=== PATIENT | female | born 1990 | race Two or more races ===

== ENCOUNTER 2020-01-06 17:00 | Emergency (ER) | payer OTHER, SELFPAY ==
--- NOTE | 2020-01-06 18:13 | ED_ITS ---
HPI - URI/Sore Throat General Chief Complaint: Upper Respiratory Symptoms Stated Complaint: asthma Time Seen by Provider: 01/06/20 17:55 Source: patient Mode of arrival: ambulatory Limitations: no limitations History of Present Illness HPI Narrative: 29 y/o female presenting with flu like symptoms since yesterday. Had COVID in July and this feels similar. Using PRN albuterol with improvement in dry, cough. MD elicited complaint: fever and cough Pertinent past history: asthma Onset (ago): day(s) (1) Consistency: intermittent Severity: moderate Able to tolerate fluids by mouth: Yes Exacerbating factors: exertion Relieving factors: other (albuterol inhaler ) Associated symptoms: headache, rhinorrhea and nasal congestion Treatments prior to arrival: none Related Data Previous Rx's Medication Instructions Recorded albuterol sulfate [Ventolin HFA] 2 puff INHALATION Q4-6H PRN #8 g NS 01/06/20 Allergies Allergy/AdvReac Type Severity Reaction Status Date / Time oxycodone [OXYCODONE] Allergy Unknown ITCHING, Unverified 12/23/19 16:28 NAUSEA, HOT Review of Systems Constitutional: Constitutional: Reports body ache(s), Reports chills, Reports fatigue, Reports fever(s) and Reports headache(s) Eyes: Eyes: Reports no additional eye complaints ENT: Reports headache(s) and Reports nasal congestion Cardiovascular: Cardiovascular: Denies chest pain, Denies pedal edema, Denies lightheadedness and Reports dyspnea on exertion Respiratory: Respiratory: Denies chest congestion, Reports cough, Denies hemoptysis and Reports dyspnea on exertion Gastrointestinal: Gastrointestinal: Denies abdominal pain, Denies diarrhea, Denies nausea and Denies vomiting Genitourinary: Genitourinary: Denies dysuria Musculoskeletal: Musculoskeletal: Reports myalgias Neurologic: Reports headache(s) Endocrine: Endocrine: Reports fatigue Hematologic/Lymphatic: Hematologic/Lymphatic: Reports no additional hematologic/lymphatic complaints Allergic/Immunologic: Allergic/Immunologic: Reports no additional allergic/immunologic complaints [facility] Past Medical History Medical History (Updated 01/06/20 @ 19:11 by Sindy Mcknight) Asthma Social History Social History Advance Directives: No Advance Directives Information Provided: No Physical Exam Vital Signs and I&O and Narrative: Vital Signs and I&O: Vital Signs Temp 98.5 F 01/06/20 19:07 Pulse 87 01/06/20 19:07 Resp 20 01/06/20 19:07 BP 126/78 01/06/20 19:07 Pulse Ox 96 01/06/20 19:07 Intake & Output 01/06/20 01/06/20 01/07/20 06:59 18:59 06:59 Weight 81.647 kg Body Mass Index 35.2 Const: General: cooperative, healthy appearing, comfortable, no acute distress and well developed Nutritional Appearance: overweight Orientation/consciousness: patient oriented x3 Limitations: no limitations HENMT: Head: Yes normal to inspection Ears: hearing grossly normal bilaterally Face and sinus: Yes normal facial exam Mouth: Normal oral and palatal mucosa present Teeth and gingiva: dentition normal Throat: Yes posterior oropharynx normal Eyes: General: appearance normal, both eyes and all related structures Neck: Neck: Yes normal visual inspection Chest: Chest palpation & inspection: normal inspection of the chest Resp: Effort & Inspection: normal respiratory effort and able to speak in complete sentences Auscultation: clear to auscultation bilaterally Cardio: Rate: regular rate Rhythm: regular rhythm Heart sounds: S1 normal heart sound present and S2 normal heart sound present Neuro: General: patient oriented x3 Psych: Appearance: grossly normal Course Course Hospital Course: 29 y/o female presengint with flu-like symptoms since yesterday. Dry cough most bothersome. Nervous she has COVID again. VSS and lungs are clear. COVID swab sent and patient counseled. Stable for d/c. MDM - URI/Sore Throat Differential Diagnosis Differential diagnosis: Likely upper respiratory infection, sinusitis, viral infection, bronchitis and influenza Medical Records Attestation: I reviewed the patient's medical records. Critical Care Time Critical Care Time Critical Care Time: No Discharge Plan Discharge Clinical Impression: Acute viral syndrome Asthma Qualifiers: Asthma severity: mild Asthma persistence: intermittent Asthma complication type: uncomplicated Qualified Code(s): J45.20 - Mild intermittent asthma, uncomplicated Patient Disposition: Home, Self-Care Instructions: Viral Syndrome (ED), COVID-19 (Coronavirus Disease 2019) (ED) Additional Instructions: You were tested for COVID-19 today. We will call you with the results in 2-4 days. Take over the counter Cold/Flu medications for symptomatic relief. Stay hydrated. Take tylenol and/or motrin for fevers. Prescriptions: New albuterol sulfate [Ventolin HFA] 90 mcg/actuation HFA aerosol inhaler 2 puff inhalation Q4-6H PRN (Reason: shortness of breath or wheezing) Qty: 8 RF: 0
[2020-01-06 19:07] VITALS: BP 126/78; PULSE 87; RESP 20; TEMP 36.9; O2SAT 96; BMI 35.2
== END 2020-01-06 19:30 | disposition home or self-care (01) ==
PROVIDERS: Emergency Provider Emergency Medicine
DX: B34.9 Viral infection, unspecified (principal); R05 Cough; J45.20 Mild intermittent asthma, uncomplicated; Z20.828 Contact with and (suspected) exposure to other viral communicable diseases; Z86.19 Personal history of other infectious and parasitic diseases; Z79.899 Other long term (current) drug therapy
CPT/HCPCS: 36415; 87635; 99283

== ENCOUNTER 2020-07-13 16:16 | Emergency (ER) | payer OTHER, SELFPAY ==
--- NOTE | ~2020-07-13 | XR_ITS ---
EXAMINATION: XR CHEST CLINICAL INFORMATION: Cough and wheezing COMPARISON: 08/04/2019 TECHNIQUE: Frontal view of the chest was obtained. FINDINGS: Small nodular density right midlung seen previously measuring about 9 mm appears slightly larger on the current study measuring 13 mm in size. The exam is otherwise unremarkable. XR/XR chest 1V IMPRESSION: No acute intrathoracic disease. CT scan of the chest is recommended for evaluation of possible pulmonary nodule.
--- NOTE | ~2020-07-13 | US_ITS ---
EXAMINATION: PELVIC ULTRASOUND CLINICAL INFORMATION: Pelvic pain and cramping with history of IUD COMPARISON: Prior OB ultrasounds from 2015 TECHNIQUE: Both transabdominal endovaginal scanning was performed. FINDINGS: An anteverted anteflexed uterus is present measuring 10.0 x 3.2 x 4.7 cm for a volume of 80 mL. The endometrium appears normal at 1 cm in thickness. The IUD is present in the lower uterine segment tilted slightly to the right. Close to the cervical os. A nabothian cyst is present in the cervix. Both ovaries appear normal with the right measuring 2.6 x 2.2 x 2.1 cm for a volume of 6.3 mL and the left measuring 2.7 x 2.5 x 2.5 cm for volume 8.8 mL. No free fluid is present in the cul-de-sac US/US pelvic and transvaginal IMPRESSION: The IUD is positioned low in the endometrial canal very close to the cervical os. The exam is otherwise unremarkable.
[2020-07-13 17:23] VITALS: BP 111/60; PULSE 111; RESP 16; TEMP 36.8; O2SAT 98; BMI 32.2
[2020-07-13] MEDS: predniSONE 20 MG TABLET 60 MG PO (18:23)
[2020-07-13 18:30] LABS: COVID-19 Test Negative (Negative); IDNOW Serial# 08D9AD1C
--- NOTE | 2020-07-13 18:35 | ED.URI ---
HPI - URI/Sore Throat General Chief Complaint: Upper Respiratory Symptoms Stated Complaint: Covid symptoms/Asthma Time Seen by Provider: 07/13/20 17:30 Source: patient Mode of arrival: ambulatory Limitations: no limitations History of Present Illness HPI Narrative: 30-year-old female with past medical history of asthma here with complaints of cough, wheezing, post-tussive vomiting, body aches x2 days. Using albuterol and nebulizer at home with continued symptoms. No fevers. No chest pain, shortness of breath, leg swelling or pain. Also complaining of some pelvic cramping which she has had intermittently for months with spotting. No urinary symptoms, vaginal discharge. She tells me she has an IUD in place and feels like it may have moved. She did call her OB but is unable to get an appointment for several months. MD elicited complaint: cough Related Data Previous Rx's Medication Instructions Recorded albuterol sulfate [Ventolin HFA] 2 puff INHALATION Q4-6H PRN #8 g NS 01/06/20 prednisone 40 mg PO DAILY #8 tab 07/13/20 Allergies Allergy/AdvReac Type Severity Reaction Status Date / Time oxycodone [OXYCODONE] Allergy Unknown ITCHING, Unverified 12/23/19 16:28 NAUSEA, HOT Review of Systems Review of Systems: Yes all other systems are reviewed and are negative Constitutional: Constitutional: Reports no additional constitutional complaints, Reports body ache(s), Denies chills, Denies fever(s), Denies headache(s) and Denies weakness Eyes: Eyes: Reports no additional eye complaints and Denies change in vision ENT: Reports system reviewed and no additional complaints, except as documented, Denies dizziness, Denies headache(s), Denies nasal congestion, Denies nasal discharge and Denies neck pain Cardiovascular: Cardiovascular: Reports no additional cardiovascular complaints, Denies chest pain, Denies leg edema and Denies dyspnea Respiratory: Respiratory: Reports no additional respiratory complaints, Reports cough and Denies dyspnea Comments: Wheezing Gastrointestinal: Gastrointestinal: Reports no additional gastrointestinal complaints, Denies abdominal pain, Denies diarrhea, Reports nausea and Reports vomiting Genitourinary: Genitourinary: Reports no additional female genitourinary complaints, Reports abnormal vaginal bleeding, Denies dysuria, Reports pelvic pain (Cramping), Denies flank pain, Denies urinary incontinence, Denies urinary hesitancy, Denies urinary urgency, Denies vaginal discharge, Denies vaginal odor and Denies vaginal pruritus Musculoskeletal: Musculoskeletal: Reports no additional musculoskeletal complaints, Denies back pain, Denies arthralgias, Denies joint swelling, Denies neck pain, Denies numbness and Denies tingling Integumentary/Breasts: Skin/Breast: Reports system reviewed and no additional complaints, except as docu and Denies rash Neurologic: Reports system reviewed and no additional complaints, except as documented, Denies Abnormal speech present, Denies dizziness, Denies headache(s), Denies numbness, Denies tingling and Denies weakness PMFSH Past Medical History Attestation statement: The following information was validated with the patient. Source: old records reviewed and nursing notes reviewed Medical History Asthma Social History Social History Alcohol intake: never Smoking Status: Never smoker Use of substances other than those prescribed or required for medical reasons: No Advance Directives: No Advance Directives Information Provided: Yes Physical Exam Vital Signs: Vital Signs: Last Vital Signs Temp 98.5 F 07/13/20 20:20 Pulse 103 H 07/13/20 20:36 Resp 16 07/13/20 20:20 BP 127/74 07/13/20 20:20 Pulse Ox 99 07/13/20 20:20 Body Mass Index 32.2 Const: General: cooperative, healthy appearing, comfortable and no acute distress Orientation/consciousness: patient oriented x3 Limitations: no limitations HENMT: Head: Yes normal to inspection Ears: hearing grossly normal bilaterally General nose exam: Normal external nose present Face and sinus: Yes normal facial exam Mouth: Normal oral and palatal mucosa present Throat: Yes posterior oropharynx normal Eyes: General: appearance normal, both eyes and all related structures Pupils: Equal, round and reactive pupils present Neck: Neck: Yes normal visual inspection Chest: Chest palpation & inspection: normal inspection of the chest Resp: Other: Inspiratory and expiratory wheezing. Frequent dry cough noted Effort & Inspection: normal respiratory effort Cardio: Rate: regular rate Rhythm: regular rhythm Peripheral pulses: Peripheral pulses 2+ throughout GI: Inspection: Yes normal to inspection Palpation (GI): Soft to palpation and nontender Auscultation: normal bowel sounds Back/Spine/Pelvis: Thoracic/Lumbar Spine: thoracic and lumbar spine normal to inspection Skin: General skin exam: no rashes or lesions noted Neuro: General: patient oriented x3, no focal motor deficits and normal sensation to monofilament Cranial nerves: Yes Equal, round and reactive pupils present Cognition (Neuro): normal cognition Speech: No Abnormal speech present Gait exam (Neuro): Normal gait present Motor exam (neuro): 5/5 motor strength present throughout Extrem: General: Yes normal to inspection, Yes no pedal edema and Yes no calf tenderness Course Course Course Narrative: 30-year-old female here with symptoms of cough, wheezing, posttussive vomiting, body aches times several days. Unrelieved with home med. Inspiratory and expiratory wheezing on exam. Stable saturation. Will give DuoNeb, p.o. prednisone. Check chest x-ray and COVID screen. Also complaining of pelvic cramping which has been on and off for months with some intermittent spotting. Feels like her IUD was shifted and she would like it checked. No urinary symptoms or vaginal discharge. Denies current sexual activity and is not concern for STD exposure. Will check pelvic ultrasound. 2119-chest x-ray negative with exception of a right pulmonary nodule. Patient was informed of this result. She it was discussed with her that she will need an outpatient CT scan and that she should follow-up with her primary care doctor for this. COVID screen negative. Repeat exam with improved lung sounds and oxygen saturation greater than 98%. Likely asthma exacerbation. Will treat with course of prednisone and have follow-up with pulmonology. Patient tells me that she has been suffering with her asthma for the last year after having COVID-19 and has persistent shortness of breath and wheezing on relief with home albuterol. Will see pulmonology can assist with her symptoms. Pelvic ultrasound shows IUD in place. UA negative. Urine negative. Patient requesting for removal. Will refer to aviation engineer. Reviewed worrisome signs and symptoms of when to return to the emergency department. Comfortable discharge home. MDM - URI/Sore Throat Medical Records Attestation: I reviewed the patient's medical records. Lab Data Attestation: I reviewed the patient's lab results. Labs: Lab Results 07/13/20 07/13/20 07/13/20 Range/Units 18:11 20:25 20:25 Urine Color YELLOW Urine Appearance CLEAR Urine pH 6.0 (5.0-8.0) Ur Specific [place] >= 1.030 H (1.005-1.025) Urine Protein NEG (NEG-TRACE) MG/DL Urine Glucose (UA) NEG (NEG) MG/DL Urine Ketones NEG (NEG) MG/DL Urine Blood 1+ H (NEG) Urine Nitrite NEG (NEG) Ur Leukocyte Esterase NEG (NEG) Urine RBC 1-4 (0) /HPF Urine WBC 1-4 (0-4) /HPF Ur Squamous Epith Cells 1+ /LPF Urine Bacteria TRACE /LPF Urine Test NEGATIVE (NEGATIVE) COVID-19 ([place]) Negative (Negative) COVID-19 Clin Com See Note Imaging Data Chest x-ray: Attestation: I personally reviewed and interpreted this imaging study as follows: Radiologist's impression: EXAMINATION: XR CHEST CLINICAL INFORMATION: Cough and wheezing COMPARISON: 08/04/2019 TECHNIQUE: Frontal view of the chest was obtained. FINDINGS: Small nodular density right midlung seen previously measuring about 9 mm appears slightly larger on the current study measuring 13 mm in size. The exam is otherwise unremarkable. XR/XR chest 1V IMPRESSION: No acute intrathoracic disease. CT scan of the chest is recommended for evaluation of possible pulmonary nodule. pelvic US: Attestation: I personally reviewed and interpreted this imaging study as follows: Radiologist's impression: EXAMINATION: PELVIC ULTRASOUND CLINICAL INFORMATION: Pelvic pain and cramping with history of IUD COMPARISON: Prior OB ultrasounds from 2014 TECHNIQUE: Both transabdominal endovaginal scanning was performed. FINDINGS: An anteverted anteflexed uterus is present measuring 10.0 x 3.2 x 4.7 cm for a volume of 80 mL. The endometrium appears normal at 1 cm in thickness. The IUD is present in the lower uterine segment tilted slightly to the right. Close to the cervical os. A nabothian cyst is present in the cervix. Both ovaries appear normal with the right measuring 2.6 x 2.2 x 2.1 cm for a volume of 6.3 mL and the left measuring 2.7 x 2.5 x 2.5 cm for volume 8.8 mL. No free fluid is present in the cul-de-sac US/US pelvic and transvaginal IMPRESSION: The IUD is positioned low in the endometrial canal very close to the cervical os. The exam is otherwise unremarkable. Discharge Plan Discharge Clinical Impression: Asthma, Pelvic pain Patient Disposition: Home, Self-Care Instructions: Asthma (ED), Pelvic Pain (ED) Additional Instructions: Next dose of prednisone tomorrow I have given you a referral for pulmonology and aviation engineer Your chest x-ray shows what might be a pulmonary nodule. It is recommend that you follow-up with your primary care doctor for a CT scan of the chest Prescriptions: New prednisone 20 mg tablet 40 mg PO DAILY Qty: 8 RF: 0 No Action albuterol sulfate [Ventolin HFA] 90 mcg/actuation HFA aerosol inhaler 2 puff inhalation Q4-6H PRN (Reason: shortness of breath or wheezing) Qty: 8 RF: 0 Referrals: Silas Calix MD [Physician] - 2 days Austin Harley MD [Physician] - 2 days Interventions: ED Discharge Assessment Last Done: 07/13/20 21:02 Discharge Date/Time: 07/13/20 21:19
[2020-07-13 18:37] VITALS: BP 126/59; PULSE 82; RESP 16; TEMP 36.9; O2SAT 98
[2020-07-13 20:20] VITALS: BP 127/74; PULSE 102; RESP 16; TEMP 36.9; O2SAT 99
[2020-07-13 20:33] LABS: Glucose Urine UA NEG (NEG); Leukocyte Esterase Urine NEG (NEG); Nitrite Urine NEG (NEG); Specific Gravity - Urine >= 1.030 (1.005-1.025); Urine Blood 1+ (NEG); Urine Ketones NEG (NEG); Urine Protein NEG (NEG-TRACE)
[2020-07-13 20:35] LABS: Appearance Urine CLEAR; Color Urine YELLOW; UPreg QC Valid YES; Urine Pregnancy NEGATIVE (NEGATIVE)
[2020-07-13 20:36] VITALS: PULSE 103; O2SAT 99
[2020-07-13] MEDS: Albuterol/Iprat 2.5/0.5MG 3 ML AMPUL.NEB INHALE (20:36)
[2020-07-13 20:40] LABS: Bacteria Urine TRACE /LPF; Squamous Epithelial Cell Urine 1+ /LPF
== END 2020-07-13 21:19 | disposition home or self-care (01) ==
PROVIDERS: Nurse Practitioner Family; Emergency Provider Emergency Medicine; PCP Pediatrics
DX: R05 Cough (principal); M79.10 Myalgia, unspecified site; R10.2 Pelvic and perineal pain; Z20.822 Contact with and (suspected) exposure to COVID-19; J45.909 Unspecified asthma, uncomplicated; R91.1 Solitary pulmonary nodule
CPT/HCPCS: 36415; 71045; 76830; 76856; 81001; 81025; 87635; 94640; 99284

== ENCOUNTER → 2020-07-17 15:31 | Outpatient (BNVA) | payer OTHER, SELFPAY | PROVIDERS: PCP Pediatrics; Visit Provider Internal Medicine | DX: J45.20 Mild intermittent asthma, uncomplicated (principal); R91.1 Solitary pulmonary nodule; J40 Bronchitis, not specified as acute or chronic; Z79.51 Long term (current) use of inhaled steroids | CPT/HCPCS: 99202 ==

== ENCOUNTER 2020-10-21 23:16 | Emergency (ER) | payer OTHER, SELFPAY ==
--- NOTE | ~2020-10-21 | XR_ITS ---
EXAMINATION: XR CHEST CLINICAL INFORMATION: Dyspnea. COMPARISON: Most recent chest radiograph dated 07/13/2020. TECHNIQUE: Frontal view of the chest was obtained. FINDINGS: The lungs are clear. The cardiomediastinal silhouette is normal in size. There is no pleural effusion or pneumothorax. No acute osseous abnormality. XR/XR chest 1V IMPRESSION: No acute cardiopulmonary findings. Previously seen nodular density within the right midlung is not well visualized on the current examination.
[2020-10-21 23:31] VITALS: BP 131/90; PULSE 112; RESP 28; TEMP 37.2; O2SAT 98; BMI 31.1
--- NOTE | 2020-10-21 23:35 | ED_ITS ---
HPI - Asthma General Chief Complaint: Asthma Stated Complaint: SOB/asthma Time Seen by Provider: 10/21/20 23:35 Source: patient and family (Mother) Mode of arrival: ambulatory History of Present Illness HPI Narrative: 30-year-old female with history of asthma and bronchitis presents with 1 week of worsening shortness of breath and states that her pump is no longer working and she has been using at approximately 3 to 4 times a day without improvement. She denies any associated COVID-19 exposure, travel, fevers, chills, body aches, headache, new cough or sore throat. Related Data Previous Rx's Medication Instructions Recorded albuterol sulfate [Ventolin HFA] 2 puff INHALATION Q4-6H PRN #8 g NS 01/06/20 prednisone 40 mg PO DAILY #8 tab 07/13/20 azithromycin 250 mg tablet See Rx Instructions PO .COMPLEX 5 07/17/20 Days #6 tab prednisone 40 mg PO DAILY 4 Days #8 tab 10/22/20 Allergies Allergy/AdvReac Type Severity Reaction Status Date / Time oxycodone [OXYCODONE] Allergy Unknown ITCHING, Verified 10/21/20 23:30 NAUSEA, HOT Review of Systems Review of Systems: Pertinent positives and negatives as stated HPI 10 point review of systems is otherwise negative. PMFSH Past Medical History Source: nursing notes reviewed Medical History Asthma Bronchitis Pulmonary nodule, right Social History Social History Alcohol intake: never Advance Directives: No Advance Directives Information Provided: No Physical Exam Vital Signs: Vital Signs: Last Vital Signs Temp 98.9 F 10/21/20 23:31 Pulse 131 H 10/22/20 01:23 Resp 20 10/22/20 01:23 BP 120/75 10/22/20 01:23 Pulse Ox 99 10/22/20 01:23 Body Mass Index 31.1 VITAL SIGNS: Reviewed. GENERAL: Well developed, well nourished, in no acute distress. HEAD: Normocephalic/atraumatic EYES: PERRLA, EOMI EARS: Ext canals without abnormality, TMs non-bulging and non-erythematous NOSE: Nares patent bilateral OROPHARYNX: no oral lesions noted, posterior pharynx clear NECK: Supple, no adenopathy LUNGS: Audible wheeze, decreased breath sounds, tachypnea, but able to speak in full sentences. SpO2<98> CARDIOVASCULAR: Regular rate and rhythm without noted murmurs ABDOMEN: Obese, soft, non-tender, non-distended with bowel sounds. SKIN: Inspection of the skin reveals no rashes NEUROLOGIC: Alert and oriented x 4. Course Course Course Narrative: 30-year-old female with history and clinical presentation suggestive of moderate to severe asthma exacerbation. Patient received steroids, to hour long albuterol treatments as well as Mag sulfate. On re- evaluation patient has had almost complete resolution of her symptoms, is relaxed and breathing easily with good oxygenation. Review of all investigations otherwise negative for acute findings. MDM - Asthma Lab Data Labs: Lab Results 10/21/20 Range/Units 23:57 COVID-19 ([place]) Negative (Negative) COVID-19 Clin Com See Note Discharge Plan Discharge Clinical Impression: Asthma exacerbation Patient Disposition: Home, Self-Care Instructions: Asthma (ED) Additional Instructions: Resume all home medications as prescribed. Over the next 24-48 hours you will need to consistently use your albuterol inhaler every 4-6 hours administering 2 pumps. Please follow-up with your primary care provider for re-evaluation and further outpatient management. Return to the ER for acute worsening of symptoms. Prescriptions: New prednisone 20 mg tablet 40 mg PO DAILY 4 Days Qty: 8 RF: 0 No Action prednisone 20 mg tablet 40 mg PO DAILY Qty: 8 RF: 0 albuterol sulfate [Ventolin HFA] 90 mcg/actuation HFA aerosol inhaler 2 puff inhalation Q4-6H PRN (Reason: shortness of breath or wheezing) Qty: 8 RF: 0 azithromycin 250 mg tablet See Rx Instructions PO .COMPLEX 5 Days Qty: 6 RF: 0 Referrals: Physician,Unknown [Primary Care Provider] - 2 days
--- NOTE | 2020-10-21 23:35 | PC.NURSE ---
SPO2 98% ROOM AIR, NO AUDIBLE WHEEZING UPON AUSCULTATION WITH SCOPE. SKIN WARM/PINK/DRY.
[2020-10-21] MEDS: methylPREDNISolone Sod Succ 125 MG/2 ML VIAL IVPUSH (23:42)
[2020-10-21] MEDS: Albuterol Sulfate (0.083%) 2.5 MG/3 ML VIAL.NEB 10 MG INHALE (23:51)
[2020-10-21 23:52] VITALS: PULSE 105; O2SAT 95
--- NOTE | 2020-10-21 23:52 | PC.NURSE ---
This RN to bedside approx 10 min ago, notes pt with audible wheezing, tripoding, able to speak in 4-5 word sentences. Pt lungs with diminished breath sounds throughout. Pt placed on facing baster jumpbasting, Dr Beach brought to bedside. Dr Beach ordered solumedrol and 10mg albuterol updraft. Pt medicated with solumedrol and respiratory called. Prior to respiratory's arrival to ED, this RN medicated pt with albuterol neb. Pt ST on facing baster jumpbasting. Pt to be swabbed for covid. Stretcher low locked, rails raised, call hammonds within reach.
[2020-10-21 23:54] VITALS: BP 130/70; PULSE 108; RESP 26; O2SAT 98
[2020-10-22 00:30] VITALS: PULSE 128; O2SAT 99
[2020-10-22 00:36] LABS: COVID-19 Test Negative (Negative); IDNOW Serial# 08D9AD1C
[2020-10-22] MEDS: Albuterol Sulfate (0.083%) 2.5 MG/3 ML VIAL.NEB 10 MG INHALE (00:36)
[2020-10-22] MEDS: Magnesium Sulfate/H2O 2 GM/50 ML PIGGYBACK IV (00:37)
[2020-10-22 00:38] VITALS: BP 142/50; PULSE 130; RESP 24; O2SAT 98
--- NOTE | 2020-10-22 00:40 | PC.NURSE ---
this RN confirmed 2ng 10mg albuterol tx with dr wilkins.
--- NOTE | 2020-10-22 01:22 | PC.NURSE ---
Pt completed 2nd neb tx, reports I can breathe now Pt speaking in complete clear sentences. IV mag continues to infuse.
[2020-10-22 01:23] VITALS: BP 120/75; PULSE 131; RESP 20; O2SAT 99
[2020-10-22 02:29] VITALS: BP 118/63; PULSE 126; RESP 23; O2SAT 96
== END 2020-10-22 02:37 | disposition home or self-care (01) ==
PROVIDERS: Emergency Provider Student in an Organized Health Care Education/Training Program
DX: J45.901 Unspecified asthma with (acute) exacerbation (principal); Z79.899 Other long term (current) drug therapy; Z20.822 Contact with and (suspected) exposure to COVID-19
CPT/HCPCS: 36415; 71045; 87635; 94640; 94644; 94645; 96365; 96366; 96375; 99284; J2930; J3475

== ENCOUNTER → 2020-11-16 10:50 | Outpatient (BNVA) | payer OTHER, SELFPAY | PROVIDERS: Visit Provider Advanced Practice Midwife | DX: Z30.432 Encounter for removal of intrauterine contraceptive device (principal) | CPT/HCPCS: 58301 ==

== ENCOUNTER 2021-01-09 20:42 | Emergency (ER) | payer OTHER, SELFPAY ==
--- NOTE | ~2021-01-09 | US_ITS ---
EXAMINATION: US OBSTETRICAL ULTRASOUND CLINICAL INFORMATION: 8 weeks with pain and vaginal bleeding. Rule out miscarriage. COMPARISON: None. LMP: 11/15/2020. Gestational age by maternal dates is 8 weeks 0 days. Estimated date of delivery by maternal dates is 08/22/2021. TECHNIQUE: Transabdominal and endovaginal sonographic evaluation of the pelvis. FINDINGS: There is a single intrauterine gestational sac with visible yolk sac. There is no pole seen at this time. There is a mean sac diameter measuring 0.94 cm. This yields a gestational age of 5 weeks 4 days. Trace fluid noted near the gestational sac which may represent a subchorionic hemorrhage measuring 0.4 x 0.3 x 0.3 cm.. JOSE (estimated date of delivery): 09/08/2021 +/- 4 days. MATERNAL ADNEXA: The right maternal ovary measures 2.6 x 2 x 1.9 cm. 1.5 cm corpus luteal cyst noted. The left maternal ovary measures 2.4 x 2.2 x 1.7 cm. There is no significant maternal adnexal mass. Trace pelvic free fluid. US/US OB pelvic and transvaginal IMPRESSION: 1. Single intrauterine gestational sac with ultrasound gestational age of 5 weeks 4 days +/- 4 days. No pole seen, likely associated with the early stage of . 2. Estimated date of delivery is 09/08/2021 +/- 4 days. 3. Likely tiny subchorionic hemorrhage.
[2021-01-09 21:48] VITALS: BP 134/85; PULSE 94; RESP 18; TEMP 36.8; O2SAT 100; BMI 44.9
[2021-01-09 22:45] LABS: MANUAL DIFF FLAG NO
[2021-01-09 22:46] LABS: Basophils Percent Auto 0.2 % (0-2); Eosinophils Absolute Auto 0.1 X10*3/uL (0.0-0.4); Eosinophils Percent Auto 1.4 % (0-4); Hematocrit 38.4 % (37-47); Imm Gran Abs Auto 0.03 X10*3/uL (0.00-0.03); Imm Gran Pct Auto 0.3 % (0.0-0.4); Lymphocytes Absolute Auto 2.3 X10*3/uL (1.2-4.9); Lymphocytes Percent Auto 23.6 % (20-40); Mean Corpuscular HGB Conc 33.9 g/dl (31.0-35.0); Mean Corpuscular Volume 91.4 fL (80-98); Mean Platelet Volume 10.2 fL (9.4-12.3); Monocytes Absolute Auto 0.6 X10*3/uL (0.1-1.2); Neutrophils Absolute Auto 6.6 X10*3/uL (2.0-8.3); Neutrophils Percent Auto 68.5 % (45-73); Platelet Count 226 X10*3/uL (160-400); Red Cell Distribution Width 12.1 % (11.0-16.0); White Blood Count 9.7 X10*3/uL (4.8-10.8)
[2021-01-09 22:48] LABS: Appearance Urine HAZY; Color Urine YELLOW; Glucose Urine UA NEG (NEG); Leukocyte Esterase Urine 2+ (NEG); Nitrite Urine NEG (NEG); Specific Gravity - Urine 1.025 (1.005-1.025); UACC Culture Trigger YES; Urine Blood 3+ (NEG); Urine Ketones NEG (NEG); Urine Protein NEG (NEG-TRACE)
[2021-01-09 22:49] LABS: UPreg QC Valid YES; Urine Pregnancy POSITIVE (NEGATIVE)
[2021-01-09 22:53] LABS: Mucus Urine 2+ /LPF; Squamous Epithelial Cell Urine 3+ /LPF
[2021-01-09 22:54] LABS: Bacteria Urine 2+ /LPF; Renal Epithelial Cells Urine 1+ /LPF; UACC CULT YES
[2021-01-09 23:03] LABS: Alanine Aminotransferase 36 U/L (0-31); Albumin Level 4.2 g/dL (3.5-5.0); Alkaline Phosphatase 65 U/L (39-117); Anion Gap 13 (12-20); Aspartate Amino Transferase 16 U/L (5-31); Bilirubin Total 0.3 mg/dL (0.0-1.0); Blood Urea Nitrogen 7 mg/dL (9-16); Calcium 8.8 mg/dL (8.4-10.2); Carbon Dioxide 22 mmol/L (22-29); Chloride 109 mmol/L (96-108); Creatinine Clr Calc Pharmacy 121.1; Estimated Glomerular Filt Rate > 60; Glucose Random 92 mg/dL (60-115); Potassium 4.1 mmol/L (3.3-5.1); Sodium 140 mmol/L (135-145); Total Protein 6.9 g/dL (6.5-8.0)
[2021-01-09 23:45] LABS: HCG Quantitative 4960 mIU/mL
[2021-01-10] VITALS: BP 94/53; PULSE 86; RESP 18; TEMP 36.6; O2SAT 99
--- NOTE | 2021-01-10 00:10 | ED.FEMALEGU ---
HPI - Female Genitourinary General Chief complaint: Vaginal Bleeding Stated complaint: vag bleed - 7wks preg Time Seen by Provider: 01/09/21 22:50 Source: patient Mode of arrival: ambulatory Limitations: no limitations History of Present Illness HPI Narrative: Patient 4 or 8 months complaining of pain in the left lower abdominal and suprapubic area with bright red vaginal spotting just started 2 hours prior to arrival no nausea no vomiting Related Data Home Medications Medication Instructions Recorded Confirmed levonorgestrel 20 mcg/24 hours (7 INTRAUTERINE 11/16/20 yrs) 52 mg intrauterine device (Mirena) Previous Rx's Medication Instructions Recorded Ventolin HFA 90 mcg/actuation 2 puff INHALATION Q4-6H PRN #8 g NS 01/06/20 aerosol inhaler (albuterol sulfate) prednisone 20 mg tablet 40 mg PO DAILY #8 tab 07/13/20 azithromycin 250 mg tablet See Rx Instructions PO .COMPLEX 5 07/17/20 Days #6 tab prednisone 20 mg tablet 40 mg PO DAILY 4 Days #8 tab 10/22/20 Allergies Allergy/AdvReac Type Severity Reaction Status Date / Time oxycodone [OXYCODONE] Allergy Unknown ITCHING, Verified 11/16/20 11:00 NAUSEA, HOT Review of Systems Review of Systems: Yes all other systems are reviewed and are negative PMFSH Past Medical History Medical History Asthma Bronchitis Pulmonary nodule, right Surgical History History of tonsillectomy Hx of adenoidectomy Hx of section Social History Social History Alcohol intake: never Patient Tobacco Use Status: Never used Tobacco Advance Directives: No Advance Directives Information Provided: No Patient : Yes Physical Exam Vital Signs: Vital Signs: Last Vital Signs Temp 97.9 F 01/10/21 00:00 Pulse 86 01/10/21 00:00 Resp 18 01/10/21 00:00 BP 115/70 01/10/21 00:19 Pulse Ox 99 01/10/21 00:00 Body Mass Index 44.9 Appearance: Alert. Oriented X3. No acute distress. Eyes: PERRLA, No Nystagmus ENT: Pharynx normal. Oral Mucosa moist Neck: Normal inspection. Neck supple. CVS: Normal heart rate and rhythm. Pulses normal. Respiratory: No respiratory distress. Equal air entry bilateral, no wheezing/rales/rhonchi Abdomen: Soft and nontender. Bowel sounds are present, no mass palpable, no CVA tenderness Skin: Skin warm and dry. Normal skin color. Normal skin turgor. Extremities: No lower extremity edema. No calf tenderness Neuro: Oriented X 3. 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 Result diagrams: 01/09/21 22:35 01/09/21 22:35 Labs: Lab Results 01/09/21 01/09/21 01/09/21 Range/Units 22:35 22:35 22:35 WBC 9.7 (4.8-10.8) X10*3/uL RBC 4.20 (4.20-5.50) X10*6/uL Hgb 13.0 (12.0-16.0) g/dl Hct 38.4 (37-47) % MCV 91.4 (80-98) fL MCH 31.0 (27.0-33.0) pg MCHC 33.9 (31.0-35.0) g/dl RDW 12.1 (11.0-16.0) % Plt Count 226 (160-400) X10*3/uL MPV 10.2 (9.4-12.3) fL Immature Gran % (Auto) 0.3 (0.0-0.4) % Neut % (Auto) 68.5 (45-73) % Lymph % (Auto) 23.6 (20-40) % [place] % (Auto) 6.0 (2-11) % Eos % (Auto) 1.4 (0-4) % Baso % (Auto) 0.2 (0-2) % Lymph # (Auto) 2.3 (1.2-4.9) X10*3/uL [place] # (Auto) 0.6 (0.1-1.2) X10*3/uL Eos # (Auto) 0.1 (0.0-0.4) X10*3/uL Baso # (Auto) 0.0 (0.0-0.2) X10*3/uL Abs Immat Gran (auto) 0.03 (0.00-0.03) X10*3/uL Absolute Neuts (auto) 6.6 (2.0-8.3) X10*3/uL Absolute Nucleated RBC 0.000 (0.0-0.012) X10*3/uL Nucleated RBC % (auto) 0.0 (0.0-0.2) /100WBC Sodium 140 (135-145) mmol/L Potassium 4.1 (3.3-5.1) mmol/L Chloride 109 H (96-108) mmol/L Carbon Dioxide 22 (22-29) mmol/L Anion Gap 13 (12-20) BUN 7 L (9-16) mg/dL Creatinine 0.74 (0.5-1.4) mg/dL Estim Creat Clear Calc 121.1 Estimated GFR > 60 Random Glucose 92 (60-115) mg/dL Calcium 8.8 (8.4-10.2) mg/dL Total Bilirubin 0.3 (0.0-1.0) mg/dL AST 16 (5-31) U/L ALT 36 H (0-31) U/L Alkaline Phosphatase 65 (39-117) U/L Total Protein 6.9 (6.5-8.0) g/dL Albumin 4.2 (3.5-5.0) g/dL Beta HCG, Quant 4960 mIU/mL Urine Color YELLOW Urine Appearance HAZY Urine pH 6.0 (5.0-8.0) Ur Specific [place] 1.025 (1.005-1.025) Urine Protein NEG (NEG-TRACE) MG/DL Urine Glucose (UA) NEG (NEG) MG/DL Urine Ketones NEG (NEG) MG/DL Urine Blood 3+ H (NEG) Urine Nitrite NEG (NEG) Ur Leukocyte Esterase 2+ H (NEG) Urine RBC 5-9 H (0) /HPF Urine WBC 10-14 H (0-4) /HPF Ur Squamous Epith Cells 3+ /LPF Ur Renal Epithelial Cell 1+ /LPF Urine Bacteria 2+ /LPF Urine Mucus 2+ /LPF Urine Test (NEGATIVE) 01/09/21 Range/Units 22:35 WBC (4.8-10.8) X10*3/uL RBC (4.20-5.50) X10*6/uL Hgb (12.0-16.0) g/dl Hct (37-47) % MCV (80-98) fL MCH (27.0-33.0) pg MCHC (31.0-35.0) g/dl RDW (11.0-16.0) % Plt Count (160-400) X10*3/uL MPV (9.4-12.3) fL Immature Gran % (Auto) (0.0-0.4) % Neut % (Auto) (45-73) % Lymph % (Auto) (20-40) % [place] % (Auto) (2-11) % Eos % (Auto) (0-4) % Baso % (Auto) (0-2) % Lymph # (Auto) (1.2-4.9) X10*3/uL [place] # (Auto) (0.1-1.2) X10*3/uL Eos # (Auto) (0.0-0.4) X10*3/uL Baso # (Auto) (0.0-0.2) X10*3/uL Abs Immat Gran (auto) (0.00-0.03) X10*3/uL Absolute Neuts (auto) (2.0-8.3) X10*3/uL Absolute Nucleated RBC (0.0-0.012) X10*3/uL Nucleated RBC % (auto) (0.0-0.2) /100WBC Sodium (135-145) mmol/L Potassium (3.3-5.1) mmol/L Chloride (96-108) mmol/L Carbon Dioxide (22-29) mmol/L Anion Gap (12-20) BUN (9-16) mg/dL Creatinine (0.5-1.4) mg/dL Estim Creat Clear Calc Estimated GFR Random Glucose (60-115) mg/dL Calcium (8.4-10.2) mg/dL Total Bilirubin (0.0-1.0) mg/dL AST (5-31) U/L ALT (0-31) U/L Alkaline Phosphatase (39-117) U/L Total Protein (6.5-8.0) g/dL Albumin (3.5-5.0) g/dL Beta HCG, Quant mIU/mL Urine Color Urine Appearance Urine pH (5.0-8.0) Ur Specific [place] (1.005-1.025) Urine Protein (NEG-TRACE) MG/DL Urine Glucose (UA) (NEG) MG/DL Urine Ketones (NEG) MG/DL Urine Blood (NEG) Urine Nitrite (NEG) Ur Leukocyte Esterase (NEG) Urine RBC (0) /HPF Urine WBC (0-4) /HPF Ur Squamous Epith Cells /LPF Ur Renal Epithelial Cell /LPF Urine Bacteria /LPF Urine Mucus /LPF Urine Test POSITIVE H (NEGATIVE) Discharge Plan Discharge Clinical Impression: Threatened Patient Disposition: Home, Self-Care Instructions: Threatened Miscarriage (ED) Additional Instructions: Rest as advised Follow-up with your OB G Report to ER if heavy bleeding Prescriptions: No Action prednisone 20 mg tablet 40 mg PO DAILY Qty: 8 RF: 0 prednisone 20 mg tablet 40 mg PO DAILY 4 Days Qty: 8 RF: 0 albuterol sulfate [Ventolin HFA] 90 mcg/actuation HFA aerosol inhaler 2 puff inhalation Q4-6H PRN (Reason: shortness of breath or wheezing) Qty: 8 RF: 0 azithromycin 250 mg tablet See Rx Instructions PO .COMPLEX 5 Days Qty: 6 RF: 0 Mirena 20 mcg/24 hours (6 yrs) 52 mg intrauterine device intrauterine RF: 0 Referrals: Austin Harley MD [Physician] - 1 week
[2021-01-10 00:19] VITALS: BP 115/70
[2021-01-10] MEDS: Ondansetron ODT 4 MG TAB.RAPDIS TRANSLINGU (00:25)
[2021-01-10] MEDS: Acetaminophen 325 MG TABLET 650 MG PO (00:25)
== END 2021-01-10 01:56 | disposition home or self-care (01) ==
PROVIDERS: Emergency Provider Internal Medicine
DX: O20.9 Hemorrhage in early pregnancy, unspecified (principal); Z3A.20 20 weeks gestation of pregnancy
CPT/HCPCS: 36415; 76801; 76817; 80053; 81001; 81025; 84702; 85025; 87086; 99284

== ENCOUNTER 2021-01-18 16:57 | Emergency (ER) | payer OTHER, SELFPAY ==
--- NOTE | ~2021-01-18 | US_ITS ---
EXAMINATION: US OBSTETRICAL ULTRASOUND CLINICAL INFORMATION: Bleeding and decreased serum quantitative hCG COMPARISON: 01/10/2021. LMP: 11/05/2020. Gestational age by maternal dates is 10 weeks 4 days. Estimated date of delivery by maternal dates is 08/12/2021. TECHNIQUE: Ultrasound of the maternal pelvis is performed using transabdominal transducer. M-mode Doppler is also performed. FINDINGS: There is a single intrauterine gestational sac without a yolk sac or embryo. Based on the mean sac diameter of 1.3 cm, the sonographic age is 6 weeks 1 day, sonographic JOSE 09/12/2021 since the prior ultrasound 01/10/2021, there has been 4 days less than expected interval growth. No embryo or cardiac activity identified. CRL (crown rump length): 1.3 cm (6 weeks 1 day +/- 4 days). JOSE (estimated date of delivery): 09/12/2021 +/- 4 days. MATERNAL ADNEXA: The right maternal ovary measures 2.5 x 2.3 x 1.9 cm. No adnexal mass. The left maternal ovary measures 2.2 x 2.0 x 1.6 cm. No adnexal mass. There is no significant maternal adnexal mass. No maternal pelvic ascites. US/US OB <= 14 weeks fetus IMPRESSION: 1. Single intrauterine gestation with ultrasound gestational age of 6 weeks 1 day +/- 4 days. Since the prior study 01/10/2021, there has been 4 days less than expected interval growth. The absence of an embryo with a heart beat 7-10 days after a scan that showed a gestational sac with a yolk sac (01/10/2021) is suspicious but not diagnostic of early failure. Consider additional follow-up ultrasound on 01/25/2021 for later as clinically indicated. 2. Estimated date of delivery is 09/12/2021 +/- 4 days. 3. No maternal adnexal mass or pelvic ascites.
[2021-01-18 16:59] VITALS: BP 132/78; PULSE 93; RESP 18; TEMP 36.1; O2SAT 99; BMI 46.8
--- NOTE | 2021-01-18 17:22 | ED.PREGNANCY ---
HPI - General Chief complaint: Vaginal Bleeding Stated complaint: vag bleed 6wks preg Time Seen by Provider: 01/18/21 17:08 Source: patient and old records reviewed Mode of arrival: ambulatory Limitations: no limitations History of Present Illness Complaint: other (pelvic pain, spotting) Onset (ago): hour(s) (since 2am today) Pain Consistency: intermittent Location: pelvis Severity: moderate Quality: Cramping Radiation: abdomen Relieving factors: none Exacerbating factors: none Associated symptoms: vaginal bleeding (no clots, one pad all day, when she wipes) Vaginal bleeding: light Patient : Yes Number of Weeks : 6 weeks by US on 01/10 OB History - Current : other (second visit for bleeding no OB appointment until 01/23) OB History - Previous Pregnancies: preeclampsia care: previous ultrasound confirms IUP Related Data Home Medications Medication Instructions Recorded Confirmed levonorgestrel 20 mcg/24 hours (7 INTRAUTERINE 11/16/20 yrs) 52 mg intrauterine device (Mirena) Previous Rx's Medication Instructions Recorded Ventolin HFA 90 mcg/actuation 2 puff INHALATION Q4-6H PRN #8 g NS 01/06/20 aerosol inhaler (albuterol sulfate) prednisone 20 mg tablet 40 mg PO DAILY #8 tab 07/13/20 azithromycin 250 mg tablet See Rx Instructions PO .COMPLEX 5 07/17/20 Days #6 tab prednisone 20 mg tablet 40 mg PO DAILY 4 Days #8 tab 10/22/20 Allergies Allergy/AdvReac Type Severity Reaction Status Date / Time oxycodone [OXYCODONE] Allergy Unknown ITCHING, Verified 11/16/20 11:00 NAUSEA, HOT Review of Systems Review of Systems: Constitutional : No Fever, No Chills ENT/Mouth : No sore throat, No Rhinorrhea Eyes: No Eye Pain, No Redness Cardiovascular : No Chest Pain, No SOB Respiratory : No Cough, No Sputum, No Wheezing Gastrointestinal : no Nausea, No Vomiting, No Diarrhea, positive abdominal pain, Genitourinary : positive irregular bleeding, No Dysuria, No Urinary Frequency, positive pelvic pain Musculoskeletal : No Myalgias Skin : No rash Neuro : No Weakness, No Headache Psych : No Anxiety/Panic, No Depression Heme/Lymph: No bruising, No Lymphadenopathy Endocrine : No Polyuria, No Polydipsia All other systems reviewed and are negative PMFSH Past Medical History Attestation statement: The following information was validated with the patient. Medical History Asthma Bronchitis Pulmonary nodule, right Surgical History History of tonsillectomy Hx of adenoidectomy Hx of section Social History Social History Alcohol intake: never Patient Tobacco Use Status: Never used Tobacco Advance Directives: No Advance Directives Information Provided: No Patient : Yes Physical Exam Vital Signs: Vital Signs: Last Vital Signs Temp 98.3 F 01/18/21 17:25 Pulse 88 01/18/21 17:25 Resp 17 01/18/21 17:25 BP 131/74 01/18/21 17:25 Pulse Ox 97 01/18/21 17:25 Body Mass Index 46.8 Appearance: Alert. Oriented X3. No acute distress. Eyes: Pupils equal, round and reactive to light. ENT: Pharynx normal. Neck: Normal inspection. Neck supple. CVS: Normal heart rate and rhythm. Pulses normal. Respiratory: No respiratory distress. Breath sounds normal. Abdomen: Soft and mild diffuse ttp no rebound or guarding : no blood noted, os closed Skin: Skin warm and dry. Normal skin color. Normal skin turgor. Extremities: No lower extremity edema. No calf ttp Neuro: Oriented X 3. No motor deficit. No sensory deficit. Course Course Course Narrative: message sent to Dr. Harley 740pm - outpatient follow up MDM - OB/Uterine Contractions MDM Narrative Medical decision making narrative: hx of pre-eclampsia c/o abdominal cramps like its her period and spotting when she wipes, she had confirmed IUP on 01/10 - will obtain basic labs, UA, given tylenol, quant level and Rh status, dispo per results and findings. Likely threatened miscarriage Lab Data Result diagrams: 01/18/21 17:55 01/18/21 17:55 Labs: Lab Results 01/18/21 01/18/21 01/18/21 Range/Units 17:55 17:55 17:55 WBC 7.0 (4.8-10.8) X10*3/uL RBC 4.48 (4.20-5.50) X10*6/uL Hgb 13.8 (12.0-16.0) g/dl Hct 40.5 (37-47) % MCV 90.4 (80-98) fL MCH 30.8 (27.0-33.0) pg MCHC 34.1 (31.0-35.0) g/dl RDW 11.9 (11.0-16.0) % Plt Count 237 (160-400) X10*3/uL MPV 10.3 (9.4-12.3) fL Immature Gran % (Auto) 0.3 (0.0-0.4) % Neut % (Auto) 68.1 (45-73) % Lymph % (Auto) 25.9 (20-40) % [place] % (Auto) 4.0 (2-11) % Eos % (Auto) 1.4 (0-4) % Baso % (Auto) 0.3 (0-2) % Lymph # (Auto) 1.8 (1.2-4.9) X10*3/uL [place] # (Auto) 0.3 (0.1-1.2) X10*3/uL Eos # (Auto) 0.1 (0.0-0.4) X10*3/uL Baso # (Auto) 0.0 (0.0-0.2) X10*3/uL Abs Immat Gran (auto) 0.02 (0.00-0.03) X10*3/uL Absolute Neuts (auto) 4.8 (2.0-8.3) X10*3/uL Absolute Nucleated RBC 0.000 (0.0-0.012) X10*3/uL Nucleated RBC % (auto) 0.0 (0.0-0.2) /100WBC Sodium 138 (135-145) mmol/L Potassium 4.2 (3.3-5.1) mmol/L Chloride 107 (96-108) mmol/L Carbon Dioxide 21 L (22-29) mmol/L Anion Gap 14 (12-20) BUN 9 (9-16) mg/dL Creatinine 0.75 (0.5-1.4) mg/dL Estim Creat Clear Calc 122.7 Estimated GFR > 60 Random Glucose 105 (60-115) mg/dL Calcium 9.5 D (8.4-10.2) mg/dL Total Bilirubin (0.0-1.0) mg/dL Direct Bilirubin (0.0-0.5) mg/dL AST (5-31) U/L ALT (0-31) U/L Alkaline Phosphatase (39-117) U/L Total Protein (6.5-8.0) g/dL Albumin (3.5-5.0) g/dL Lipase (8-78) U/L Beta HCG, Quant 2674 mIU/mL Blood Type B Positive 01/18/21 Range/Units 17:55 WBC (4.8-10.8) X10*3/uL RBC (4.20-5.50) X10*6/uL Hgb (12.0-16.0) g/dl Hct (37-47) % MCV (80-98) fL MCH (27.0-33.0) pg MCHC (31.0-35.0) g/dl RDW (11.0-16.0) % Plt Count (160-400) X10*3/uL MPV (9.4-12.3) fL Immature Gran % (Auto) (0.0-0.4) % Neut % (Auto) (45-73) % Lymph % (Auto) (20-40) % [place] % (Auto) (2-11) % Eos % (Auto) (0-4) % Baso % (Auto) (0-2) % Lymph # (Auto) (1.2-4.9) X10*3/uL [place] # (Auto) (0.1-1.2) X10*3/uL Eos # (Auto) (0.0-0.4) X10*3/uL Baso # (Auto) (0.0-0.2) X10*3/uL Abs Immat Gran (auto) (0.00-0.03) X10*3/uL Absolute Neuts (auto) (2.0-8.3) X10*3/uL Absolute Nucleated RBC (0.0-0.012) X10*3/uL Nucleated RBC % (auto) (0.0-0.2) /100WBC Sodium (135-145) mmol/L Potassium (3.3-5.1) mmol/L Chloride (96-108) mmol/L Carbon Dioxide (22-29) mmol/L Anion Gap (12-20) BUN (9-16) mg/dL Creatinine (0.5-1.4) mg/dL Estim Creat Clear Calc Estimated GFR Random Glucose (60-115) mg/dL Calcium (8.4-10.2) mg/dL Total Bilirubin 0.6 (0.0-1.0) mg/dL Direct Bilirubin 0.2 (0.0-0.5) mg/dL AST 18 (5-31) U/L ALT 28 (0-31) U/L Alkaline Phosphatase 66 (39-117) U/L Total Protein 7.4 (6.5-8.0) g/dL Albumin 4.5 (3.5-5.0) g/dL Lipase 44 (8-78) U/L Beta HCG, Quant mIU/mL Blood Type Procedures Perimortem Number of Weeks : 6 weeks by US on 01/10 Discharge Plan Discharge Clinical Impression: Threatened Patient Disposition: Home, Self-Care Instructions: Threatened Miscarriage (ED) Additional Instructions: return to ED for any worsening symptoms or concerns please follow up with Susan [place] and repeat hormone level in 2 days Prescriptions: No Action prednisone 20 mg tablet 40 mg PO DAILY Qty: 8 RF: 0 prednisone 20 mg tablet 40 mg PO DAILY 4 Days Qty: 8 RF: 0 albuterol sulfate [Ventolin HFA] 90 mcg/actuation HFA aerosol inhaler 2 puff inhalation Q4-6H PRN (Reason: shortness of breath or wheezing) Qty: 8 RF: 0 azithromycin 250 mg tablet See Rx Instructions PO .COMPLEX 5 Days Qty: 6 RF: 0 Mirena 20 mcg/24 hours (6 yrs) 52 mg intrauterine device intrauterine RF: 0 Stand Alone Forms: Work/School Release
[2021-01-18 17:25] VITALS: BP 131/74; PULSE 88; RESP 17; TEMP 36.8; O2SAT 97
[2021-01-18 18:00] LABS: MANUAL DIFF FLAG NO
[2021-01-18 18:16] LABS: Anion Gap 14 (12-20); Blood Urea Nitrogen 9 mg/dL (9-16); Calcium 9.5 mg/dL (8.4-10.2); Carbon Dioxide 21 mmol/L (22-29); Chloride 107 mmol/L (96-108); Creatinine Clr Calc Pharmacy 122.7; Estimated Glomerular Filt Rate > 60; Glucose Random 105 mg/dL (60-115); Potassium 4.2 mmol/L (3.3-5.1); Sodium 138 mmol/L (135-145)
[2021-01-18 18:17] LABS: Alanine Aminotransferase 28 U/L (0-31); Albumin Level 4.5 g/dL (3.5-5.0); Alkaline Phosphatase 66 U/L (39-117); Aspartate Amino Transferase 18 U/L (5-31); Bilirubin Direct 0.2 mg/dL (0.0-0.5); Bilirubin Total 0.6 mg/dL (0.0-1.0); Lipase 44 U/L (8-78); Total Protein 7.4 g/dL (6.5-8.0)
[2021-01-18 18:22] LABS: Basophils Percent Auto 0.3 % (0-2); Eosinophils Absolute Auto 0.1 X10*3/uL (0.0-0.4); Eosinophils Percent Auto 1.4 % (0-4); Hematocrit 40.5 % (37-47); Hemoglobin 13.8 g/dl (12.0-16.0); Imm Gran Abs Auto 0.02 X10*3/uL (0.00-0.03); Imm Gran Pct Auto 0.3 % (0.0-0.4); Lymphocytes Absolute Auto 1.8 X10*3/uL (1.2-4.9); Lymphocytes Percent Auto 25.9 % (20-40); Mean Corpuscular HGB Conc 34.1 g/dl (31.0-35.0); Mean Corpuscular Hemoglobin 30.8 pg (27.0-33.0); Mean Corpuscular Volume 90.4 fL (80-98); Mean Platelet Volume 10.3 fL (9.4-12.3); Monocytes Absolute Auto 0.3 X10*3/uL (0.1-1.2); Neutrophils Absolute Auto 4.8 X10*3/uL (2.0-8.3); Neutrophils Percent Auto 68.1 % (45-73); Platelet Count 237 X10*3/uL (160-400); Red Blood Count 4.48 X10*6/uL (4.20-5.50); Red Cell Distribution Width 11.9 % (11.0-16.0)
[2021-01-18 18:23] LABS: HCG Quantitative 2674 mIU/mL
--- NOTE | 2021-01-18 19:19 | PC.NURSE ---
Patient sitting up at side of bed. Child at bedside. Tearful, reports I'm having a miscarriage . Offered pads and support. Does not want anything at this time.
--- NOTE | 2021-01-18 20:12 | PM.GYNCN ---
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 Patient presented on 01/10 to the emergency room where hCG quantitative was 4960. Ultrasound showed the followin. Single intrauterine gestational sac with ultrasound gestational age of? 5 weeks 4 days +/- 4 days. No pole seen, likely associated with the early stage of . 2. Estimated date of delivery is 09/08/2021 +/- 4 days. 3. Likely tiny subchorionic hemorrhage. The patient presented today with some cramping and spotting hCG dropped to 2674, pelvic exam per Dr. Deleon showed no bleeding and closed cervix please repeat ultrasound showed the followin. Single intrauterine gestation with ultrasound gestational age of? 6 weeks 1 day +/- 4 days. Since the prior study 01/10/2021, there has been 4 days less than expected interval growth. The absence of an embryo with a heart beat 7-10 days after a scan that showed a gestational sac with a yolk sac (01/10/2021) is suspicious but not diagnostic of early failure. Consider additional follow-up ultrasound on 01/25/2021 for later as clinically indicated. 2. Estimated date of delivery is 09/12/2021 +/- 4 days. 3. No maternal adnexal mass or pelvic ascites. cc:: CC: GLUE COOK - Review of Systems Review of Systems ROS Unobtainable: All systems reviewed & are unremarkable except as noted in HPI and below Cardiovascular: Denies Palpatations, Loss of consciousness or Chest pain Respiratory: Denies Cough, Wheezing or Shortness of breath Musculoskeletal: Denies Low back pain Gastrointestinal: Denies Heartburn, Constipation, Diarrhea, Nausea or Vomiting Genitourinary: Denies Pain with urination, Burning with urination or Urinary frequency Neurological: Denies Migranes Psychological: Denies Depression OB PMFSH Past Medical History Medical History Asthma Bronchitis Pulmonary nodule, right Surgical History Surgical History History of tonsillectomy Hx of adenoidectomy Hx of section Social History Social History Alcohol intake: never Patient Tobacco Use Status: Never used Tobacco Advance Directives: No Advance Directives Information Provided: No Patient : Yes Meds Allergies Allergy/AdvReac Type Severity Reaction Status Date / Time oxycodone [OXYCODONE] Allergy Unknown ITCHING, Verified 11/16/20 11:00 NAUSEA, HOT Home Medications Medication Instructions Recorded Confirmed Last Taken Type levonorgestrel 20 mcg/24 hours (7 INTRAUTERINE 11/16/20 Unknown History yrs) 52 mg intrauterine device (Mirena) [employer] FABRICATOR Physical Exam Vitals Vital signs: Temp Pulse Resp BP Pulse Ox 98.3 F 88 17 131/74 97 01/18/21 17:25 01/18/21 17:25 01/18/21 17:25 01/18/21 17:25 01/18/21 17:25 Body Mass Index 46.8 Narrative: Per Dr. Deleon exam showed no bleeding cervix is closed Constitutional General Appearance: Healthy appearing, Well-nourished and Well-developed Psychiatric Mood and Affect: active and alert, normal mood and normal affect Skin Appearance: No rashes and No lesions Lungs Respiratory Effort: No intercostal retractions Auscultation: Clear to auscultation Cardiovascular Auscultation: RRR Abdomen Auscultation/Inspection/Palpation: Normal bowel sounds, Soft, Non-distended and No tenderness [employer] F[employer]ICATOR - Results Labs CBC & Chem 7: 01/18/21 17:55 01/18/21 17:55 Labs: Short CBC 01/18/21 Range/Units 17:55 WBC 7.0 (4.8-10.8) X10*3/uL Hgb 13.8 (12.0-16.0) g/dl Hct 40.5 (37-47) % Plt Count 237 (160-400) X10*3/uL BMP 01/18/21 17:55 Sodium 138 Potassium 4.2 Chloride 107 Carbon Dioxide 21 L BUN 9 Creatinine 0.75 Calcium 9.5 D Liver Function 01/18/21 Range/Units 17:55 Total Bilirubin 0.6 (0.0-1.0) mg/dL Direct Bilirubin 0.2 (0.0-0.5) mg/dL AST 18 (5-31) U/L ALT 28 (0-31) U/L Alkaline Phosphatase 66 (39-117) U/L Albumin 4.5 (3.5-5.0) g/dL Assessment and Plan (1) Threatened : Status: Acute SAB and ectopic warnings to be given to the patient, she is to call or go to emergency room in case of heavy bleeding or pelvic pain or cramping, Otherwise follow-up in the office, will repeat hCG and ultrasound 11 days or more from the 01/10 ultrasound which showed an empty gestational sac with absence of embryo and heart rate but presence of yolk sac per Criteria for transvaginal ultrasound diagnosis of early failure , will check the results and treat accordingly
== END 2021-01-18 20:21 | disposition home or self-care (01) ==
PROVIDERS: Emergency Provider Emergency Medicine
DX: O20.0 Threatened abortion (principal); O09.291 Supervision of pregnancy with other poor reproductive or obstetric history, first trimester; O99.511 Diseases of the respiratory system complicating pregnancy, first trimester; J45.909 Unspecified asthma, uncomplicated; Z3A.01 Less than 8 weeks gestation of pregnancy
CPT/HCPCS: 36415; 76801; 80048; 80076; 83690; 84702; 85025; 86900; 86901; 99284

== ENCOUNTER 2021-02-17 16:46 | Emergency (ER) | payer OTHER, SELFPAY ==
--- NOTE | ~2021-02-17 | XR_ITS ---
EXAMINATION: XR KNEE, LEFT CLINICAL INFORMATION: Left knee pain status post fall. COMPARISON: None TECHNIQUE: Four views of the left knee. FINDINGS: Bones and soft tissues are normal. No fracture or joint effusion. Alignment is anatomic. Joint spaces are well maintained. No abnormal soft tissue calcification. XR/XR knee LT 2V IMPRESSION: Unremarkable left knee.
[2021-02-17 16:57] VITALS: BP 122/62; PULSE 92; RESP 18; TEMP 36.4; O2SAT 98; BMI 46.8
--- NOTE | 2021-02-17 18:21 | ED.LOWEXIN ---
HPI - Extremity Injury (Lower) General Chief Complaint: Extremity Injury, Lower Stated Complaint: left knee pain Time Seen by Provider: 02/17/21 18:21 Source: patient Mode of arrival: ambulatory Limitations: no limitations History of Present Illness HPI Narrative: 30-year-old female with history of mild intermittent asthma who presents to the ER with 1 week of left knee pain after she injured it while playing basketball. She reports she landed on it wrong and it went outward. She heard a pop. She has been unable to fully ambulate on it since then. She reports pain with bending and straightening. She has been taking ibuprofen with minimal relief. She has no ankle or hip injury. No history of the injuries in the past. It is not red or hot but is swollen, this has been improving slightly with ice. MD complaint: knee injury Onset (ago): week(s) (1) Injury: Left: knee Type of Injury: eversion Place: street/outdoors Severity: severe Severity scale (1-10): 8 Relieving factors: NSAID and cold therapy Exacerbating factors: weight bearing, movement and palpation Context: jumping Associated symptoms: snap/pop sensation, swelling and able to partially bear weight Other symptoms: none Treatments prior to arrival: cold therapy Related Data Home Medications Medication Instructions Recorded Confirmed levonorgestrel 20 mcg/24 hours (7 INTRAUTERINE 11/16/20 yrs) 52 mg intrauterine device (Mirena) Previous Rx's Medication Instructions Recorded Ventolin HFA 90 mcg/actuation 2 puff INHALATION Q4-6H PRN #8 g NS 01/06/20 aerosol inhaler (albuterol sulfate) prednisone 20 mg tablet 40 mg PO DAILY #8 tab 07/13/20 azithromycin 250 mg tablet See Rx Instructions PO .COMPLEX 5 07/17/20 Days #6 tab prednisone 20 mg tablet 40 mg PO DAILY 4 Days #8 tab 10/22/20 ibuprofen 600 mg tablet 600 mg PO Q8H PRN #20 tab 02/17/21 tramadol 50 mg tablet 50 mg PO Q6H PRN #10 tab 02/17/21 Allergies Allergy/AdvReac Type Severity Reaction Status Date / Time oxycodone [OXYCODONE] Allergy Unknown ITCHING, Verified 02/17/21 16:57 NAUSEA, HOT Review of Systems Review of Systems: Constitutional: No Fever, No Chills Cardiovascular: No Chest Pain, No SOB Gastrointestinal: No Nausea, No Vomiting Musculoskeletal: + joint pain, No Myalgias Skin: No Skin Lesions, No rash Neuro: No Weakness, No Numbness Psych: No Anxiety/Panic, No Depression Heme/Lymph: No Bruising PMFSH Past Medical History Medical History Asthma Bronchitis Pulmonary nodule, right Surgical History History of tonsillectomy Hx of adenoidectomy Hx of section Social History Social History Alcohol intake: never Patient Tobacco Use Status: Never used Tobacco Advance Directives: No Advance Directives Information Provided: No Patient : No Physical Exam Vital Signs: Vital Signs: Last Vital Signs Temp 97.6 F 02/17/21 16:57 Pulse 92 02/17/21 16:57 Resp 18 02/17/21 16:57 BP 122/62 02/17/21 16:57 Pulse Ox 98 02/17/21 16:57 Body Mass Index 46.8 Appearance: Alert. Oriented X3. No acute distress. HEENT: normal inspection CVS: Normal heart rate and rhythm. Pulses normal. Respiratory: No respiratory distress. Skin: Skin warm and dry. Normal skin color. Normal skin turgor. No rashes. Extremities: left knee with moderate generalized swelling, unable to flex past 30 degrees due to pain. medial joint line tenderness. no erythema or warmth. NV intact distally. Neuro: Oriented X 3. No motor deficit. No sensory deficit. Limping gait. Course Course Course Narrative: 30-year-old female presenting with left knee pain for the last 1 week after she had an injury while playing basketball. She has been limping around sense with limited range of motion and only partially able to bear weight. She has intermittent giving out of the knee. She has been taking ibuprofen with minimal relief. X-ray today is normal. She has limited range of motion due to pain and some swelling. No erythema or warmth, no concern for septic joint. There is a concern for ligamentous injury, unable to assess for joint laxity given patient's pain and limited range of motion. Will provide crutches, NSAID, pain control and have her follow-up with Orthopedics early next week. Patient agreeable with plan and is stable for discharge home. Critical Care Time Critical Care Time Critical Care Time: No Discharge Plan Discharge Clinical Impression: Acute knee pain Qualifiers: Laterality: left Qualified Code(s): M25.562 - Pain in left knee Patient Disposition: Home, Self-Care Instructions: Knee Pain (ED) Additional Instructions: Your x-ray today was normal. Rest you knee and elevate your leg when possible. Recommend IRVING wrap for support and compression. Use ice several times per day. You may bear weight as tolerated. If pain is too severe, use crutches until better. Take Motrin and/or Tylenol as needed for pain. Follow up with Orthopedics next week for further evaluation of a possible ligament injury. Prescriptions: New ibuprofen 600 mg tablet 600 mg PO Q8H PRN (Reason: pain) Qty: 20 RF: 0 tramadol 50 mg tablet 50 mg PO Q6H PRN (Reason: pain) Qty: 10 RF: 0 No Action prednisone 20 mg tablet 40 mg PO DAILY Qty: 8 RF: 0 prednisone 20 mg tablet 40 mg PO DAILY 4 Days Qty: 8 RF: 0 albuterol sulfate [Ventolin HFA] 90 mcg/actuation HFA aerosol inhaler 2 puff inhalation Q4-6H PRN (Reason: shortness of breath or wheezing) Qty: 8 RF: 0 azithromycin 250 mg tablet See Rx Instructions PO .COMPLEX 5 Days Qty: 6 RF: 0 Mirena 20 mcg/24 hours (6 yrs) 52 mg intrauterine device intrauterine RF: 0 Referrals: Ash Alicea PA-C [Physician Material Yard Clerk] - 2 days (left knee pain s/p basketball injury, concern for ligamentous injury) Stand Alone Forms: Work/School Release Interventions: ED Discharge Assessment Last Done: 02/17/21 19:17
[2021-02-17] MEDS: traMADoL HCL 50 MG TABLET PO (19:01)
[2021-02-17] MEDS: Ibuprofen 600 MG TABLET PO (19:01)
== END 2021-02-17 19:19 | disposition home or self-care (01) ==
PROVIDERS: Emergency Provider Internal Medicine
DX: M25.562 Pain in left knee (principal); Z79.899 Other long term (current) drug therapy
CPT/HCPCS: 73560; 99283

== ENCOUNTER 2021-04-28 13:04 | Emergency (ER) | payer OTHER, SELFPAY ==
--- NOTE | ~2021-04-28 | XR_ITS ---
EXAMINATION: XR KNEE, LEFT CLINICAL INFORMATION: Knee pain status post buckling COMPARISON: None TECHNIQUE: 5 views of the left knee. FINDINGS: Bones and soft tissues are normal. No fracture or joint effusion. Alignment is anatomic. Joint spaces are well maintained. No abnormal soft tissue calcification. XR/XR knee LT 4V IMPRESSION: Normal left knee.
[2021-04-28 13:23] VITALS: BP 116/75; BP 123/84; PULSE 103; RESP 18; TEMP 36.9; O2SAT 100; O2SAT 99; BMI 43.5
[2021-04-28] MEDS: Acetaminophen 325 MG TABLET 650 MG PO (13:37)
[2021-04-28] MEDS: Ketorolac Tromethamine 30 MG/ML VIAL IM (13:37)
--- NOTE | 2021-04-28 14:02 | ED_ITS ---
HPI - General Adult General Chief complaint: Extremity Injury, Lower Stated complaint: KNEE PAIN Time Seen by Provider: 04/28/21 13:11 Source: patient Mode of arrival: ambulatory History of Present Illness HPI narrative: 30-year-old female with a past medical history of asthma, bronchitis, prior left injury, presenting to the ED complaining of left knee pain s/p knee giving out after getting up from bed last night. Reports fell to ground, hit head on bed, denies LOC. Was bearing weight last night after incident. Reports associated tingling. Denies numbness, weakness, fever, chills Onset (ago): day(s) Related Data Home Medications Medication Instructions Recorded Confirmed levonorgestrel 20 mcg/24 hours (7 INTRAUTERINE 11/16/20 yrs) 52 mg intrauterine device (Mirena) Previous Rx's Medication Instructions Recorded Ventolin HFA 90 mcg/actuation 2 puff INHALATION Q4-6H PRN #8 g NS 01/06/20 aerosol inhaler (albuterol sulfate) prednisone 20 mg tablet 40 mg PO DAILY #8 tab 07/13/20 azithromycin 250 mg tablet See Rx Instructions PO .COMPLEX 5 07/17/20 Days #6 tab prednisone 20 mg tablet 40 mg PO DAILY 4 Days #8 tab 10/22/20 ibuprofen 600 mg tablet 600 mg PO Q8H PRN #20 tab 02/17/21 tramadol 50 mg tablet 50 mg PO Q6H PRN #10 tab 02/17/21 Allergies Allergy/AdvReac Type Severity Reaction Status Date / Time oxycodone [OXYCODONE] Allergy Unknown ITCHING, Verified 02/17/21 16:57 NAUSEA, HOT Review of Systems Review of Systems: Constitutional: No Fever, No Chills ENT/Mouth: No Ear Pain, No Nasal Congestion, No sore throat Cardiovascular: No Chest Pain, No SOB Respiratory: No Cough Gastrointestinal: No Nausea, No Vomiting, No Diarrhea, No Constipation, No Abdominal pain Genitourinary: No Dysuria, No Urinary Frequency, No Flank Pain Musculoskeletal: + joint pain, No Myalgias, No Joint Swelling Skin: No Skin Lesions, No rash Neuro: No Weakness, No Numbness, No Paresthesias Yes all other systems are reviewed and are negative [facility] Past Medical History Attestation statement: The following information was validated with the patient. Medical History Asthma Bronchitis Pulmonary nodule, right Surgical History History of tonsillectomy Hx of adenoidectomy Hx of section Social History Social History Alcohol intake: current Alcohol intake frequency: a few times a month Patient Tobacco Use Status: Never used Tobacco Use of substances other than those prescribed or required for medical reasons: Yes Substance Use Type: Marijuana Substance Use Frequency: Daily Last Used Substance: Days (ago) Advance Directives: No Advance Directives Information Provided: No Physical Exam Vital Signs: Vital Signs: Last Vital Signs Temp 98.5 F 04/28/21 13:23 Pulse 103 H 04/28/21 13:23 Resp 18 04/28/21 13:23 BP 116/75 04/28/21 13:23 Pulse Ox 99 04/28/21 13:23 BMI result Body Mass Index 43.5 Const: Other: in pain General: cooperative, healthy appearing, no acute distress and anxious Nutritional Appearance: obese Orientation/consciousness: patient oriented x3 Limitations: no limitations HENMT: Head: Yes normal to inspection and Yes atraumatic Ears: hearing grossly normal bilaterally General nose exam: Normal external nose present Face and sinus: Yes normal facial exam Eyes: General: appearance normal, both eyes and all related structures EOM: EOMs intact bilaterally Neck: Neck: Yes normal visual inspection and Yes no meningeal signs Resp: Effort & Inspection: normal respiratory effort and no respiratory distress Auscultation: clear to auscultation bilaterally Cardio: Rate: regular rate Heart sounds: S1 normal heart sound present and S2 normal heart sound present Peripheral pulses: dorsalis pedis present GI: Inspection: Yes normal to inspection Palpation (GI): Soft to palpation, nontender and no guarding Skin: Rashes: no rashes Wounds: no wounds Neuro: General: patient oriented x3 and no meningeal signs Gait exam (Neuro): Normal gait present Extrem: Other: Left knee without appreciable deformity, no swelling, no erythema or warmth. Diffusely tender to palpation. Decreased flexion and extension secondary to pain. Neurovascularly intact distally Pelvis stable General: Yes normal to inspection Course Course Course Narrative: XR knee LT 4V IMPRESSION: Normal left knee. >> patient placed in knee immobilizer for comfort/stability. Results discussed. Plan to DC home with orthopedic follow-up Medical Decision Making MDM Narrative Medical decision making narrative: 30-year-old female with a past medical history of asthma, bronchitis, prior left injury, presenting to the ED complaining of left knee pain s/p knee giving out after getting up from bed last night. On exam tachycardic, in pain, anxious, physical exam as above. Concern for tendon/ligamental or meniscal injury vs MSK pain. Low concern for fracture/dislocation. Unlikely septic joint/arthritis Plan: X-ray, pain control Medical Records Medical records reviewed: Yes I reviewed the patient's medical records. Lab Data Lab results reviewed: Yes I reviewed the patient's lab results. Discharge Plan Discharge Clinical Impression: Acute knee pain Patient Disposition: Home, Self-Care Instructions: Knee Pain (ED) Additional Instructions: Your knee x-ray is unremarkable. Likely have a tendon or ligamental or possibly meniscal tear/injury You only way to see this is within MRI. Wear knee immobilizer at home for comfort and stability. Bear weight as tolerated. Ice, elevate, take Tylenol and Motrin for pain/swelling. Please follow-up with her doctor and Orthopedics Prescriptions: No Action prednisone 20 mg tablet 40 mg PO DAILY Qty: 8 RF: 0 prednisone 20 mg tablet 40 mg PO DAILY 4 Days Qty: 8 RF: 0 albuterol sulfate [Ventolin HFA] 90 mcg/actuation HFA aerosol inhaler 2 puff inhalation Q4-6H PRN (Reason: shortness of breath or wheezing) Qty: 8 RF: 0 ibuprofen 600 mg tablet 600 mg PO Q8H PRN (Reason: pain) Qty: 20 RF: 0 tramadol 50 mg tablet 50 mg PO Q6H PRN (Reason: pain) Qty: 10 RF: 0 azithromycin 250 mg tablet See Rx Instructions PO .COMPLEX 5 Days Qty: 6 RF: 0 Mirena 20 mcg/24 hours (6 yrs) 52 mg intrauterine device intrauterine RF: 0 Referrals: Nora Longoria PA-C [Physician Hearing Aid Assembly Supervisor] - 1 week
== END 2021-04-29 14:58 | disposition home or self-care (01) ==
PROVIDERS: Emergency Provider Emergency Medicine
DX: M25.562 Pain in left knee (principal); R00.0 Tachycardia, unspecified; F12.90 Cannabis use, unspecified, uncomplicated
CPT/HCPCS: 73564; 96372; 99284; J1885

== ENCOUNTER 2021-05-24 07:35 | Outpatient (REF) | payer OTHER, SELFPAY | END 2021-05-24 07:36 | disposition home or self-care (01) | LOC: HO.HOSX 07:35 | PROVIDERS: Visit Provider Physician Assistant | DX: Z13.89 Encounter for screening for other disorder (principal) ==

== ENCOUNTER → 2021-06-21 14:57 | Outpatient (BNVA) | payer OTHER, SELFPAY | PROVIDERS: Visit Provider Physician Assistant | DX: Z01.818 Encounter for other preprocedural examination (principal); S83.242A Other tear of medial meniscus, current injury, left knee, initial encounter; S83.512A Sprain of anterior cruciate ligament of left knee, initial encounter | CPT/HCPCS: 99202 ==

== ENCOUNTER 2021-06-27 11:32 | Day surgery (SDC) | payer OTHER, SELFPAY ==
--- NOTE | 2021-06-26 09:05 | P.CONAN_ITS ---
Documented by User: Bessy Omer NP 06/26/21 09:06 HPI - Anesthesia Eval Consult details Narrative: 30yo F for Left Knee Arthroscopy possible ACL reconstrustion [facility] Active Problems Active Problems: All Active Problems (Updated 06/21/21 @ 19:15 by Ash Alicea PA-C) Tears of meniscus and ACL of left knee (Acute) Tear of medial meniscus of left knee (Acute) Encounter for IUD removal (Acute) Pulmonary nodule, right (Acute) Bronchitis (Acute) Asthma (Acute) Past Medical History Medical History Asthma Bronchitis Pulmonary nodule, right Surgical History Surgical History History of tonsillectomy Hx of adenoidectomy Hx of section Social History Social History (Updated 06/21/21 @ 15:16 by Kirti Shah CMA) Alcohol intake: current Alcohol intake frequency: a few times a month Patient Tobacco Use Status: Former Tobacco user Quit Date: 3 years ago Substance Use Type: Marijuana Current occupational status: employed 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 [employer] Meds Allergies Allergy/AdvReac Type Severity Reaction Status Date / Time oxycodone [OXYCODONE] Allergy Unknown ITCHING, Verified 06/21/21 15:14 NAUSEA, HOT Exam Exam Date and Time: June 26, [id number] Pertinent Lab Results Pertinent Lab Results: Laboratory Tests 01/18/21 01/18/21 17:55 17:55 WBC 7.0 Hgb 13.8 Hct 40.5 Plt Count 237 Sodium 138 Potassium 4.2 Chloride 107 Carbon Dioxide 21 L BUN 9 Creatinine 0.75 Assessment and Plan Assessment Anesthesia Assessment: Chart Reviewed Documented by User: Isaac Nascimento MD 06/27/21 17:04 [facility] Past Medical History Medical History Asthma Bronchitis Pulmonary nodule, right Family History Family history of problems with anesthesia: No Surgical History Surgical History History of tonsillectomy Hx of adenoidectomy Hx of section History of Problems with Anesthesia: No Social History Social History (Updated 06/21/21 @ 15:16 by Kirti Shah CMA) Alcohol intake: current Alcohol intake frequency: a few times a month Patient Tobacco Use Status: Former Tobacco user Quit Date: 3 years ago Substance Use Type: Marijuana Current occupational status: employed 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 handed Meds Allergies Allergy/AdvReac Type Severity Reaction Status Date / Time oxycodone [OXYCODONE] Allergy Unknown ITCHING, Verified 06/21/21 15:14 NAUSEA, HOT Exam Airway Mallampati Class: II TM Dist: >3cm Neck ROM: Full Loose/Missing/Broken Teeth: Yes Heart: rrr Lungs: bl breath sounds Assessment and Plan Assessment Anesthesia Assessment: Anesthesia Plan Discussed Final Anesthetic Review Family History of Problems with Anesthesia: No History of Problems with Anesthesia: No NPO: Yes ASA Class: III Final Preanesthetic Review: Meds/Allgs Chart Reviewed, Consent Obtained/Reviewed and Anes Risks/Benef Reviewed Patient Risk: Intermediate Procedure Risk: Intermediate Anesthetic Plan Anesthetic Plan: GA and Regional Block Disposition: Standard PACU
[2021-06-27] VITALS (21 sets, daily range): BP systolic 115–147; BP diastolic 65–110; PULSE 65–99; RESP 14–22; TEMP 36.6–37; O2SAT 94–100; BMI 40.2
[2021-06-27 11:57] LABS: UPreg QC Valid YES; Urine Pregnancy NEGATIVE (NEGATIVE)
[2021-06-27] MEDS: Lactated Ringers 1,000 ML 100 ML IVCONT (12:25)
--- NOTE | 2021-06-27 13:25 | MHC.SHP ---
Pre-Procedural Eval Section A Date of Service: 06/27/21 The patient is an INPATIENT: No Changes since office visit: Yes Patient answered all questions; No Cold of Flu in the past 2 weeks, No New Medical Problems and No Changes in Medication The History & Physical has been completed within 30 days and I have reviewed it.: Yes Section B Chief Complaint: tear of medial meniscus Allergies: Allergies Allergy/AdvReac Type Severity Reaction Status Date / Time oxycodone [OXYCODONE] Allergy Unknown ITCHING, Verified 06/21/21 15:14 NAUSEA, HOT Plan I have reviewed the history and physical and performed a pertinent physical examination on my patient. No changes have occurred unless specified.
--- NOTE | 2021-06-27 14:47 | P.BOP_ITS ---
Brief Operative Note Date of Service: 06/27/21 Pre-op diagnosis: Left knee partial ACL tear and bucket handle meniscus tear Post-op diagnosis: same Procedure: Medial meniscus repair Implants: [employer] meniscal repair fast-fix Flex x5 Surgeon: Jonathan Pepe MD Anesthesia: GETA and regional Was an Wallcovering Hanger used for this Procedure?: Yes Wallcovering Hanger: Nora Longoria Estimated blood loss (mL): 10 Tourniquet time (min): 45 IV fluids (mL): 1,000 Pathology: none sent Condition: stable Disposition: PACU
[2021-06-27] MEDS: fentaNYL citrate/PF 100 MCG/2 ML VIAL 50 MCG IVPUSH (14:55)
[2021-06-27] MEDS: fentaNYL citrate/PF 100 MCG/2 ML VIAL 25 MCG IVPUSH ×4 (14:55→15:20)
--- NOTE | 2021-06-27 14:55 | W.PM.OPN ---
Operative Note Operative Note Date of Service: 06/27/21 Narrative: Pre-op diagnosis: Left knee partial ACL tear and bucket handle meniscus tear Post-op diagnosis: same Procedure: Medial meniscus repair Implants: [employer] meniscal repair fast-fix Flex x5 Surgeon: Jonathan Pepe MD Anesthesia: GETA and regional Was an Lasting Room Machine Operator used for this Procedure?: Yes Lasting Room Machine Operator: Nora Longoria Estimated blood loss (mL): 10 Tourniquet time (min): 45 IV fluids (mL): 1,000 Pathology: none sent Condition: stable Disposition: PACU Procedure in detail: The patient was brought to the operating room placed supine on the arthroscopic table and prepped and draped in standard sterile fashion. A time-out was called to identify proper site proper procedure proper surgeon and IV antibiotics per weight were administered. I began by assessing her ACL and her ROM> She had a 10 deg loss of terminal extension with a NEGATIVE pivot shift. I then exsanguinated the limb and insufflated tourniquet to 300 mm Hg. Then made a standard anterolateral stab incision. knee was insufflated with water and 30 degree arthroscope was placed. There was grade 1 fibrillations of the patella but overall suprapatellar pouch was plane and the gutters were clean. I descended into the medial compartment where I made my medial portal under direct visualization. There was displaced bucket handle tear of the medial meniscus that was displaced into the notch. This was off the capaule medially. Cartilage surfaces were intact. The ACL was grossly intact. I then reduced the meniscus and placed 5 [employer]hew Fast-fix flex anchors through the meniscal body and posterior horn. Priot to this I rasped the posterior plateau to bleeding bone. I was able to repaior the meniscus securely and was satisfied that it was stable using a probe and with deep flexion. I then turned my attention to the ACL which was closely examined. There was a partial tear of the ACL with maintained vascularity and a persistent negative pivot shift. The AM bundle appeared completely intact. The decision was made, given her rotational stability, not to reconstruct the ACL. I examined the lateral compartment also was without the need for intervention. I then removed all instrumentation and closed the portals with skin glue. 25 mL of 2% Marcaine with epinephrine was injected into the joint and the surrounding soft tissues. She was placed in a hinged knee brace locked in extension. Prior to this she was placed in sterile dressing. She was extubated and brought recovery room in stable condition. There were no known complications.
[2021-06-27] MEDS: Albuterol Sulfate (0.083%) 2.5 MG/3 ML VIAL.NEB INHALE (15:37)
[2021-06-27] MEDS: HYDROmorphone HCl 0.5 MG/0.5 ML SYRINGE 0.25 MG IVPUSH (17:10)
== END 2021-06-27 18:40 | disposition home or self-care (01) ==
LOC: HO.SSS 11:32
PROVIDERS: Nurse Practitioner; Visit Provider Orthopaedic Surgery
PROC: (CPT 29870; principal; 2021-06-27 13:20)
DX: S83.212A Bucket-handle tear of medial meniscus, current injury, left knee, initial encounter (principal); M25.462 Effusion, left knee; W18.39XA Other fall on same level, initial encounter; Y93.67 Activity, basketball; Y92.9 Unspecified place or not applicable; Y99.8 Other external cause status; J40 Bronchitis, not specified as acute or chronic; R91.1 Solitary pulmonary nodule; Z79.899 Other long term (current) drug therapy; Z88.8 Allergy status to other drugs, medicaments and biological substances; Z87.891 Personal history of nicotine dependence
CPT/HCPCS: 29881; 81025; 94640; C1713; J0131; J0690; J1100; J1170; J2250; J2405; J2550; J3010

== ENCOUNTER 2021-07-02 07:29 | Outpatient (RCR) | payer OTHER, SELFPAY | END 2021-08-07 11:56 | disposition home or self-care (01) | LOC: HO.PT 07:29 | PROVIDERS: Visit Provider Physician Assistant | DX: Z98.890 Other specified postprocedural states (principal) | CPT/HCPCS: 97161 ==

== ENCOUNTER → 2021-07-02 12:02 | Outpatient (BNVA) | payer OTHER, SELFPAY | PROVIDERS: PCP Internal Medicine; Visit Provider Physician Assistant | DX: S83.242D Other tear of medial meniscus, current injury, left knee, subsequent encounter (principal) | CPT/HCPCS: 99212 ==

== ENCOUNTER 2021-07-08 12:34 | Emergency (ER) | payer OTHER, SELFPAY ==
[2021-07-08 12:51] VITALS: BP 125/81; PULSE 101; RESP 18; TEMP 37; O2SAT 97; BMI 41.5
--- NOTE | 2021-07-08 14:16 | ED_ITS ---
HPI - Wound/Laceration General Chief Complaint: Wound/Laceration Stated Complaint: surgery incision opened Time Seen by Provider: 07/08/21 12:50 Source: patient Mode of arrival: ambulatory Limitations: no limitations History of Present Illness HPI narrative: 30-year-old female here with reports of Steri-Strips falling off of her surgical incision site. Patient tells me she had a left knee arthroscopy on June 27 here at [facility]. She had some Steri-Strips that were applied and today when removing her pants 1 of the Steri-Strips fell off and the other 1 is about to fall off from her arthroscopy sites. No fevers, chills, redness, drainage or odor. Patient tells me she has not been using her crutches Related Data Previous Rx's Medication Instructions Recorded Ventolin HFA 90 mcg/actuation 2 puff INHALATION Q4-6H PRN #8 g NS 01/06/20 aerosol inhaler (albuterol sulfate) ibuprofen 600 mg tablet 600 mg PO Q8H PRN #20 tab 02/17/21 acetaminophen 500 mg tablet 500 mg PO Q6H PRN #20 tab 04/28/21 (Tylenol Extra Strength) naproxen 500 mg tablet 500 mg PO BID PRN 10 Days #20 tab 04/28/21 hydrocodone 5 mg-acetaminophen 325 1 tab PO Q8H PRN 7 Days #21 tab 06/27/21 mg tablet Allergies Allergy/AdvReac Type Severity Reaction Status Date / Time oxycodone [OXYCODONE] Allergy Unknown ITCHING, Verified 07/08/21 12:56 NAUSEA, HOT Review of Systems Review of Systems: Yes all other systems are reviewed and are negative Constitutional: Constitutional: Reports no additional constitutional complaints, Denies body ache(s), Denies chills, Denies fever(s), Denies headache(s) and Denies weakness Eyes: Eyes: Reports no additional eye complaints and Denies change in vision ENT: Reports system reviewed and no additional complaints, except as documented, Denies dizziness, Denies headache(s), Denies nasal congestion, Denies nasal discharge and Denies neck pain Cardiovascular: Cardiovascular: Reports no additional cardiovascular complaints, Denies chest pain, Denies leg edema and Denies dyspnea Respiratory: Respiratory: Reports no additional respiratory complaints, Denies cough and Denies dyspnea Gastrointestinal: Gastrointestinal: Reports no additional gastrointestinal complaints, Denies abdominal pain, Denies diarrhea, Denies nausea and Denies vomiting Genitourinary: Genitourinary: Reports no additional female genitourinary complaints and Denies urinary incontinence Musculoskeletal: Musculoskeletal: Reports no additional musculoskeletal complaints, Denies back pain, Denies arthralgias, Denies joint swelling, Denies neck pain, Denies numbness and Denies tingling Integumentary/Breasts: Skin/Breast: Reports system reviewed and no additional complaints, except as docu and Denies rash Neurologic: Reports system reviewed and no additional complaints, except as documented, Denies Abnormal speech present, Denies dizziness, Denies headache(s), Denies numbness, Denies tingling and Denies weakness PMFSH Past Medical History Attestation statement: The following information was validated with the patient. Source: old records reviewed and nursing notes reviewed Medical History Asthma Bronchitis Pulmonary nodule, right Surgical History History of tonsillectomy Hx of adenoidectomy Hx of section Social History Social History Alcohol intake: current Alcohol intake frequency: a few times a month Patient Tobacco Use Status: Former Tobacco user Quit Date: 3 years ago Substance Use Type: Marijuana Advance Directives: No Advance Directives Information Provided: Yes Patient : No Current occupational status: employed 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 handed Physical Exam Vital Signs: Vital Signs: Last Vital Signs Temp 98.6 F 07/08/21 12:51 Pulse 101 H 07/08/21 12:51 Resp 18 07/08/21 12:51 BP 125/81 07/08/21 12:51 Pulse Ox 97 07/08/21 12:51 BMI result Body Mass Index 41.5 Const: General: cooperative, healthy appearing, comfortable and no acute distress Orientation/consciousness: patient oriented x3 Limitations: no limitations HEENT: Head: Yes normal to inspection Ears: hearing grossly normal bilaterally General nose exam: Normal external nose present Face and sinus: Yes normal facial exam Mouth: Normal oral and palatal mucosa present Throat: Yes posterior oropharynx normal Eyes: General: appearance normal, both eyes and all related structures Pupils: Equal, round and reactive pupils present Neck: Neck: Yes normal visual inspection Chest: Chest palpation & inspection: normal inspection of the chest Resp: Effort & Inspection: normal respiratory effort Auscultation: clear to auscultation bilaterally Cardio: Rate: regular rate Rhythm: regular rhythm Peripheral pulses: Peripheral pulses 2+ throughout GI: Inspection: Yes normal to inspection Palpation (GI): Soft to palpation and nontender Auscultation: normal bowel sounds Back/Spine/Pelvis: Thoracic/Lumbar Spine: thoracic and lumbar spine normal to inspection Skin: General skin exam: no rashes or lesions noted Neuro: General: patient oriented x3, no focal motor deficits and normal sensation to monofilament Cranial nerves: Yes Equal, round and reactive pupils present Cognition (Neuro): normal cognition Speech: No Abnormal speech present Gait exam (Neuro): Normal gait present Motor exam (neuro): 5/5 motor strength present throughout Extrem: Other: To the left anterior knee there are 2-1 cm incision sites noted. The more medial incision site has no Steri-Strips present. The lateral incision site has Steri-Strips which is partially falling off General: Yes normal to inspection Course Course Course Narrative: The Steri-Strips were removed. The site was cleansed. New Steri-Strips were applied. No signs of infection. Recommend patient continue with her plan to follow-up with Orthopedics and that she use her crutches for ambulation MDM - Wound/Laceration Medical Records Attestation: I reviewed the patient's medical records. Lab Data Attestation: I reviewed the patient's lab results. Discharge Plan Discharge Clinical Impression: Visit for wound check Patient Disposition: Home, Self-Care Instructions: Acute Wounds (DC) Additional Instructions: Follow-up with Orthopedics We applied new Steri-Strips Use your crutches Prescriptions: No Action albuterol sulfate [Ventolin HFA] 90 mcg/actuation HFA aerosol inhaler 2 puff inhalation Q4-6H PRN (Reason: shortness of breath or wheezing) Qty: 8 0RF ibuprofen 600 mg tablet 600 mg PO Q8H PRN (Reason: pain) Qty: 20 0RF acetaminophen [Tylenol Extra Strength] 500 mg tablet 500 mg PO Q6H PRN (Reason: pain or fever) Qty: 20 0RF naproxen 500 mg tablet 500 mg PO BID PRN (Reason: pain) 10 Days Qty: 20 0RF hydrocodone-acetaminophen 5-325 mg tablet 1 tab PO Q8H PRN (Reason: pain (scale score 4-6)) 7 Days Qty: 21 0RF Referrals: Jonathan Pepe MD [Physician] - 1 week (as scheduled ) Interventions: ED Discharge Assessment Last Done: 07/08/21 14:13 Discharge Date/Time: 07/08/21 14:13
== END 2021-07-08 14:13 | disposition home or self-care (01) ==
PROVIDERS: Emergency Provider Emergency Medicine; PCP Internal Medicine
DX: Z48.00 Encounter for change or removal of nonsurgical wound dressing (principal)
CPT/HCPCS: 99283

== ENCOUNTER 2021-10-25 10:51 | Inpatient (IN) | payer OTHER, SELFPAY ==
--- NOTE | ~2021-10-25 | CT_ITS ---
EXAMINATION: CT ABDOMEN AND PELVIS WITHOUT CONTRAST CLINICAL INFORMATION: Abdominal pain. COMPARISON: None TECHNIQUE: Multidetector volumetric imaging was performed from the superior aspect of the liver through the pubic symphysis. Sagittal and coronal reformatted images were obtained on the technologist's workstation. Lack of intravenous and oral contrast limits visceral evaluation. This CT examination was performed using dose optimization techniques as appropriate, variously including the following: *Automated exposure control *Adjustment of mA and/or kV according to patient size (this includes techniques or standardized protocols for targeted exams where dose is matched to indication/reason for exam; i.e. extremities or head) *Use of iterative reconstruction technique DLP: 836 mGy-cm FINDINGS: LUNG BASES: The visualized lung bases are unremarkable. LIVER, GALLBLADDER, AND BILIARY TREE unremarkable. PANCREAS: Unremarkable. SPLEEN: Unremarkable. ADRENAL GLANDS: Unremarkable. KIDNEYS AND URETERS: The kidneys are normal in size, shape, and attenuation. No hydronephrosis, hydroureter, or calculi seen. No perinephric stranding. BLADDER: Unremarkable. GASTROINTESTINAL TRACT: The stomach and proximal small bowel are unremarkable. There is a long segment of distal ileum into the terminal ileum demonstrating diffuse mural thickening measuring up to 0.7 cm (image 53, series 3). Mild surrounding infiltrative changes are seen. The approximate length of the involved segment is 40 cm. The appendix is unremarkable. The large bowel and rectum are unremarkable. ABDOMINAL WALL: No significant hernia is appreciated. LYMPH NODES: Enlarged ileocolic lymph nodes. VASCULAR: Unremarkable. PELVIC VISCERA: Unremarkable. OSSEOUS STRUCTURES: Unremarkable. CT/CT abdomen pelvis wo con IMPRESSION: 1. Long segment of distal/terminal ileum with abnormal mural thickening and surrounding infiltrative changes consistent with an infectious/inflammatory enteritis. No associated obstruction. No other significant abnormality. Fleischner guidelines were followed.
--- NOTE | ~2021-10-25 | CT_ITS ---
EXAMINATION: CT ABDOMEN AND PELVIS WITHOUT CONTRAST CLINICAL INFORMATION: Abdominal pain COMPARISON: CT abdomen pelvis without contrast 10/25/2021 TECHNIQUE: Multidetector volumetric imaging was performed from the superior aspect of the liver through the pubic symphysis. Sagittal and coronal reformatted images were obtained on the technologist's workstation. This CT examination was performed using dose optimization techniques as appropriate, variously including the following: *Automated exposure control *Adjustment of mA and/or kV according to patient size (this includes techniques or standardized protocols for targeted exams where dose is matched to indication/reason for exam; i.e. extremities or head) *Use of iterative reconstruction technique DLP: 952 mGy-cm FINDINGS: LUNG BASES: The visualized lung bases are unremarkable. LIVER, GALLBLADDER, AND BILIARY TREE: The liver is normal in size, shape, and attenuation. No focal hepatic lesion or biliary ductal dilatation is present. The gallbladder is unremarkable with no evidence of radiopaque gallstones, gallbladder wall thickening, or obvious pericholecystic inflammatory changes. PANCREAS: Unremarkable. SPLEEN: Unremarkable. ADRENAL GLANDS: Unremarkable. KIDNEYS AND URETERS: The kidneys are normal in size, shape, and attenuation. No hydronephrosis, hydroureter, or calculi seen. No perinephric stranding. BLADDER: Unremarkable. GASTROINTESTINAL TRACT: The stomach is opacified with oral contrast and appears unremarkable. The proximal small bowel loops in the colon appears unremarkable. There is mild mural thickening involving distal ileum, ileocecal junction. It has much improved since the previous study 10/25/2021. No free air or free fluid seen. Previously seen mild inflammatory process appears improved.. No free air or free fluid. Appendix is not visualized with certainty. ABDOMINAL WALL: No significant hernia is appreciated. LYMPH NODES: Prominent ileocolic lymph node axial image 49/3 is stable. No abnormal retroperitoneal lymph nodes seen. VASCULAR: Unremarkable. PELVIC VISCERA: The uterus is anteverted and appears unremarkable. There is no free fluid. OSSEOUS STRUCTURES: No aggressive lytic or sclerotic process seen. CT/CT abdomen pelvis wo con IMPRESSION: Residual mural thickening but significantly improved involving the distal ileum, ileocecal junction region. The fat stranding seen in the right lower quadrant has also improved. No change in the size of ileocolic lymph nodes. Rest of the abdomen is unremarkable. No free air or free fluid. Fleischner guidelines were followed.
--- NOTE | ~2021-10-25 | XR_ITS ---
EXAMINATION: XR ABDOMEN KUB CLINICAL INDICATION: Abdominal pain COMPARISON: 10/25/2021 TECHNIQUE: AP view of the abdomen. FINDINGS: The bowel gas pattern is nonobstructive. There is limited assessment for free air with supine positioning. No suspicious calcifications are seen. Included lung bases are well-aerated. No acute osseous findings are seen. XR/XR KUB IMPRESSION: No acute findings identified.
[2021-10-25 10:56] VITALS: BP 118/79; PULSE 102; O2SAT 98
[2021-10-25 11:11] VITALS: BP 120/75; PULSE 96; RESP 18; TEMP 36.2; O2SAT 99; BMI 46.8
[2021-10-25 13:46] LABS: MANUAL DIFF FLAG NO
[2021-10-25 13:51] LABS: Basophils Percent Auto 0.1 % (0-2); Eosinophils Absolute Auto 0.1 X10*3/uL (0.0-0.4); Eosinophils Percent Auto 0.3 % (0-4); Hematocrit 42.5 % (37.0-47.0); Hemoglobin 14.1 g/dl (12.0-16.0); Imm Gran Abs Auto 0.07 X10*3/uL (0.00-0.03); Imm Gran Pct Auto 0.4 % (0.0-0.4); Lymphocytes Absolute Auto 1.1 X10*3/uL (1.2-4.9); Lymphocytes Percent Auto 6.4 % (20-40); Mean Corpuscular HGB Conc 33.2 g/dl (31.0-35.0); Mean Corpuscular Hemoglobin 29.9 pg (27.0-33.0); Mean Platelet Volume 10.3 fL (9.4-12.3); Monocytes Absolute Auto 0.6 X10*3/uL (0.1-1.2); Monocytes Percent Auto 3.6 % (2-11); Neutrophils Absolute Auto 15.8 x10*3/uL (2.0-8.3); Neutrophils Percent Auto 89.2 % (45-73); Platelet Count 258 X10*3/uL (160-400); Red Blood Count 4.72 X10*6/uL (4.20-5.50); Red Cell Distribution Width 12.2 % (11.0-16.0); White Blood Count 17.7 X10*3/uL (4.8-10.8)
[2021-10-25 14:05] LABS: COVID-19 Test Negative (Negative)
[2021-10-25 14:09] LABS: Alanine Aminotransferase 28 U/L (0-31); Albumin Level 4.4 g/dL (3.5-5.0); Alkaline Phosphatase 77 U/L (39-117); Anion Gap 12 (12-20); Aspartate Amino Transferase 17 U/L (5-31); Bilirubin Total 0.5 mg/dL (0.0-1.0); Blood Urea Nitrogen 9 mg/dL (9-16); Carbon Dioxide 21 mmol/L (22-29); Chloride 109 mmol/L (96-108); Creatinine Clr Calc Pharmacy 112.5; Estimated Glomerular Filt Rate > 60; Ethanol < 10 mg/dL; Glucose Random 103 mg/dL (60-115); Lipase 61 U/L (8-78); Potassium 4.3 mmol/L (3.3-5.1); Sodium 138 mmol/L (135-145); Total Protein 7.4 g/dL (6.5-8.0)
[2021-10-25] MEDS: Ondansetron ODT 4 MG TAB.RAPDIS TRANSLINGU (14:29)
--- NOTE | 2021-10-25 14:33 | PC.NURSE ---
wretching, dry heaving, bile. given zofran. pale. clammy.
[2021-10-25 15:50] LABS: HCG Quantitative < 2 mIU/mL
[2021-10-25 16:14] VITALS: BP 118/69; PULSE 78; RESP 20; TEMP 36.7; O2SAT 100
--- NOTE | 2021-10-25 16:17 | ED_ITS ---
HPI - Abdominal Pain General Chief Complaint: Abdominal Pain Stated Complaint: R ABD PAIN SINCE T-1 PER EMS Time Seen by Provider: 10/25/21 16:03 Source: patient Mode of arrival: EMS Limitations: no limitations History of Present Illness HPI narrative: Patient presents to the emergency department via EMS for evaluation of right upper quadrant abdominal pain. With sudden onset 2 days ago. She has associated nausea vomiting and liquid diarrhea. She reports 5 episodes of diarrhea today 4 episodes of vomiting. Denies any blood in her stool or emesis, no dark/ black stools, coffee-ground emesis. She does report that this feels somewhat similar to episodes of gastritis but severely worse. Denies any prior history of gallstones. Denies fevers, chills, dizziness, lightheadedness, chest pain, palpitations, shortness of breath, difficulty breathing, possibility of , urinary frequency/urgency/hesitancy. Related Data Previous Rx's Medication Instructions Recorded Ventolin HFA 90 mcg/actuation 2 puff inhalation Q4-6H PRN 01/06/20 aerosol inhaler (albuterol sulfate) shortness of breath or wheezing #8 grams Allergies Allergy/AdvReac Type Severity Reaction Status Date / Time oxycodone [OXYCODONE] Allergy Unknown ITCHING, Verified 07/08/21 12:56 NAUSEA, HOT Review of Systems Review of Systems Constitutional : No Weight loss, No Fever, No Chills ENT/Mouth :? No sore throat, No Rhinorrhea Eyes: No Swelling, No Redness Cardiovascular : No Chest Pain, No SOB, No Edema Respiratory : No Cough, No Sputum, No Wheezing Gastrointestinal : Positive Nausea, Positive Vomiting, positive Diarrhea, positive abdominal pain, No Hematochezia, No Melena Genitourinary : No Dysuria, No Urinary Frequency, No Hematuria, No Urgency? Musculoskeletal : No joint pain, No Myalgias, No Joint Swelling Skin : No Skin Lesions, No rash Neuro : No Weakness, No Numbness, No Dizziness, No Headache Psych : No Anxiety/Panic, No Depression Heme/Lymph: No Bruising, No Lymphadenopathy Endocrine : No Polyuria, No Polydipsia Yes all other systems are reviewed and are negative PMFSH Past Medical History Attestation statement: The following information was validated with the patient. Source: old records reviewed Medical History Asthma Bronchitis Pulmonary nodule, right Surgical History History of tonsillectomy Hx of adenoidectomy Hx of section Social History Social History Alcohol intake: current Alcohol intake frequency: does not drink Patient Tobacco Use Status: Former Tobacco user Quit Date: 3 years ago Smoked in Last 30 Days: No Use of substances other than those prescribed or required for medical reasons: Yes Substance Use Type: Marijuana Advance Directives: No Advance Directives Information Provided: No Current occupational status: employed 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 handed Physical Exam ED Vital Signs: Vital Signs - 24 hr 10/25/21 11:11 10/25/21 16:14 10/25/21 18:39 Temperature 97.2 F 98.0 F Pulse Rate 96 78 80 Respiratory Rate 18 20 20 Blood Pressure 120/75 118/69 104/62 Pulse Oximetry 99 100 98 Oxygen Delivery Method Room Air Room Air Room Air BMI result Body Mass Index 46.8 Vital signs have been reviewed as normal and appeared to be correct. Blood pressure normal.? Heart rate normal.? Respiration rate normal. Temperature normal.? Oxygen saturation normal. Appearance: Alert.?Oriented to person, place and time. No acute distress.?Normal affect. Eyes: Pupils equal, round and reactive to light.? ENT: Pharynx normal.?? Neck: Normal inspection.? Neck supple.?? CVS: Heart sounds normal. Normal heart rate and rhythm.? Pulses normal.?? Respiratory: No respiratory distress.? Lung sounds clear to auscultation bilaterally?? Abdomen: Soft right upper quadrant tenderness on palpation, negative Johnson's sign. Normoactive bowel sounds. No pulsatile mass.? Negative Rovsing sign, negative obturator sign, negative psoas sign. No CVA tenderness. ? Skin: Skin warm and dry.? Normal skin color.? Extremities: No lower extremity edema.? Neuro: Moves all extremities spontaneously. Sensation intact bilaterally. CN II- XII intact. No focal neuro deficits. Ambulates with normal steady gait. Course Course Course Narrative: Patient is a 31-year-old female with a past medical history of asthma gastritis presents emergency department for evaluation right upper abdominal pain. The time of exam she appears significantly uncomfortable, however is hemodynamically stable. She already had Labs obtained in triage; CBC reveals leukocytosis 17.7, which may be secondary to vomiting. Does not meet SIRS criteria, afebrile tachycardia, tachypnea, hypoxia, hemodynamically stable. CMP is overall unremarkable, lipase normal, not . CT of abdomen and pelvis is curr ently pending. At this time will trial 1 L normal saline IV, Toradol IV for pain, Zofran IV for nausea. History and physical exam not consistent with GI perforation, GI bleed, AAA, aortic dissection, ectopic , DKA. Not consistent with strangulated hernia, bowel obstruction, pulmonary embolism, mesenteric ischemia, myocardial infarction, ovarian torsion. Disposition pending results. Reevaluation(s) Reevaluation #1: CT of the abdomen reveals a normal stomach and proximal small bowel. There is a long segment of the distal ileum into the terminal ileum with diffuse mural thickening, mild surrounding infiltrate to changes consistent with infectious/inflammatory enteritis. At this time infection is suspected, no evidence of end-organ failure this time, will defer sepsis fluid bolus, patient has already received 1 L normal saline will order an additional 1 L at this time. will obtain lactic acid, blood cultures, Levaquin IV and Flagyl IV. Patient reports a family history of colitis and her mother and her sister. She does report an allergy to oxycodone, but recently had knee surgery and was able to tolerate morphine. Pain is currently 8/10, patient to receive morphine IV Time: 18:07 Reevaluation #2: No lactic acidosis. ESR is mildly elevated, CRP is normal. Discussed case with Dr. Moreno, thought to be nonsurgical at this time. Advised inpatient admission for IV antibiotics and consultation with GI. Discussed all findings with patient, given her inability to tolerate p.o. in persistent pain, spoke with hospitalist Dr. Khan who accepts patient for admission to medicine service. Time: 19:15 MDM - Abdominal Pain Medical Records Attestation: I reviewed the patient's medical records. Lab Data Attestation: I reviewed the patient's lab results. Result diagrams: 10/25/21 13:40 10/25/21 13:40 Labs: Lab Results 10/25/21 10/25/21 10/25/21 Range/Units 13:40 13:40 13:40 WBC 17.7 H (4.8-10.8) X10*3/uL RBC 4.72 (4.20-5.50) X10*6/uL Hgb 14.1 (12.0-16.0) g/dl Hct 42.5 (37.0-47.0) % MCV 90.0 (80.0-98.0) fL MCH 29.9 (27.0-33.0) pg MCHC 33.2 (31.0-35.0) g/dl RDW 12.2 (11.0-16.0) % Plt Count 258 (160-400) X10*3/uL MPV 10.3 (9.4-12.3) fL Immature Gran % (Auto) 0.4 (0.0-0.4) % Neut % (Auto) 89.2 H (45-73) % Lymph % (Auto) 6.4 L (20-40) % [place] % (Auto) 3.6 (2-11) % Eos % (Auto) 0.3 (0-4) % Baso % (Auto) 0.1 (0-2) % Lymph # (Auto) 1.1 L (1.2-4.9) X10*3/uL [place] # (Auto) 0.6 (0.1-1.2) X10*3/uL Eos # (Auto) 0.1 (0.0-0.4) X10*3/uL Baso # (Auto) 0.0 (0.0-0.2) X10*3/uL Abs Immat Gran (auto) 0.07 H (0.00-0.03) X10*3/uL Absolute Neuts (auto) 15.8 H (2.0-8.3) x10*3/uL Absolute Nucleated RBC 0.000 (0.0-0.012) X10*3/uL Nucleated RBC % (auto) 0.0 (0.0-0.2) /100WBC ESR (0-20) MM/HR Sodium 138 (135-145) mmol/L Potassium 4.3 (3.3-5.1) mmol/L Chloride 109 H (96-108) mmol/L Carbon Dioxide 21 L (22-29) mmol/L Anion Gap 12 (12-20) BUN 9 (9-16) mg/dL Creatinine 0.81 (0.5-1.4) mg/dL Estim Creat Clear Calc 112.5 Estimated GFR > 60 Random Glucose 103 (60-115) mg/dL Lactic Acid (0.5-2.0) mmol/L Calcium 9.0 (8.4-10.2) mg/dL Total Bilirubin 0.5 (0.0-1.0) mg/dL AST 17 (5-31) U/L ALT 28 (0-31) U/L Alkaline Phosphatase 77 (39-117) U/L C-Reactive Protein 0.41 (< or = 0.50) mg/dL Total Protein 7.4 (6.5-8.0) g/dL Albumin 4.4 (3.5-5.0) g/dL Lipase 61 (8-78) U/L Beta HCG, Quant < 2 mIU/mL Urine Color Urine Appearance Urine pH (5.0-8.0) Ur Specific [place] (1.005-1.025) Urine Protein (NEG-TRACE) MG/DL Urine Glucose (UA) (NEG) MG/DL Urine Ketones (NEG) MG/DL Urine Blood (NEG) Urine Nitrite (NEG) Ur Leukocyte Esterase (NEG) Urine RBC (0) /HPF Urine WBC (0-4) /HPF Ur Squamous Epith Cells /LPF Urine Bacteria /LPF Ethyl Alcohol < 10 mg/dL COVID-19 ([facility]) Negative (Negative) COVID-19 Clin Com See Note 10/25/21 10/25/21 10/25/21 Range/Units 13:40 17:21 18:25 WBC (4.8-10.8) X10*3/uL RBC (4.20-5.50) X10*6/uL Hgb (12.0-16.0) g/dl Hct (37.0-47.0) % MCV (80.0-98.0) fL MCH (27.0-33.0) pg MCHC (31.0-35.0) g/dl RDW (11.0-16.0) % Plt Count (160-400) X10*3/uL MPV (9.4-12.3) fL Immature Gran % (Auto) (0.0-0.4) % Neut % (Auto) (45-73) % Lymph % (Auto) (20-40) % [place] % (Auto) (2-11) % Eos % (Auto) (0-4) % Baso % (Auto) (0-2) % Lymph # (Auto) (1.2-4.9) X10*3/uL [place] # (Auto) (0.1-1.2) X10*3/uL Eos # (Auto) (0.0-0.4) X10*3/uL Baso # (Auto) (0.0-0.2) X10*3/uL Abs Immat Gran (auto) (0.00-0.03) X10*3/uL Absolute Neuts (auto) (2.0-8.3) x10*3/uL Absolute Nucleated RBC (0.0-0.012) X10*3/uL Nucleated RBC % (auto) (0.0-0.2) /100WBC ESR 26 H (0-20) MM/HR Sodium (135-145) mmol/L Potassium (3.3-5.1) mmol/L Chloride (96-108) mmol/L Carbon Dioxide (22-29) mmol/L Anion Gap (12-20) BUN (9-16) mg/dL Creatinine (0.5-1.4) mg/dL Estim Creat Clear Calc Estimated GFR Random Glucose (60-115) mg/dL Lactic Acid 1.1 (0.5-2.0) mmol/L Calcium (8.4-10.2) mg/dL Total Bilirubin (0.0-1.0) mg/dL AST (5-31) U/L ALT (0-31) U/L Alkaline Phosphatase (39-117) U/L C-Reactive Protein (< or = 0.50) mg/dL Total Protein (6.5-8.0) g/dL Albumin (3.5-5.0) g/dL Lipase (8-78) U/L Beta HCG, Quant mIU/mL Urine Color YELLOW Urine Appearance CLEAR Urine pH 5.5 (5.0-8.0) Ur Specific [place] 1.015 (1.005-1.025) Urine Protein NEG (NEG-TRACE) MG/DL Urine Glucose (UA) NEG (NEG) MG/DL Urine Ketones NEG (NEG) MG/DL Urine Blood TRACE (NEG) Urine Nitrite NEG (NEG) Ur Leukocyte Esterase NEG (NEG) Urine RBC 1-4 (0) /HPF Urine WBC 0-2 (0-4) /HPF Ur Squamous Epith Cells 3+ /LPF Urine Bacteria TRACE /LPF Ethyl Alcohol mg/dL COVID-19 ([place]) (Negative) COVID-19 Clin Com Imaging Data CT scan - abdomen: Radiologist's impression: CT/CT abdomen pelvis wo con IMPRESSION: 1. Long segment of distal/terminal ileum with abnormal mural thickening and surrounding infiltrative changes consistent with an infectious/inflammatory enteritis. No associated obstruction. No other significant abnormality. Discharge Plan Discharge Clinical Impression: Enteritis Patient Disposition: Admitted As Inpatient
[2021-10-25] MEDS: 0.9 % Sodium Chloride 1,000 ML 999 ML IV ×2 (16:22→18:29)
[2021-10-25] MEDS: ondansetron HCL 4 MG/2 ML VIAL IVPUSH (16:24)
[2021-10-25] MEDS: Ketorolac Tromethamine 30 MG/ML VIAL IVPUSH (16:24)
[2021-10-25] MEDS: Lidocaine HCl Viscous 2 % 15 ML SOLUTION MUCOUS MEM (16:25)
[2021-10-25] MEDS: Magnesium Hydrox/Alum Hydrox 30 ML ORAL.SUSP PO (16:25)
[2021-10-25 17:33] LABS: Appearance Urine CLEAR; Color Urine YELLOW; Glucose Urine UA NEG (NEG); Leukocyte Esterase Urine NEG (NEG); Nitrite Urine NEG (NEG); PH 5.5 (5.0-8.0); Specific Gravity - Urine 1.015 (1.005-1.025); UACC Culture Trigger NO; Urine Blood TRACE (NEG); Urine Ketones NEG (NEG); Urine Protein NEG (NEG-TRACE)
[2021-10-25 17:45] LABS: Squamous Epithelial Cell Urine 3+ /LPF; WBC Urine 0-2 /HPF (0-4)
[2021-10-25 17:46] LABS: Bacteria Urine TRACE /LPF
[2021-10-25] MEDS: Morphine Sulfate 4 MG/ML CARTRIDGE IVPUSH (18:29)
[2021-10-25] MEDS: levoFLOXacin/D5W 750 MG/150 ML PIGGYBACK 100 MG IV (18:37)
[2021-10-25 18:39] VITALS: BP 104/62; PULSE 80; RESP 20; O2SAT 98
[2021-10-25 18:39] LABS: C Reactive Protein 0.41 mg/dL (< or = 0.50)
[2021-10-25 18:42] LABS: Lactic Acid 1.1 mmol/L (0.5-2.0)
[2021-10-25 19:04] LABS: Erythrocyte Sedimentation Rate 26 MM/HR (0-20)
[2021-10-25] MEDS: metroNIDAZOLE/NS 500 MG/100 ML PIGGYBACK 100 MG IV (19:15)
--- NOTE | 2021-10-25 20:22 | PHA.MEDREC ---
Pharmacy Consult ? Medication Reconciliation Pharmacy has completed the medication reconciliation. Patient confirmed shes not on any medications other than PRN albuterol.
[2021-10-25] MEDS: HYDROmorphone HCl 1 MG/ML SYRINGE 0.5 MG IVPUSH (20:55)
[2021-10-25] MEDS: Dextrose 5 % and 0.45 % NaCl 1,000 ML 100 ML IVCONT (20:55)
[2021-10-25] MEDS: Enoxaparin Sodium 40 MG/0.4 ML SYRINGE SUBCUT (20:56)
[2021-10-25] MEDS: cefTRIAXone sodium 1 GM in 0.9 % Sodium Chloride 50 ML IV (20:56)
[2021-10-25 21:28] VITALS: BP 111/75; PULSE 68; RESP 22; TEMP 36.6; O2SAT 99
--- NOTE | 2021-10-25 22:45 | P.HPHOSP_ITS ---
History of Present Illness Date of Service: 10/25/21 Chief Complaint: Abdominal pain 31-year-old female with the no significant past medical history except for gastritis, history of gallbladder polyps in the past presented to the hospital today with a chief complaint of abdominal pain. Patient reported that for the past 1 day she noted to have abdominal cramping worse on the right side; and today she had multiple episodes of nausea vomiting and diarrhea. Patient reports she has chronic diarrhea but for today she has increased episodes of diarrhea. Denies any blood in the stool. Denies any food poisoning or eating seafood. Patient denies any blood in the stool. Denies any change in her abdominal pain with bowel habits. Review of all other systems is negative except mentioned above ER course: Per ER team patient noted right-sided abdominal pain; CT scan showed enteritis. Admitted to the hospital for further management. Patient was given empiric antibiotics. [facility] Medical History Asthma Bronchitis Pulmonary nodule, right Surgical History History of tonsillectomy Hx of adenoidectomy Hx of section Social History Household Members: Children Housing: Apartment Do you presently have visiting nurse or other home services: No Alcohol intake: current Alcohol intake frequency: does not drink Patient Tobacco Use Status: Former Tobacco user Quit Date: 3 years ago Substance Use Type: Marijuana service: No Current occupational status: employed 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 handed Meds Allergies Allergy/AdvReac Type Severity Reaction Status Date / Time oxycodone [OXYCODONE] Allergy Unknown ITCHING, Verified 07/08/21 12:56 NAUSEA, HOT Active Medications: Current Medications Acetaminophen (Acetaminophen 325 Mg Tablet) 650 mg PO Q6H PRN PRN Reason: Pain, Mild (Pain Scale 1-3) Enoxaparin Sodium (Enoxaparin Sodium 40 Mg/0.4 Ml Syringe) 40 mg SUBCUT Q24H [facility]KE Last Admin: 10/25/21 20:56 Dose: 40 mg Hydromorphone HCl (Hydromorphone Hcl 1 Mg/Ml Syringe) 0.5 mg IVPUSH Q4H PRN; Protocol PRN Reason: Pain, Severe (Pain Scale 7-10) Last Admin: 10/25/21 20:55 Dose: 0.5 mg Dextrose/Sodium Chloride (D51/2ns) 1,000 mls @ 100 mls/hr IVCONT .Q10H [facility]KE Last Admin: 10/25/21 20:55 Dose: 100 mls/hr Ceftriaxone Sodium 1 gm/ (Sodium Chloride) 50 mls @ 100 mls/hr IV Q24H [facility] Last Infusion: 10/25/21 21:26 Dose: Infused Metronidazole (Flagyl) 500 mg in 100 mls @ 100 mls/hr IV Q8H [facility] Melatonin (Melatonin 3 Mg Tablet) 6 mg PO BEDTIME PRN PRN Reason: Insomnia Senna (Sennosides 8.6 Mg Tablet) 17.2 mg PO BEDTIME PRN PRN Reason: Constipation Sodium Chloride (0.9 % Sodium Chloride Flush 3 Ml Syringe) 3 ml IVFLUSH QSHIFT MIKE Physical Exam Vital Signs and Narrative: Vital Signs: Last Vital Signs Temp 97.9 F 10/25/21 21:28 Pulse 68 10/25/21 21:28 Resp 22 H 10/25/21 21:28 BP 111/75 10/25/21 21:28 Pulse Ox 99 10/25/21 21:28 O2 Del Method 10/25/21 21:28 BMI result Body Mass Index 46.8 Gen: Appears be in no acute distress HEENT: NCAT, Moist mucosa. Pulmonary: Vesicular breath sounds, fair air entry CVS: Normal S1-S2 Abdomen: BS+, Soft, tender in the right upper and lower quadrant; no guarding no rigidity. Extremities: Warm well perfused Neuro: Alert and awake. Results Labs CBC and Chem 7: 10/26/21 05:39 10/26/21 05:39 Labs: Laboratory Results - last 24 hr 10/25/21 10/25/21 10/25/21 13:40 13:40 13:40 MCV 90.0 MCH 29.9 MCHC 33.2 RDW 12.2 Plt Count 258 MPV 10.3 Immature Gran % (Auto) 0.4 Neut % (Auto) 89.2 H Lymph % (Auto) 6.4 L [place] % (Auto) 3.6 Eos % (Auto) 0.3 Baso % (Auto) 0.1 Lymph # (Auto) 1.1 L [place] # (Auto) 0.6 Eos # (Auto) 0.1 Baso # (Auto) 0.0 Abs Immat Gran (auto) 0.07 H Absolute Neuts (auto) 15.8 H Absolute Nucleated RBC 0.000 Nucleated RBC % (auto) 0.0 ESR Anion Gap 12 Estim Creat Clear Calc 112.5 Estimated GFR > 60 Random Glucose 103 Lactic Acid Calcium 9.0 Total Bilirubin 0.5 AST 17 ALT 28 Alkaline Phosphatase 77 C-Reactive Protein 0.41 Total Protein 7.4 Albumin 4.4 Lipase 61 Beta HCG, Quant < 2 Urine Color Urine Appearance Urine pH Ur Specific [place] Urine Protein Urine Glucose (UA) Urine Ketones Urine Blood Urine Nitrite Ur Leukocyte Esterase Urine RBC Urine WBC Ur Squamous Epith Cells Urine Bacteria Ethyl Alcohol < 10 COVID-19 ([place]) Negative COVID-19 Clin Com See Note 10/25/21 10/25/21 10/25/21 13:40 17:21 18:25 MCV MCH MCHC RDW Plt Count MPV Immature Gran % (Auto) Neut % (Auto) Lymph % (Auto) [place] % (Auto) Eos % (Auto) Baso % (Auto) Lymph # (Auto) [place] # (Auto) Eos # (Auto) Baso # (Auto) Abs Immat Gran (auto) Absolute Neuts (auto) Absolute Nucleated RBC Nucleated RBC % (auto) ESR 26 H Anion Gap Estim Creat Clear Calc Estimated GFR Random Glucose Lactic Acid 1.1 Calcium Total Bilirubin AST ALT Alkaline Phosphatase C-Reactive Protein Total Protein Albumin Lipase Beta HCG, Quant Urine Color YELLOW Urine Appearance CLEAR Urine pH 5.5 Ur Specific [place] 1.015 Urine Protein NEG Urine Glucose (UA) NEG Urine Ketones NEG Urine Blood TRACE Urine Nitrite NEG Ur Leukocyte Esterase NEG Urine RBC 1-4 Urine WBC 0-2 Ur Squamous Epith Cells 3+ Urine Bacteria TRACE Ethyl Alcohol COVID-19 ([place]) COVID-19 Clin Com Imaging Radiologist's Impressions: Impressions Abdomen/Pelvis CT 10/25/21 16:05 IMPRESSION: 1. Long segment of distal/terminal ileum with abnormal mural thickening and surrounding infiltrative changes consistent with an infectious/inflammatory enteritis. No associated obstruction. No other significant abnormality. Fleischner guidelines were followed. Assessment and Plan (1) Enteritis: Status: Acute Plan 31-year-old female with a past medical history of gastritis, recent meniscal tear surgery, history of pulmonary nodule, asthma, gallbladder polyps presented to the hospital today with a chief complaint of abdominal pain/nausea/vomiting/diarrhea. CT scan showed enteritis. Admitted for further management. Enteritis: CT scan showed long segment of ileum/right side of the colon inflammation; concerning for enteritis. Question IBS Will obtain AMANDO panel, ESR, CRP Patient empirically given antibiotics in the ER-will continue for now Stool studies Gastroenterology consult NPO-advanced diet as tolerated History of asthma: Stable. DVT prophylaxis: Lovenox Code status: Full code Quality Stroke Does the patient have a stroke diagnosis?: No VTE Prior VTE?: No VTE Risk Level:: Medical - moderate - high VTE Device Contraindication: Treatment Not Indicated VTE Drug Contraindication: N/A - Med Ordered
[2021-10-25 23:31] VITALS: BP 106/49; PULSE 70; RESP 18; TEMP 36.6; O2SAT 98
[2021-10-26 00:57] VITALS: RESP 20
[2021-10-26] MEDS: HYDROmorphone HCl 1 MG/ML SYRINGE 0.5 MG IVPUSH ×5 (00:57→23:43)
[2021-10-26] MEDS: metroNIDAZOLE/NS 500 MG/100 ML PIGGYBACK 100 MG IV ×3 (01:00→18:14)
[2021-10-26 06:04] VITALS: BP 119/63; PULSE 65; RESP 18; TEMP 37; O2SAT 97
[2021-10-26 06:31] LABS: MANUAL DIFF FLAG NO
[2021-10-26 06:49] LABS: Basophils Percent Auto 0.2 % (0-2); Eosinophils Absolute Auto 0.1 X10*3/uL (0.0-0.4); Eosinophils Percent Auto 0.8 % (0-4); Hematocrit 35.5 % (37.0-47.0); Hemoglobin 11.8 g/dl (12.0-16.0); Imm Gran Abs Auto 0.03 X10*3/uL (0.00-0.03); Imm Gran Pct Auto 0.4 % (0.0-0.4); Lymphocytes Absolute Auto 1.7 X10*3/uL (1.2-4.9); Lymphocytes Percent Auto 19.7 % (20-40); Mean Corpuscular HGB Conc 33.2 g/dl (31.0-35.0); Mean Corpuscular Hemoglobin 30.5 pg (27.0-33.0); Mean Corpuscular Volume 91.7 fL (80.0-98.0); Mean Platelet Volume 10.9 fL (9.4-12.3); Monocytes Absolute Auto 0.6 X10*3/uL (0.1-1.2); Monocytes Percent Auto 7.2 % (2-11); Neutrophils Percent Auto 71.7 % (45-73); Platelet Count 205 X10*3/uL (160-400); Red Blood Count 3.87 X10*6/uL (4.20-5.50); Red Cell Distribution Width 12.2 % (11.0-16.0); White Blood Count 8.4 X10*3/uL (4.8-10.8)
[2021-10-26 07:14] LABS: Anion Gap 9 (12-20); Blood Urea Nitrogen 6 mg/dL (9-16); Carbon Dioxide 22 mmol/L (22-29); Chloride 109 mmol/L (96-108); Creatinine Clr Calc Pharmacy 124.9; Estimated Glomerular Filt Rate > 60; Glucose Random 99 mg/dL (60-115); Potassium 4.2 mmol/L (3.3-5.1); Sodium 136 mmol/L (135-145)
[2021-10-26] MEDS: Dextrose 5 % and 0.45 % NaCl 1,000 ML 100 ML IVCONT ×3 (07:18→20:35)
[2021-10-26 07:24] LABS: Calcium 8.1 mg/dL (8.4-10.2)
--- NOTE | 2021-10-26 07:59 | PM.GICN ---
History of Present Illness Data of Consult Service Date: 10/26/21 Requesting physician: Juve Khan Primary Care Provider: Unknown Physician HPI Reason for consult: Enteritis 31 year old female with gastritis, history of gallbladder polyps brought [place] [facility] on 10/25/21 by EMS for abdominal pain.? Patient complained of sudden onset of 10/10 abdominal pain (felt like menstrual cramps/labor pains) on 10/23/21 with nausea vomiting and liquid diarrhea.? Pt noted chills and sweating and denies fever. She noted 5 episodes of diarrhea and 4 episodes of vomiting on 10/25/21.? Denies any blood in her stool or emesis, no dark/ black stools, coffee-ground emesis.? She did report that this feels somewhat similar to episodes of gastritis but much worse.? Past US showed GB polyps and pt denies any prior history of gallstones.? Pt denied fevers, dizziness, lightheadedness, chest pain, palpitations, shortness of breath, difficulty breathing, possibility of , urinary frequency/urgency/hesitancy. Patient notes chronic diarrhea for the past 6 months with up to 4 watery (? greasy and hard to flush) bowel movements a day Denies recent antibiotics, food poisoning or eating seafood.?? Denies any change in her abdominal pain with bowel habits.? Patient gives a hx of severe heartburn which did not respond to high dose pantoprazole and she stopped taking it. She admits to weight gain from 145 to 290 lb over the past 6-12 months Patient has asthma and denies major cardiac loud snoring or sleep apnea Denies problems with anesthesia in the past. Denies being on chronic anticoagulation. 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 She admits to smoking marijuana and drinks alcohol occasionally Patient denies known family history of colon polyps, colon cancer. Family hx is positive on her Mom's side for digestive issues: A maternal aunt has pancreatitis Mat GF of pancreatic CA. A sister has celiac disease Pt's Mom had metastatic lung cancer PAST EGD/COLONOSCOPY: Pt denies having an EGD or colonoscopy in the past. Labs showed elevated WBC count, elevated ESR and normal CRP, LFTs and lipase. ER course: Per ER team patient noted right-sided abdominal pain; CT scan showed enteritis.? Admitted to the hospital for further management.? Patient was given empiric antibiotics. IMAGING STUDIES: 10/25/[address] SCAN SHOWED: Long segment of distal/terminal ileum with abnormal mural thickening and surrounding infiltrative changes consistent with an infectious/inflammatory enteritis. No associated obstruction. No other significant abnormality. Review of Systems Review of Systems: Constitutional : No Weight loss, No Fever, No Chills ENT/Mouth :? No sore throat, No Rhinorrhea Eyes: No Swelling, No Redness Cardiovascular : No Chest Pain, No SOB, No Edema Respiratory : No Cough, No Sputum, No Wheezing Gastrointestinal : Positive Nausea, Positive Vomiting, positive Diarrhea, positive abdominal pain, No Hematochezia, No Melena Genitourinary : No Dysuria, No Urinary Frequency, No Hematuria, No Urgency? Musculoskeletal : No joint pain, No Myalgias, No Joint Swelling Skin : No Skin Lesions, No rash Neuro : No Weakness, No Numbness, No Dizziness, No Headache Psych : No Anxiety/Panic, No Depression Heme/Lymph: No Bruising, No Lymphadenopathy Endocrine : No Polyuria, No Polydipsia Yes all other systems are reviewed and are negative [facility] Past Medical History Medical History Asthma Bronchitis Pulmonary nodule, right Surgical History Surgical History History of tonsillectomy Hx of adenoidectomy Hx of section Social History Social History Household Members: Children Housing: Apartment Do you presently have visiting nurse or other home services: No Alcohol intake: current Alcohol intake frequency: does not drink Patient Tobacco Use Status: Former Tobacco user Quit Date: 3 years ago Substance Use Type: Marijuana service: No Current occupational status: employed 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 handed Meds Allergies Allergy/AdvReac Type Severity Reaction Status Date / Time oxycodone [OXYCODONE] Allergy Unknown ITCHING, Verified 07/08/21 12:56 NAUSEA, HOT Active Medications: Current Medications Acetaminophen (Acetaminophen 325 Mg Tablet) 650 mg PO Q6H PRN PRN Reason: Pain, Mild (Pain Scale 1-3) Enoxaparin Sodium (Enoxaparin Sodium 40 Mg/0.4 Ml Syringe) 40 mg SUBCUT Q24H [facility] Last Admin: 10/25/21 20:56 Dose: 40 mg Hydromorphone HCl (Hydromorphone Hcl 1 Mg/Ml Syringe) 0.5 mg IVPUSH Q4H PRN; Protocol PRN Reason: Pain, Severe (Pain Scale 7-10) Last Admin: 10/26/21 07:16 Dose: 0.5 mg Dextrose/Sodium Chloride (D51/2ns) 1,000 mls @ 100 mls/hr IVCONT .Q10H [facility] Last Admin: 10/26/21 07:18 Dose: 100 mls/hr Ceftriaxone Sodium 1 gm/ (Sodium Chloride) 50 mls @ 100 mls/hr IV Q24H [facility] Last Infusion: 10/25/21 21:26 Dose: Infused Metronidazole (Flagyl) 500 mg in 100 mls @ 100 mls/hr IV Q8H [facility] Last Infusion: 10/26/21 02:00 Dose: Infused Melatonin (Melatonin 3 Mg Tablet) 6 mg PO BEDTIME PRN PRN Reason: Insomnia Senna (Sennosides 8.6 Mg Tablet) 17.2 mg PO BEDTIME PRN PRN Reason: Constipation Sodium Chloride (0.9 % Sodium Chloride Flush 3 Ml Syringe) 3 ml IVFLUSH QSHIFT [facility] Last Admin: 10/26/21 07:19 Dose: Not Given Physical Exam Vital Signs: Vital Signs: Last Vital Signs Temp 98.6 F 10/26/21 06:04 Pulse 65 10/26/21 06:04 Resp 18 10/26/21 06:04 BP 119/63 10/26/21 06:04 Pulse Ox 97 10/26/21 06:04 O2 Del Method 10/26/21 06:04 BMI result Body Mass Index 46.8 Const: General: no acute distress Nutritional Appearance: obese Orientation/consciousness: patient oriented x3 Limitations: no limitations HEENT: Head: Yes normal to inspection Ears: hearing grossly normal bilaterally Eyes: Sclerae: sclerae normal Pupils: Equal, round and reactive pupils present Neck: Neck: Yes normal visual inspection Chest: Chest palpation & inspection: normal inspection of the chest Resp: Effort & Inspection: normal respiratory effort Auscultation: clear to auscultation bilaterally Cardio: Palpation: normal PMI Rate: regular rate Rhythm: regular rhythm Heart sounds: S1 normal heart sound present, S2 normal heart sound present and no murmurs GI: Inspection: Yes obesity Palpation (GI): Soft to palpation, Tenderness to palpation present (GI) (moderate diffuse right sided abdominal tenderness) and No hepatosplenomegaly present Auscultation: normal bowel sounds Rectal Exam - Female: deferred Skin: General skin exam: no rashes or lesions noted Neuro: General: patient oriented x3, gait normal and moves all extremities Cranial nerves: Yes Equal, round and reactive pupils present Psych: Appearance: grossly normal Mental Status: mental status grossly normal Results Labs CBC & Chem 7: 10/30/21 14:42 10/30/21 14:42 Labs: Short CBC 10/25/21 10/26/21 Range/Units 13:40 05:39 WBC 17.7 H 8.4 (4.8-10.8) X10*3/uL Hgb 14.1 11.8 L (12.0-16.0) g/dl Hct 42.5 35.5 L (37.0-47.0) % Plt Count 258 205 (160-400) X10*3/uL BMP 10/25/21 10/26/21 13:40 05:39 Sodium 138 136 Potassium 4.3 4.2 Chloride 109 H 109 H Carbon Dioxide 21 L 22 BUN 9 6 L Creatinine 0.81 0.73 Calcium 9.0 8.1 L D Liver Function 10/25/21 Range/Units 13:40 Total Bilirubin 0.5 (0.0-1.0) mg/dL AST 17 (5-31) U/L ALT 28 (0-31) U/L Alkaline Phosphatase 77 (39-117) U/L Albumin 4.4 (3.5-5.0) g/dL Urine 10/25/21 Range/Units 17:21 Urine Color YELLOW Urine Appearance CLEAR Urine pH 5.5 (5.0-8.0) Ur Specific [place] 1.015 (1.005-1.025) Urine Protein NEG (NEG-TRACE) MG/DL Urine Glucose (UA) NEG (NEG) MG/DL Assessment and Plan (1) Enteritis: Status: Acute (2) Chronic diarrhea: Status: Acute Plan 31 year old female with gastritis, history of gallbladder polyps admitted [place] [facility] on 10/25/21 with abdominal pain, nausea vomiting and liquid nonbloody diarrhea.?.? Patient notes chronic diarrhea for the past 6 months with up to 4 watery (? greasy and hard to flush) bowel movements a day Denies recent antibiotics, food poisoning or eating seafood.?? Pt's symptoms can be due to infectious enteritis due to campylobacter or Yersinia. Given a hx of chronic diarrhea, she may have Crohn's disease with acute flare. 10/25/[address] SCAN SHOWED: Long segment of distal/terminal ileum with abnormal mural thickening and surrounding infiltrative changes consistent with an infectious/inflammatory enteritis. No associated obstruction. No other significant abnormality. RECOMMENDATIONS: 1. Agree with IV fluids, pain medications and antibiotics 2. Check stool studies for leukocytes and enteric pathogens. 3. Check celiac serologies given positive family history of celiac disease - added to a.m. labs. 4. Clear liquid diet. 5. If her symptoms do not resolve, I will schedule her for an EGD and colon on 10/29/21 Procedures Date of Service Date of Service: 10/26/21
--- NOTE | 2021-10-26 09:45 | MHC.CM.PN ---
Patient lives in an apartment with her 2 children ages 6 & 12 years of age. Home/no services is the goal and CM has initiated and will follow for dc planning. PCP is from [facility] in [place] and Patient has received [employer] vax X2.
[2021-10-26 11:08] LABS: Erythrocyte Sedimentation Rate 23 MM/HR (0-20)
--- NOTE | 2021-10-26 11:44 | P.PNIM_ITS ---
Subjective Subjective Date of Service: 10/26/21 Interval History: Seen in f/u for diarrhea, enteritis Interval history: diarrhea is better but abd pain is uncanged Review of Systems abd pain no fever diarrhea Physical Exam Vital Signs: Vital Signs: Last Vital Signs Temp 98.6 F 10/26/21 06:04 Pulse 65 10/26/21 06:04 Resp 18 10/26/21 06:04 BP 119/63 10/26/21 06:04 Pulse Ox 97 10/26/21 06:04 O2 Del Method 10/26/21 06:04 BMI result Body Mass Index 46.8 Const: Other: General: AO X 3, no acute distress Resp: CTA bilateral CVS: S1,S2,RRR GI: non specific tenderness, no guarding, no rebound Skin: No rash Neuro: motor grossly intact Psych: appropriate affect Objective Data Active Medications Acetaminophen (Acetaminophen 325 Mg Tablet) 650 mg PO Q6H PRN PRN Reason: Pain, Mild (Pain Scale 1-3) Enoxaparin Sodium (Enoxaparin Sodium 40 Mg/0.4 Ml Syringe) 40 mg SUBCUT Q24H [facility] Last Admin: 10/25/21 20:56 Dose: 40 mg Documented By: SILVIANO Hydromorphone HCl (Hydromorphone Hcl 1 Mg/Ml Syringe) 0.5 mg IVPUSH Q4H PRN; Protocol PRN Reason: Pain, Severe (Pain Scale 7-10) Last Admin: 10/26/21 07:16 Dose: 0.5 mg Documented By: ZEHRA Dextrose/Sodium Chloride (D51/2ns) 1,000 mls @ 100 mls/hr IVCONT .Q10H [facility] Last Admin: 10/26/21 07:18 Dose: 100 mls/hr Documented By: ZEHRA Ceftriaxone Sodium 1 gm/ (Sodium Chloride) 50 mls @ 100 mls/hr IV Q24H [facility] Last Infusion: 10/25/21 21:26 Dose: 0 mls/hr Documented By: DAMARIS Metronidazole (Flagyl) 500 mg in 100 mls @ 100 mls/hr IV Q8H [facility] Last Admin: 10/26/21 11:11 Dose: 100 mls/hr Documented By: ZEHRA Melatonin (Melatonin 3 Mg Tablet) 6 mg PO BEDTIME PRN PRN Reason: Insomnia Senna (Sennosides 8.6 Mg Tablet) 17.2 mg PO BEDTIME PRN PRN Reason: Constipation Sodium Chloride (0.9 % Sodium Chloride Flush 3 Ml Syringe) 3 ml IVFLUSH QSHIFT [facility] Last Admin: 10/26/21 07:19 Dose: Not Given Documented By: ZEHRA Non-Admin Reason: IV Running Labs CBC & Chem 7: 10/26/21 05:39 10/26/21 05:39 Labs: Laboratory Results - last 24 hr 10/25/21 10/25/21 10/25/21 13:40 13:40 13:40 MCV 90.0 MCH 29.9 MCHC 33.2 RDW 12.2 Plt Count 258 MPV 10.3 Immature Gran % (Auto) 0.4 Neut % (Auto) 89.2 H Lymph % (Auto) 6.4 L [place] % (Auto) 3.6 Eos % (Auto) 0.3 Baso % (Auto) 0.1 Lymph # (Auto) 1.1 L [place] # (Auto) 0.6 Eos # (Auto) 0.1 Baso # (Auto) 0.0 Abs Immat Gran (auto) 0.07 H Absolute Neuts (auto) 15.8 H Absolute Nucleated RBC 0.000 Nucleated RBC % (auto) 0.0 ESR Anion Gap 12 Estim Creat Clear Calc 112.5 Estimated GFR > 60 Random Glucose 103 Lactic Acid Calcium 9.0 Total Bilirubin 0.5 AST 17 ALT 28 Alkaline Phosphatase 77 C-Reactive Protein 0.41 Total Protein 7.4 Albumin 4.4 Lipase 61 Beta HCG, Quant < 2 Urine Color Urine Appearance Urine pH Ur Specific [place] Urine Protein Urine Glucose (UA) Urine Ketones Urine Blood Urine Nitrite Ur Leukocyte Esterase Urine RBC Urine WBC Ur Squamous Epith Cells Urine Bacteria Ethyl Alcohol < 10 COVID-19 ([place]) Negative COVID-19 Clin Com See Note 10/25/21 10/25/21 10/25/21 13:40 17:21 18:25 MCV MCH MCHC RDW Plt Count MPV Immature Gran % (Auto) Neut % (Auto) Lymph % (Auto) [place] % (Auto) Eos % (Auto) Baso % (Auto) Lymph # (Auto) [place] # (Auto) Eos # (Auto) Baso # (Auto) Abs Immat Gran (auto) Absolute Neuts (auto) Absolute Nucleated RBC Nucleated RBC % (auto) ESR 26 H Anion Gap Estim Creat Clear Calc Estimated GFR Random Glucose Lactic Acid 1.1 Calcium Total Bilirubin AST ALT Alkaline Phosphatase C-Reactive Protein Total Protein Albumin Lipase Beta HCG, Quant Urine Color YELLOW Urine Appearance CLEAR Urine pH 5.5 Ur Specific [place] 1.015 Urine Protein NEG Urine Glucose (UA) NEG Urine Ketones NEG Urine Blood TRACE Urine Nitrite NEG Ur Leukocyte Esterase NEG Urine RBC 1-4 Urine WBC 0-2 Ur Squamous Epith Cells 3+ Urine Bacteria TRACE Ethyl Alcohol COVID-19 ([place]) COVID-19 Clin Com 10/26/21 10/26/21 10/26/21 05:39 05:39 05:39 MCV 91.7 MCH 30.5 MCHC 33.2 RDW 12.2 Plt Count 205 MPV 10.9 Immature Gran % (Auto) 0.4 Neut % (Auto) 71.7 Lymph % (Auto) 19.7 L [place] % (Auto) 7.2 Eos % (Auto) 0.8 Baso % (Auto) 0.2 Lymph # (Auto) 1.7 [place] # (Auto) 0.6 Eos # (Auto) 0.1 Baso # (Auto) 0.0 Abs Immat Gran (auto) 0.03 Absolute Neuts (auto) 6.0 Absolute Nucleated RBC 0.000 Nucleated RBC % (auto) 0.0 ESR 23 H Anion Gap 9 L Estim Creat Clear Calc 124.9 Estimated GFR > 60 Random Glucose 99 Lactic Acid Calcium 8.1 L D Total Bilirubin AST ALT Alkaline Phosphatase C-Reactive Protein 2.10 H Total Protein Albumin Lipase Beta HCG, Quant Urine Color Urine Appearance Urine pH Ur Specific [place] Urine Protein Urine Glucose (UA) Urine Ketones Urine Blood Urine Nitrite Ur Leukocyte Esterase Urine RBC Urine WBC Ur Squamous Epith Cells Urine Bacteria Ethyl Alcohol COVID-19 ([place]) COVID-19 Clin Com Assessment and Plan (1) Enteritis: Status: Acute Plan 31-year-old female with a past medical history of gastritis, recent meniscal tear surgery, history of pulmonary nodule, asthma, gallbladder polyps presented to the hospital today with a chief complaint of abdominal pain/nausea/vomiting/diarrhea.? CT scan showed enteritis.? Admitted for further management.? Enteritis: CT scan showed long segment of ileum/right side of the colon inflammation; concerning for enteritis. Question IBS ESR is mid high at 23, CRP 2.1 Empiric Flagy and Ceftriaxone IVF Dilaudid for pain GI to assess History of mild intermitent asthma: Stable. DVT prophylaxis:? Lovenox Code status: Full code Quality Stroke Does the patient have a stroke diagnosis?: No VTE Prior VTE?: No VTE Risk Level:: Medical - moderate - high VTE Device Contraindication: Treatment Not Indicated VTE Drug Contraindication: N/A - Med Ordered
[2021-10-26 14:16] VITALS: BP 101/53; PULSE 58; RESP 16; O2SAT 100
[2021-10-26 18:06] VITALS: BP 104/55; PULSE 65; RESP 18; TEMP 36.4; O2SAT 100
[2021-10-26] MEDS: cefTRIAXone sodium 1 GM in 0.9 % Sodium Chloride 50 ML IV (20:37)
[2021-10-26] MEDS: Enoxaparin Sodium 40 MG/0.4 ML SYRINGE SUBCUT (20:39)
[2021-10-26] MEDS: 0.9 % Sodium Chloride Flush 3 ML SYRINGE IVFLUSH (23:46)
[2021-10-27] VITALS: BP 118/64; PULSE 75; RESP 18; TEMP 37.1; O2SAT 98
[2021-10-27] MEDS: metroNIDAZOLE/NS 500 MG/100 ML PIGGYBACK 100 MG IV ×3 (01:45→18:02)
[2021-10-27] MEDS: HYDROmorphone HCl 0.5 MG/0.5 ML SYRINGE IVPUSH (02:39)
[2021-10-27 02:40] VITALS: BP 122/75; PULSE 64; RESP 16; TEMP 36.6; O2SAT 98
[2021-10-27] MEDS: HYDROmorphone HCl 1 MG/ML SYRINGE 0.5 MG IVPUSH ×4 (06:05→22:13)
[2021-10-27 07:54] VITALS: BP 92/54; PULSE 72; RESP 18; TEMP 36.2; O2SAT 96
[2021-10-27 07:57] LABS: TSH reflex Free T4 2.26 uIU/mL (0.32-4.0)
[2021-10-27] MEDS: 0.9 % Sodium Chloride Flush 3 ML SYRINGE IVFLUSH ×2 (08:25→14:08)
[2021-10-27] MEDS: 0.9 % Sodium Chloride 1,000 ML 999 ML IV (08:25)
--- NOTE | 2021-10-27 09:17 | HO.PM.IMPN ---
Subjective Subjective Date of Service: 10/27/21 Interval History: Seen in f/u for diarrhea, enteritis Interval history: she has normal diarrhea, pain is better, , sheis hungry and wants eat Review of Systems abd pain no fever diarrhea Physical Exam Vital Signs: Vital Signs: Last Vital Signs Temp 97.2 F 10/27/21 07:54 Pulse 72 10/27/21 07:54 Resp 18 10/27/21 07:54 BP 92/54 L 10/27/21 07:54 Pulse Ox 96 10/27/21 07:54 O2 Del Method 10/27/21 07:54 BMI result Body Mass Index 46.8 Const: Other: General: AO X 3, no acute distress Resp: CTA bilateral CVS: S1,S2,RRR GI: non specific tenderness, no guarding, no rebound Skin: No rash Neuro: motor grossly intact Psych: appropriate affect Objective Data Active Medications Acetaminophen (Acetaminophen 325 Mg Tablet) 650 mg PO Q6H PRN PRN Reason: Pain, Mild (Pain Scale 1-3) Enoxaparin Sodium (Enoxaparin Sodium 40 Mg/0.4 Ml Syringe) 40 mg SUBCUT Q24H [facility] Last Admin: 10/26/21 20:39 Dose: 40 mg Documented By: DAVID Hydromorphone HCl (Hydromorphone Hcl 1 Mg/Ml Syringe) 0.5 mg IVPUSH Q4H PRN; Protocol PRN Reason: Pain, Severe (Pain Scale 7-10) Last Admin: 10/27/21 06:05 Dose: 0.5 mg Documented By: ROSALEE Dextrose/Sodium Chloride (D51/2ns) 1,000 mls @ 100 mls/hr IVCONT .Q10H [facility] Last Admin: 10/26/21 20:35 Dose: 100 mls/hr Documented By: DAVID Ceftriaxone Sodium 1 gm/ (Sodium Chloride) 50 mls @ 100 mls/hr IV Q24H [facility] Last Infusion: 10/26/21 22:20 Dose: 0 mls/hr Documented By: DAVID Metronidazole (Flagyl) 500 mg in 100 mls @ 100 mls/hr IV Q8H [facility] Last Infusion: 10/27/21 02:50 Dose: 0 mls/hr Documented By: ROSALEE Sodium Chloride (Ns) 1,000 mls @ 999 mls/hr IV .Q1H1M [facility] Stop: 10/27/21 09:30 Last Admin: 10/27/21 08:25 Dose: 999 mls/hr Documented By: ADRIENNE Melatonin (Melatonin 3 Mg Tablet) 6 mg PO BEDTIME PRN PRN Reason: Insomnia Senna (Sennosides 8.6 Mg Tablet) 17.2 mg PO BEDTIME PRN PRN Reason: Constipation Sodium Chloride (0.9 % Sodium Chloride Flush 3 Ml Syringe) 3 ml IVFLUSH QSHIFT [facility] Last Admin: 10/27/21 08:25 Dose: 3 ml Documented By: ADRIENNE Labs CBC & Chem 7: 10/26/21 05:39 10/26/21 05:39 Labs: Laboratory Results - last 24 hr 10/26/21 10/26/21 10/27/21 05:39 05:39 05:41 ESR 23 H C-Reactive Protein 2.10 H TSH 2.26 Microbiology Microbiology Results: Microbiology 10/25/21 18:34 Blood Culture - Preliminary Blood - Venous No growth after 24 hours. 10/25/21 18:25 Blood Culture - Preliminary Blood - Venous No growth after 24 hours. Assessment and Plan (1) Enteritis: Status: Acute Plan 31-year-old female with a past medical history of gastritis, recent meniscal tear surgery, history of pulmonary nodule, asthma, gallbladder polyps presented to the hospital today with a chief complaint of abdominal pain/nausea/vomiting/diarrhea. CT scan showed enteritis. Admitted for further management. Enteritis: CT scan showed long segment of ileum/right side of the colon inflammation; concerning for enteritis. Question IBS Will obtain AMANDO panel, ESR, CRP Continue antibiotics and possibly changed to p.o. if she tolerates diet gastroenterology recommendation noted, celiac serology pending no stool studies she not offer any stool advanced to low-fat diets History of asthma: Stable. DVT prophylaxis: Lovenox Code status: Full code Need for inaptient: Acute enteritis needing IV Abx possibly home today Quality Stroke Does the patient have a stroke diagnosis?: No VTE Prior VTE?: No VTE Risk Level:: Medical - moderate - high VTE Device Contraindication: Treatment Not Indicated VTE Drug Contraindication: N/A - Med Ordered
[2021-10-27 09:45] VITALS: BP 98/56
[2021-10-27] MEDS: Dextrose 5 % and 0.45 % NaCl 1,000 ML 100 ML IVCONT (14:12)
[2021-10-27 16:00] VITALS: BP 106/65; PULSE 79; TEMP 36.6; O2SAT 98
[2021-10-27] MEDS: Enoxaparin Sodium 40 MG/0.4 ML SYRINGE SUBCUT (21:01)
[2021-10-27] MEDS: cefTRIAXone sodium 1 GM in 0.9 % Sodium Chloride 50 ML IV (21:01)
[2021-10-28] VITALS: BP 127/86; PULSE 81; RESP 18; TEMP 36.7; O2SAT 97
[2021-10-28] MEDS: metroNIDAZOLE/NS 500 MG/100 ML PIGGYBACK 100 MG IV ×3 (02:11→20:59)
[2021-10-28] MEDS: HYDROmorphone HCl 1 MG/ML SYRINGE 0.5 MG IVPUSH ×4 (03:19→22:28)
--- NOTE | 2021-10-28 07:39 | P.PNIM_ITS ---
Subjective Subjective Date of Service: 10/28/21 Interval History: Seen in f/u for diarrhea, enteritis Interval history: Persistent pain but better Review of Systems abd pain no fever diarrhea Physical Exam Vital Signs: Vital Signs: Last Vital Signs Temp 98.1 F 10/28/21 00:00 Pulse 81 10/28/21 00:00 Resp 18 10/28/21 00:00 BP 127/86 10/28/21 00:00 Pulse Ox 97 10/28/21 00:00 O2 Del Method 10/28/21 00:00 BMI result Body Mass Index 46.8 Const: Other: General: AO X 3, no acute distress Resp: CTA bilateral CVS: S1,S2,RRR GI: mild mid abd tenderness, no guarding, no rebound Skin: No rash Neuro: motor grossly intact Psych: appropriate affect Objective Data Active Medications Acetaminophen (Acetaminophen 325 Mg Tablet) 650 mg PO Q6H PRN PRN Reason: Pain, Mild (Pain Scale 1-3) Enoxaparin Sodium (Enoxaparin Sodium 40 Mg/0.4 Ml Syringe) 40 mg SUBCUT Q24H [facility] Last Admin: 10/27/21 21:01 Dose: 40 mg Documented By: YOHANNES Hydromorphone HCl (Hydromorphone Hcl 1 Mg/Ml Syringe) 0.5 mg IVPUSH Q4H PRN; Protocol PRN Reason: Pain, Severe (Pain Scale 7-10) Last Admin: 10/28/21 03:19 Dose: 0.5 mg Documented By: YOHANNES Ceftriaxone Sodium 1 gm/ (Sodium Chloride) 50 mls @ 100 mls/hr IV Q24H [facility] Last Infusion: 10/27/21 21:43 Dose: 0 mls/hr Documented By: YOHANNES Metronidazole (Flagyl) 500 mg in 100 mls @ 100 mls/hr IV Q8H [facility] Last Infusion: 10/28/21 03:30 Dose: 0 mls/hr Documented By: YOHANNES Melatonin (Melatonin 3 Mg Tablet) 6 mg PO BEDTIME PRN PRN Reason: Insomnia Senna (Sennosides 8.6 Mg Tablet) 17.2 mg PO BEDTIME PRN PRN Reason: Constipation Sodium Chloride (0.9 % Sodium Chloride Flush 3 Ml Syringe) 3 ml IVFLUSH QSHIFT [facility] Last Admin: 10/28/21 00:03 Dose: Not Given Documented By: YOHANNES Non-Admin Reason: IV Running Labs CBC & Chem 7: 10/26/21 05:39 10/26/21 05:39 Labs: Laboratory Results - last 24 hr 10/27/21 05:41 TSH 2.26 Microbiology Microbiology Results: Microbiology 10/25/21 18:34 Blood Culture - Preliminary Blood - Venous No growth after 48 hours. 10/25/21 18:25 Blood Culture - Preliminary Blood - Venous No growth after 48 hours. Assessment and Plan (1) Enteritis: Status: Acute Plan 31-year-old female with a past medical history of gastritis, recent meniscal tear surgery, history of pulmonary nodule, asthma, gallbladder polyps presented to the hospital today with a chief complaint of abdominal pain/nausea/vomiting/diarrhea. CT scan showed enteritis. Admitted for further management. Enteritis: CT scan showed long segment of ileum/right side of the colon inflammation; concerning for enteritis. Question IBS AMANDO panel, ESR, CRP, Celiac serology pending. Continue antibiotics and possibly changed to p.o. if she tolerates diet gastroenterology recommendation noted, no stool studies she not offer any stool probable colonscopy tomorrow advanced to low-fat diets History of mild intermittent asthma: Stable. DVT prophylaxis: Lovenox Code status: Full code Need for inaptient: Acute enteritis needing IV Abx possibly home today Quality Stroke Does the patient have a stroke diagnosis?: No VTE Prior VTE?: No VTE Risk Level:: Medical - moderate - high VTE Device Contraindication: Treatment Not Indicated VTE Drug Contraindication: N/A - Med Ordered
[2021-10-28 07:54] VITALS: BP 123/65; PULSE 75; RESP 18; TEMP 36.1; O2SAT 95
[2021-10-28] MEDS: 0.9 % Sodium Chloride Flush 3 ML SYRINGE IVFLUSH (08:37)
[2021-10-28 10:06] LABS: Adenovirus F 40/41 Not Detected (Not Detect.); Astrovirus Not Detected (Not Detect.); Campylobacter Not Detected (Not Detect.); Cryptosporidium Not Detected (Not Detect.); Cyclospora cayetanensis Not Detected (Not Detect.); E. coli EAEC Not Detected (Not Detect.); E. coli EPEC Not Detected (Not Detect.); E. coli ETEC Not Detected (Not Detect.); E. coli STEC Not Detected (Not Detect.); Entamoeba histolytica Not Detected (Not Detect.); Giardia lamblia Not Detected (Not Detect.); Norovirus GI/GII Not Detected (Not Detect.); Plesiomonas shigelloides Not Detected (Not Detect.); Rotavirus A Not Detected (Not Detect.); Salmonella Not Detected (Not Detect.); Sapovirus Not Detected (Not Detect.); Shigella sp./EIEC Not Detected (Not Detect.); Vibrio Not Detected (Not Detect.); Vibrio Cholerae Not Detected (Not Detect.); Yersinia enterocolitica Not Detected (Not Detect.)
[2021-10-28] MEDS: polyethylene glycoL 3350 17 GM POWD.PACK 238 GM PO (14:12)
[2021-10-28 15:27] VITALS: BP 113/67; PULSE 89; RESP 20; TEMP 36.3; O2SAT 96
[2021-10-28] MEDS: Enoxaparin Sodium 40 MG/0.4 ML SYRINGE SUBCUT (21:03)
[2021-10-28] MEDS: cefTRIAXone sodium 1 GM in 0.9 % Sodium Chloride 50 ML IV (22:05)
[2021-10-28 23:47] VITALS: BP 124/77; PULSE 85; RESP 16; TEMP 37.1; O2SAT 98
[2021-10-29] VITALS (11 sets, daily range): BP systolic 101–143; BP diastolic 56–87; PULSE 57–98; RESP 16–20; TEMP 36.3–37.1; O2SAT 96–100
[2021-10-29] MEDS: ondansetron HCL 4 MG/2 ML VIAL IVPUSH (01:43)
[2021-10-29] MEDS: metroNIDAZOLE/NS 500 MG/100 ML PIGGYBACK 100 MG IV ×2 (05:27→19:47)
[2021-10-29] MEDS: 0.9 % Sodium Chloride Flush 3 ML SYRINGE IVFLUSH (07:33)
--- NOTE | 2021-10-29 09:33 | P.PNIM_ITS ---
Subjective Subjective Date of Service: 10/29/21 Interval History: Seen in f/u for diarrhea, enteritis Interval history: continue to improve Review of Systems abd pain no fever diarrhea Physical Exam Vital Signs: Vital Signs: Last Vital Signs Temp 97.6 F 10/29/21 07:54 Pulse 66 10/29/21 07:54 Resp 18 10/29/21 07:54 BP 101/56 L 10/29/21 07:54 Pulse Ox 97 10/29/21 07:54 O2 Del Method 10/29/21 07:54 BMI result Body Mass Index 46.8 Const: Other: General: AO X 3, no acute distress Resp: CTA bilateral CVS: S1,S2,RRR GI: mild mid abd tenderness, no guarding, no rebound Skin: No rash Neuro: motor grossly intact Psych: appropriate affect Objective Data Active Medications Acetaminophen (Acetaminophen 325 Mg Tablet) 650 mg PO Q6H PRN PRN Reason: Pain, Mild (Pain Scale 1-3) Enoxaparin Sodium (Enoxaparin Sodium 40 Mg/0.4 Ml Syringe) 40 mg SUBCUT Q24H [facility] Last Admin: 10/28/21 21:03 Dose: 40 mg Documented By: THUAN Hydromorphone HCl (Hydromorphone Hcl 1 Mg/Ml Syringe) 0.5 mg IVPUSH Q4H PRN; Protocol PRN Reason: Pain, Severe (Pain Scale 7-10) Last Admin: 10/28/21 22:28 Dose: 0.5 mg Documented By: THUAN Metronidazole (Flagyl) 500 mg in 100 mls @ 100 mls/hr IV Q8H [facility] Last Infusion: 10/29/21 06:38 Dose: 0 mls/hr Documented By: THUAN Ceftriaxone Sodium 1 gm/ (Sodium Chloride) 50 mls @ 100 mls/hr IV Q24H [facility] Last Infusion: 10/28/21 23:00 Dose: 0 mls/hr Documented By: THUAN Melatonin (Melatonin 3 Mg Tablet) 6 mg PO BEDTIME PRN PRN Reason: Insomnia Ondansetron HCl (Ondansetron Hcl 4 Mg/2 Ml Vial) 4 mg IVPUSH Q8H PRN PRN Reason: Nausea and Vomiting Last Admin: 10/29/21 01:43 Dose: 4 mg Documented By: HO.RAINAS Senna (Sennosides 8.6 Mg Tablet) 17.2 mg PO BEDTIME PRN PRN Reason: Constipation Sodium Chloride (0.9 % Sodium Chloride Flush 3 Ml Syringe) 3 ml IVFLUSH QSHIFT [facility] Last Admin: 10/29/21 07:33 Dose: 3 ml Documented By: WAYLON Labs CBC & Chem 7: 10/26/21 05:39 10/26/21 05:39 Labs: Laboratory Results - last 24 hr 10/27/21 15:11 Stl C. cayetanensis PCR Not Detected Stool Rotavirus A PCR Not Detected Stl Adenov F 40/41 PCR Not Detected Stool Astrovirus (PCR) Not Detected Stool Campylobacter PCR Not Detected Stool Cryptosporidium PCR Not Detected Stl Sh Tox Pr E STEC PCR Not Detected Stool E coli O157 PCR Not applicable Stl Enterotoxigenic E PCR Not Detected Stool EPEC (PCR) Not Detected Stool EAEC (PCR) Not Detected Stl E. histolytica PCR Not Detected Stool Giardia Lamblia PCR Not Detected Stl P. shigelloides PCR Not Detected Stool Salmonella PCR Not Detected Stool Sapovirus (PCR) Not Detected Stl Shigella/EIEC PCR Not Detected St Y.enterocolitica PCR Not Detected Stool Vibrio (PCR) Not Detected Stl Vibrio cholerae PCR Not Detected Stl Norovirus GI/GII PCR Not Detected Assessment and Plan (1) Enteritis: Status: Acute Plan 31-year-old female with a past medical history of gastritis, recent meniscal tear surgery, history of pulmonary nodule, asthma, gallbladder polyps presented to the hospital today with a chief complaint of abdominal pain/nausea/vo miting/diarrhea. CT scan showed enteritis. Admitted for further management. Enteritis: CT scan showed long segment of ileum/right side of the colon inflammation; concerning for enteritis. Question IBS AMANDO panel, ESR, CRP, Celiac serology pending. Continue IV abx for after colonosocpy today advamce diet after colonoscopy History of mild intermittent asthma: Stable. DVT prophylaxis: Lovenox Code status: Full code Need for inaptient: Acute enteritis needing IV Abx and colonocopy today possibly home today Quality Stroke Does the patient have a stroke diagnosis?: No VTE Prior VTE?: No VTE Risk Level:: Medical - moderate - high VTE Device Contraindication: Treatment Not Indicated VTE Drug Contraindication: N/A - Med Ordered
--- NOTE | 2021-10-29 09:39 | MHC.CDI.CONC ---
CDI Concurrent Query Documentation Clarification: PHYSICIAN'S DOCUMENTATION REQUEST Date of Query: 10/29/21 0944 Patient Name: Lissa Moreno Admit Date: 10/25/21 Dear Doctor, A review of the medical record indicates additional documentation may be needed. Please review below and update the documentation accordingly. Clinical Indicators: Risk Factors/Clinical Indicators/Treatments Body mass index: 46.8 5' in height, GI 10/26 notes patient has had weight gain from 145 lbs to 290 lbs over last 6-12 months. If possible, please provide an associated diagnosis related to the abnormal BMI, such as: For a BMI >= 40: Overweight Obesity Due to excess calories Drug induced Due to other cause Severe or Morbid Obesity With alveolar hypoventilation Without alveolar hypoventilation Or: BMI is not significant Other (please specify) Unable to determine Use of terms such as suspected, likely, concern for, or probable (associated with a specific diagnosis that is being evaluated, monitored, or treated as if it exists) are acceptable and can be coded in the inpatient setting, when documented at the time of discharge. Thank you, Kelsie Moore [facility], [facility] Extension: [phone] Please use your independent medical judgment in providing your response. THIS QUERY IS PART OF THE PERMANENT MEDICAL RECORD
[2021-10-29] MEDS: HYDROmorphone HCl 1 MG/ML SYRINGE 0.5 MG IVPUSH ×2 (11:21→21:58)
--- NOTE | 2021-10-29 13:45 | HO.ANESPROP2 ---
[facility] Active Problems Active Problems: All Active Problems (Updated 10/26/21 @ 18:08 by Gerald Seymour MD) Chronic diarrhea (Acute) Enteritis (Acute) S/P medial meniscal repair (Acute) Tears of meniscus and ACL of left knee (Acute) Tear of medial meniscus of left knee (Acute) Encounter for IUD removal (Acute) Pulmonary nodule, right (Acute) Bronchitis (Acute) Asthma (Acute) Past Medical History Medical History Asthma Bronchitis Pulmonary nodule, right Family History Family history of problems with anesthesia: No Surgical History Surgical History History of tonsillectomy Hx of adenoidectomy Hx of section History of Problems with Anesthesia: No Social History Social History Household Members: Children Housing: Apartment Do you presently have visiting nurse or other home services: No Alcohol intake: current Alcohol intake frequency: does not drink Patient Tobacco Use Status: Former Tobacco user Quit Date: 3 years ago Substance Use Type: Marijuana service: No Current occupational status: employed 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 handed Meds Allergies Allergy/AdvReac Type Severity Reaction Status Date / Time oxycodone [OXYCODONE] Allergy Unknown ITCHING, Verified 07/08/21 12:56 NAUSEA, HOT Active Medications: Current Medications Acetaminophen (Acetaminophen 325 Mg Tablet) 650 mg PO Q6H PRN PRN Reason: Pain, Mild (Pain Scale 1-3) Enoxaparin Sodium (Enoxaparin Sodium 40 Mg/0.4 Ml Syringe) 40 mg SUBCUT Q24H [facility] Last Admin: 10/28/21 21:03 Dose: 40 mg Hydromorphone HCl (Hydromorphone Hcl 1 Mg/Ml Syringe) 0.5 mg IVPUSH Q4H PRN; Protocol PRN Reason: Pain, Severe (Pain Scale 7-10) Last Admin: 10/29/21 11:21 Dose: 0.5 mg Metronidazole (Flagyl) 500 mg in 100 mls @ 100 mls/hr IV Q8H [facility] Last Infusion: 10/29/21 06:38 Dose: Infused Ceftriaxone Sodium 1 gm/ (Sodium Chloride) 50 mls @ 100 mls/hr IV Q24H [facility] Last Infusion: 10/28/21 23:00 Dose: Infused Lactated Ringer's (Lr) 1,000 mls @ 50 mls/hr IVCONT .Q20H [facility] Melatonin (Melatonin 3 Mg Tablet) 6 mg PO BEDTIME PRN PRN Reason: Insomnia Ondansetron HCl (Ondansetron Hcl 4 Mg/2 Ml Vial) 4 mg IVPUSH Q8H PRN PRN Reason: Nausea and Vomiting Last Admin: 10/29/21 01:43 Dose: 4 mg Senna (Sennosides 8.6 Mg Tablet) 17.2 mg PO BEDTIME PRN PRN Reason: Constipation Sodium Chloride (0.9 % Sodium Chloride Flush 3 Ml Syringe) 3 ml IVFLUSH QSHIFT [facility] Last Admin: 10/29/21 07:33 Dose: 3 ml Exam Exam Date and Time: October 29, 2021 1345 Height,Weight and Vital Signs: Height 5 ft Weight 108.862 kg Last Vital Signs Temp 97.6 F 10/29/21 07:54 Pulse 66 10/29/21 07:54 Resp 18 10/29/21 07:54 BP 101/56 L 10/29/21 07:54 Pulse Ox 97 10/29/21 07:54 O2 Del Method 10/29/21 07:54 Pertinent Lab Results Pertinent Lab Results: Laboratory Tests 10/25/21 10/25/21 10/25/21 13:40 13:40 13:40 WBC 17.7 H RBC 4.72 Hgb 14.1 Hct 42.5 MCV 90.0 MCH 29.9 MCHC 33.2 RDW 12.2 Plt Count 258 MPV 10.3 Immature Gran % (Auto) 0.4 Neut % (Auto) 89.2 H Lymph % (Auto) 6.4 L [place] % (Auto) 3.6 Eos % (Auto) 0.3 Baso % (Auto) 0.1 Lymph # (Auto) 1.1 L [place] # (Auto) 0.6 Eos # (Auto) 0.1 Baso # (Auto) 0.0 Abs Immat Gran (auto) 0.07 H Absolute Neuts (auto) 15.8 H Absolute Nucleated RBC 0.000 Nucleated RBC % (auto) 0.0 ESR Sodium 138 Potassium 4.3 Chloride 109 H Carbon Dioxide 21 L Anion Gap 12 BUN 9 Creatinine 0.81 Estim Creat Clear Calc 112.5 Estimated GFR > 60 Random Glucose 103 Lactic Acid Calcium 9.0 Total Bilirubin 0.5 AST 17 ALT 28 Alkaline Phosphatase 77 C-Reactive Protein 0.41 Total Protein 7.4 Albumin 4.4 Lipase 61 TSH Beta HCG, Quant < 2 Urine Color Urine Appearance Urine pH Ur Specific [place] Urine Protein Urine Glucose (UA) Urine Ketones Urine Blood Urine Nitrite Ur Leukocyte Esterase Urine RBC Urine WBC Ur Squamous Epith Cells Urine Bacteria Stl C. cayetanensis PCR Stool Rotavirus A PCR Stl Adenov F 40/ PCR Stool Astrovirus (PCR) Stool Campylobacter PCR Stool Cryptosporidium PCR Stl Sh Tox Pr E STEC PCR Stool E coli O157 PCR Stl Enterotoxigenic E PCR Stool EPEC (PCR) Stool EAEC (PCR) Stl E. histolytica PCR Stool Giardia Lamblia PCR Stl P. shigelloides PCR Stool Salmonella PCR Stool Sapovirus (PCR) Stl Shigella/EIEC PCR St Y.enterocolitica PCR Stool Vibrio (PCR) Stl Vibrio cholerae PCR Stl Norovirus GI/GII PCR Ethyl Alcohol < 10 COVID-19 ([place]) Negative COVID-19 Clin Com See Note 10/25/21 10/25/21 10/25/21 13:40 17:21 18:25 WBC RBC Hgb Hct MCV MCH MCHC RDW Plt Count MPV Immature Gran % (Auto) Neut % (Auto) Lymph % (Auto) [place] % (Auto) Eos % (Auto) Baso % (Auto) Lymph # (Auto) [place] # (Auto) Eos # (Auto) Baso # (Auto) Abs Immat Gran (auto) Absolute Neuts (auto) Absolute Nucleated RBC Nucleated RBC % (auto) ESR 26 H Sodium Potassium Chloride Carbon Dioxide Anion Gap BUN Creatinine Estim Creat Clear Calc Estimated GFR Random Glucose Lactic Acid 1.1 Calcium Total Bilirubin AST ALT Alkaline Phosphatase C-Reactive Protein Total Protein Albumin Lipase TSH Beta HCG, Quant Urine Color YELLOW Urine Appearance CLEAR Urine pH 5.5 Ur Specific [place] 1.015 Urine Protein NEG Urine Glucose (UA) NEG Urine Ketones NEG Urine Blood TRACE Urine Nitrite NEG Ur Leukocyte Esterase NEG Urine RBC 1-4 Urine WBC 0-2 Ur Squamous Epith Cells 3+ Urine Bacteria TRACE Stl C. cayetanensis PCR Stool Rotavirus A PCR Stl Adenov F 40/ PCR Stool Astrovirus (PCR) Stool Campylobacter PCR Stool Cryptosporidium PCR Stl Sh Tox Pr E STEC PCR Stool E coli O157 PCR Stl Enterotoxigenic E PCR Stool EPEC (PCR) Stool EAEC (PCR) Stl E. histolytica PCR Stool Giardia Lamblia PCR Stl P. shigelloides PCR Stool Salmonella PCR Stool Sapovirus (PCR) Stl Shigella/EIEC PCR St Y.enterocolitica PCR Stool Vibrio (PCR) Stl Vibrio cholerae PCR Stl Norovirus GI/GII PCR Ethyl Alcohol COVID-19 ([place]) COVID-19 Clin Com 10/26/21 10/26/21 10/26/21 05:39 05:39 05:39 WBC 8.4 RBC 3.87 L Hgb 11.8 L Hct 35.5 L MCV 91.7 MCH 30.5 MCHC 33.2 RDW 12.2 Plt Count 205 MPV 10.9 Immature Gran % (Auto) 0.4 Neut % (Auto) 71.7 Lymph % (Auto) 19.7 L [place] % (Auto) 7.2 Eos % (Auto) 0.8 Baso % (Auto) 0.2 Lymph # (Auto) 1.7 [place] # (Auto) 0.6 Eos # (Auto) 0.1 Baso # (Auto) 0.0 Abs Immat Gran (auto) 0.03 Absolute Neuts (auto) 6.0 Absolute Nucleated RBC 0.000 Nucleated RBC % (auto) 0.0 ESR 23 H Sodium 136 Potassium 4.2 Chloride 109 H Carbon Dioxide 22 Anion Gap 9 L BUN 6 L Creatinine 0.73 Estim Creat Clear Calc 124.9 Estimated GFR > 60 Random Glucose 99 Lactic Acid Calcium 8.1 L D Total Bilirubin AST ALT Alkaline Phosphatase C-Reactive Protein 2.10 H Total Protein Albumin Lipase TSH Beta HCG, Quant Urine Color Urine Appearance Urine pH Ur Specific [place] Urine Protein Urine Glucose (UA) Urine Ketones Urine Blood Urine Nitrite Ur Leukocyte Esterase Urine RBC Urine WBC Ur Squamous Epith Cells Urine Bacteria Stl C. cayetanensis PCR Stool Rotavirus A PCR Stl Adenov F 40/41 PCR Stool Astrovirus (PCR) Stool Campylobacter PCR Stool Cryptosporidium PCR Stl Sh Tox Pr E STEC PCR Stool E coli O157 PCR Stl Enterotoxigenic E PCR Stool EPEC (PCR) Stool EAEC (PCR) Stl E. histolytica PCR Stool Giardia Lamblia PCR Stl P. shigelloides PCR Stool Salmonella PCR Stool Sapovirus (PCR) Stl Shigella/EIEC PCR St Y.enterocolitica PCR Stool Vibrio (PCR) Stl Vibrio cholerae PCR Stl Norovirus GI/GII PCR Ethyl Alcohol COVID-19 ([place]) COVID-19 Clin Com 10/27/21 10/27/21 05:41 15:11 WBC RBC Hgb Hct MCV MCH MCHC RDW Plt Count MPV Immature Gran % (Auto) Neut % (Auto) Lymph % (Auto) [place] % (Auto) Eos % (Auto) Baso % (Auto) Lymph # (Auto) [place] # (Auto) Eos # (Auto) Baso # (Auto) Abs Immat Gran (auto) Absolute Neuts (auto) Absolute Nucleated RBC Nucleated RBC % (auto) ESR Sodium Potassium Chloride Carbon Dioxide Anion Gap BUN Creatinine Estim Creat Clear Calc Estimated GFR Random Glucose Lactic Acid Calcium Total Bilirubin AST ALT Alkaline Phosphatase C-Reactive Protein Total Protein Albumin Lipase TSH 2.26 Beta HCG, Quant Urine Color Urine Appearance Urine pH Ur Specific [place] Urine Protein Urine Glucose (UA) Urine Ketones Urine Blood Urine Nitrite Ur Leukocyte Esterase Urine RBC Urine WBC Ur Squamous Epith Cells Urine Bacteria Stl C. cayetanensis PCR Not Detected Stool Rotavirus A PCR Not Detected Stl Adenov F 40/41 PCR Not Detected Stool Astrovirus (PCR) Not Detected Stool Campylobacter PCR Not Detected Stool Cryptosporidium PCR Not Detected Stl Sh Tox Pr E STEC PCR Not Detected Stool E coli O157 PCR Not applicable Stl Enterotoxigenic E PCR Not Detected Stool EPEC (PCR) Not Detected Stool EAEC (PCR) Not Detected Stl E. histolytica PCR Not Detected Stool Giardia Lamblia PCR Not Detected Stl P. shigelloides PCR Not Detected Stool Salmonella PCR Not Detected Stool Sapovirus (PCR) Not Detected Stl Shigella/EIEC PCR Not Detected St Y.enterocolitica PCR Not Detected Stool Vibrio (PCR) Not Detected Stl Vibrio cholerae PCR Not Detected Stl Norovirus GI/GII PCR Not Detected Ethyl Alcohol COVID-19 ([place]) COVID-19 Clin Com Airway Mallampati Class: II (Couple missing nothing loose) TM Dist: >3cm Neck ROM: Full Heart: rrr Lungs: cta Assessment and Plan Assessment Anesthesia Assessment: Anesthesia Plan Discussed and Chart Reviewed Final Anesthetic Review Family History of Problems with Anesthesia: No History of Problems with Anesthesia: No NPO: Yes ASA Class: III Final Preanesthetic Review: No Changes in Pt Med Stat, Meds/Allgs Chart Reviewed and Consent Obtained/Reviewed Patient Risk: Intermediate Procedure Risk: Intermediate Anesthetic Plan Anesthetic Plan: MAC: Disposition: Standard PACU
[2021-10-29] MEDS: Lactated Ringers 1,000 ML 50 ML IVCONT (14:12)
--- NOTE | 2021-10-29 14:17 | P.BOP_ITS ---
Brief Operative Note Date of Service: 10/29/21 Pre-op diagnosis: GERD, enteritis Post-op diagnosis: other (Esophagitis, gastritis, colon polyps, diverticulosis, hemorrhoids) Procedure: FLEXIBLE TRANSORAL UPPER GASTROINTESTINAL ENDOSCOPY WITH BIOPSIES AND COLONOSCOPY TILL CECUM WITH BIOPSIES UPPER ENDOSCOPY Consent: Indications for the procedure and potential complications of bleeding, perforation, reaction to medications and missed diagnosis were discussed with the patient and informed consent was obtained. Instrument: Olympus GIF H 190 mid size upper endoscope Monitoring: Vital signs and clinical assessment, continuous EKG monitoring, Pulse oximetry, Carbon Dioxide monitoring and blood pressure monitoring were done throughout the procedure. Procedure: The patient was placed in the left lateral decubitis position and pre-procedure medications were administered and a bite block was placed. The endoscope was inserted into the mouth and advanced under direct vision to the third part of duodenum. A careful inspection was made as the upper endoscope was withdrawn including a retroflexed examination of the proximal stomach; Findings and interventions are described below. Findings: Larynx: Normal Esophagus: GE junction at 38 cms. No esophagitis or Cain's. Stomach: Mild gastric erythema. Biopsies were obtained. Grade 2 flap valve on retroflexed examination of the cardia. Duodenum: Normal bulb and descending duodenum Intervention: Biopsies as noted above COLONOSCOPY PROCEDURE NOTE Consent: Indications for the procedure and potential complications of bleeding, perforation, reaction to medications and missed diagnosis were discussed with the patient and informed consent was obtained. Instrument: Olympus PCF H 190 L variable stiffness pediatric colonoscope Monitoring: Vital signs and clinical assessment, intermittent blood pressure monitoring, continuous EKG monitoring, Pulse oximetry and Carbon Dioxide monitoring were done throughout the procedure. Colon withdrawl time was 40 minutes. Procedure: The patient was placed in the left lateral decubitis position and pre-procedure medications were administered. After a digital rectal examination of the ano-rectum, the video colonoscope was inserted into the rectum and advanced through the colon to the cecum. The colonoscope was slowly withdrawn in a retrograde panoramic fashion and the colon mucosa was carefully examined including a retroflexed view of the rectum. Findings and interventions are described below. Procedure Difficulty: : Pt was placed in the supine position to intubate the terminal ileum Findings: Terminal Ileum: Distal 15 cms was examined and appeared normal - random biopsies were obtained. Cecum: Normal Ascending Colon: A 3-4 mm sessile polyp in mid AC removed with a cold bx. Transverse Colon: Normal Descending Colon: Normal Sigmoid Colon: A 6-7 mm diminutive appearing polyp - biopsied. Moderate diverticulosis Rectum: Normal Ano-rectum: Small internal hemorrhoids Colon preparation: Good after some irrigation Impression and Post Procedure Diagnosis: Endoscopy Findings: ESOPHAGUS: A few 1 cms chronic appearing erosions at GE junction STOMACH: Antral gastritis with a few 4-5 mm antral erosions DUODENUM: Normal Colonoscopy Findings: Two small polyps removed Random biopsies were obtained from the TI, right and left colon Moderate diverticulosis seen in the sigmoid colon Small hemorrhoids on retroflexed exam. Plan: Await pathology results. OK to advance diet as tolerated. Repeat Colonoscopy interval based on path results - in 3-5 years if polyps are adenomatous and 10 years if polyps are hyperplastic. Above findings were reviewed with the patient. Surgeon: Gerald Seymour MD Anesthesia: MAC (Dr Walker) Was an Director Of Maternity Services used for this Procedure?: Yes Director Of Maternity Services: Charlene Obregon Estimated blood loss (mL): 0 Pathology: other (A. small bowel bxs, R/O Crohn's disease and celiac disease B. gastric antrum bxs, R/O H. pylori C. Terminal Ileum R/O Crohn's Disease D. Right Colon BX R/O Crohn's Disease E. Ascending Colon Polyp ) Condition: stable Disposition: PACU
--- NOTE | 2021-10-29 14:17 | MHC.SHP ---
Pre-Procedural Eval Section A Date of Service: 10/29/21 The patient is an INPATIENT: Yes Changes since office visit: Yes New Medical Problems, Yes Changes in Medication and Yes Patient answered all questions; No Cold of Flu in the past 2 weeks The History & Physical has been completed within 30 days and I have reviewed it.: Yes Section B Chief Complaint: enteritis Allergies: Allergies Allergy/AdvReac Type Severity Reaction Status Date / Time oxycodone [OXYCODONE] Allergy Unknown ITCHING, Verified 07/08/21 12:56 NAUSEA, HOT Plan I have reviewed the history and physical and performed a pertinent physical examination on my patient. No changes have occurred unless specified.
--- NOTE | 2021-10-29 14:22 | PC.NURSE ---
iv from floor was causing patient extreme pain when flushed. infiltration noticed around iv. this iv was removed and new insertion was completed in [facility] by dr. salazar.
[2021-10-29 14:32] LABS: Immunoglobulin A 182 mg/dL (47-310)
[2021-10-29 15:52] LABS: Anti Nuclear Antibody Screen NEGATIVE (NEGATIVE)
--- NOTE | 2021-10-29 15:55 | P.OP_ITS ---
Operative Note Operative Note Date of Service: 10/29/21 Narrative: Pre-op diagnosis: GERD, enteritis Post-op diagnosis:?other (Esophagitis, gastritis, colon polyps, diverticulosis, hemorrhoids) Procedure: FLEXIBLE TRANSORAL UPPER GASTROINTESTINAL ENDOSCOPY WITH BIOPSIES AND COLONOSCOPY TILL CECUM WITH BIOPSIES UPPER ENDOSCOPY Consent:?Indications for the procedure and potential complications of bleeding, perforation, reaction to medications and missed diagnosis were discussed with the patient and informed consent was obtained. Instrument:?Olympus GIF H 190 mid size upper endoscope Monitoring: Vital signs and clinical assessment, continuous EKG monitoring, Pulse oximetry, Carbon Dioxide monitoring and blood pressure monitoring were done throughout the procedure. Procedure:?The patient was placed in the left lateral decubitis position and pre-procedure medications were administered and a bite block was placed. The endoscope was inserted into the mouth and advanced under direct vision to the third part of duodenum. A careful inspection was made as the upper endoscope was withdrawn including a retroflexed examination of the proximal stomach; Findings and interventions are described below. Findings: Larynx:? Normal Esophagus:?GE junction at 38 cms. No esophagitis or Cain's. Stomach:?Mild gastric erythema. Biopsies were obtained. Grade 2 flap valve on retroflexed examination of the cardia. Duodenum:?Normal bulb and descending duodenum Intervention:?Biopsies as noted above COLONOSCOPY PROCEDURE NOTE Consent:?Indications for the procedure and potential complications of bleeding, perforation, reaction to medications and missed diagnosis were discussed with the patient and informed consent was obtained. Instrument:?Olympus PCF H 190 L variable stiffness pediatric colonoscope Monitoring:?Vital signs and clinical assessment, intermittent blood pressure monitoring, continuous EKG monitoring, Pulse oximetry and Carbon Dioxide monitoring were done throughout the procedure. Colon withdrawl time was 40 minutes. Procedure:?The patient was placed in the left lateral decubitis position and pre-procedure medications were administered. After a digital rectal examination of the ano-rectum, the video colonoscope was inserted into the rectum and advanced through the colon to the cecum. The colonoscope was slowly withdrawn in a retrograde panoramic fashion and the colon mucosa was carefully examined including a retroflexed view of the rectum. Findings and interventions are described below. Procedure Difficulty:?: Pt was placed in the supine position to intubate the terminal ileum Findings: Terminal Ileum: Distal 15 cms was examined and appeared normal - random biopsies were obtained. Cecum:? Normal Ascending Colon:??A 3-4 mm sessile polyp in mid AC removed with a cold bx. Transverse Colon:??Normal Descending Colon:? Normal Sigmoid Colon:? A 6-7 mm diminutive appearing polyp - biopsied. Moderate diverticulosis Rectum:??Normal Ano-rectum:??Small internal hemorrhoids Colon preparation:? Good after some irrigation Impression and Post Procedure Diagnosis: Endoscopy Findings: ESOPHAGUS: A few 1 cms chronic appearing erosions at GE junction STOMACH: Antral gastritis with a few 4-5 mm antral erosions DUODENUM: Normal Colonoscopy Findings: Two small polyps removed Random biopsies were obtained from the TI, right and left colon Moderate diverticulosis seen in the sigmoid colon Small hemorrhoids on retroflexed exam. Plan: Await pathology results. OK to advance diet as tolerated. Repeat Colonoscopy interval based on path results - in 3-5 years if polyps are adenomatous and 10 years if polyps are hyperplastic. Above findings were reviewed with the patient. Surgeon: Gerald Seymour MD Anesthesia:?MAC (Dr Walker) Was an Floor Polisher used for this Procedure?:?Yes Floor Polisher:?Charlene Obregon Estimated blood loss (mL):?0 Pathology:?other (A. small bowel bxs, R/O Crohn's disease and celiac disease? B. gastric antrum bxs, R/O H. pylori? C. Terminal Ileum R/O Crohn's Disease? D. Right Colon BX R/O Crohn's Disease? E. Ascending Colon Polyp? ? ) Condition:?stable Disposition:?PACU
[2021-10-29] MEDS: Enoxaparin Sodium 40 MG/0.4 ML SYRINGE SUBCUT (19:46)
[2021-10-29] MEDS: cefTRIAXone sodium 1 GM in 0.9 % Sodium Chloride 50 ML IV (22:01)
[2021-10-30] VITALS (9 sets, daily range): BP systolic 114–135; BP diastolic 58–87; PULSE 61–110; RESP 14–17; TEMP 36–36.7; O2SAT 94–99
[2021-10-30] MEDS: HYDROmorphone HCl 1 MG/ML SYRINGE 0.5 MG IVPUSH ×4 (04:04→21:00)
[2021-10-30] MEDS: metroNIDAZOLE/NS 500 MG/100 ML PIGGYBACK 100 MG IV ×3 (04:04→20:59)
--- NOTE | 2021-10-30 07:14 | HO.POSTANES ---
Post Anesthesia Evaluation Post Anesthesia Evaluation Vital Signs: Vital Signs Temp Pulse Resp BP Pulse Ox O2 Del Method 10/30/21 04:00 97.6 F 71 17 120/63 96 Room Air 10/30/21 00:00 97.4 F 83 17 115/74 97 Room Air 10/29/21 23:28 97.9 F 92 17 107/68 96 Room Air Anesthesia: Monitored Mental Status: Awake Pain Control: Satisfactory Nausea/Vomiting: None Hydration: Adequate Anesthesia-Related Issues: No Anes. Related Issues
[2021-10-30] MEDS: 0.9 % Sodium Chloride Flush 3 ML SYRINGE IVFLUSH (08:40)
[2021-10-30] MEDS: Lactated Ringers 1,000 ML 50 ML IVCONT (10:53)
[2021-10-30] MEDS: Cyclobenzaprine HCl 5 MG TABLET PO (12:13)
[2021-10-30] MEDS: Lidocaine 4 % Patch ADH..PATCH 1 PATCH TRANSDERMA (12:15)
[2021-10-30 12:17] LABS: Transglutaminase IgA <1.0 U/mL
--- NOTE | 2021-10-30 13:27 | HO.PM.IMPN ---
Subjective Subjective Date of Service: 10/30/21 Interval History: genwealised body soarness Review of Systems denies Any nausea vomiting, has abdominal soreness , also generalized body soreness denies any chest pain or shortness of breath or fever or chills. Physical Exam Vital Signs: Vital Signs: Last Vital Signs Temp 98.0 F 10/30/21 11:36 Pulse 61 10/30/21 11:36 Resp 14 10/30/21 11:36 BP 120/58 L 10/30/21 11:36 Pulse Ox 94 10/30/21 11:36 O2 Del Method 10/30/21 11:36 O2 Flow Rate 4 10/29/21 16:18 BMI result Body Mass Index 46.8 General: AO X 3, no acute distress Resp:? CTA bilateral CVS: S1,S2,RRR GI:still abd tenderness, no guarding, no rebound Skin: No rash Neuro:? motor grossly intact Psych: appropriate affect Const: Other: General: AO X 3, no acute distress Resp: CTA bilateral CVS: S1,S2,RRR GI: mild mid abd tenderness, no guarding, no rebound Skin: No rash Neuro: motor grossly intact Psych: appropriate affect Objective Data Active Medications Acetaminophen (Acetaminophen 325 Mg Tablet) 650 mg PO Q6H PRN PRN Reason: Pain, Mild (Pain Scale 1-3) Enoxaparin Sodium (Enoxaparin Sodium 40 Mg/0.4 Ml Syringe) 40 mg SUBCUT Q24H [facility] Last Admin: 10/29/21 19:46 Dose: 40 mg Documented By: THUAN Hydromorphone HCl (Hydromorphone Hcl 1 Mg/Ml Syringe) 0.5 mg IVPUSH Q4H PRN; Protocol PRN Reason: Pain, Severe (Pain Scale 7-10) Last Admin: 10/30/21 08:37 Dose: 0.5 mg Documented By: WAYLON Metronidazole (Flagyl) 500 mg in 100 mls @ 100 mls/hr IV Q8H [facility] Last Admin: 10/30/21 12:17 Dose: 100 mls/hr Documented By: WAYLON Ceftriaxone Sodium 1 gm/ (Sodium Chloride) 50 mls @ 100 mls/hr IV Q24H [facility] Last Infusion: 10/29/21 22:45 Dose: 0 mls/hr Documented By: THUAN Lactated Ringer's (Lr) 1,000 mls @ 50 mls/hr IVCONT .Q20H [facility] Last Admin: 10/30/21 10:53 Dose: 50 mls/hr Documented By: WAYLON Lidocaine (Lidocaine 4 % Patch Adh..Patch) 1 patch TRANSDERMA DAILY [facility]; Protocol Last Admin: 10/30/21 12:15 Dose: 1 patch Documented By: WAYLON Melatonin (Melatonin 3 Mg Tablet) 6 mg PO BEDTIME PRN PRN Reason: Insomnia Ondansetron HCl (Ondansetron Hcl 4 Mg/2 Ml Vial) 4 mg IVPUSH Q8H PRN PRN Reason: Nausea and Vomiting Last Admin: 10/29/21 01:43 Dose: 4 mg Documented By: THUAN Senna (Sennosides 8.6 Mg Tablet) 17.2 mg PO BEDTIME PRN PRN Reason: Constipation Sodium Chloride (0.9 % Sodium Chloride Flush 3 Ml Syringe) 3 ml IVFLUSH QSHIFT [facility] Last Admin: 10/30/21 08:40 Dose: 3 ml Documented By: WAYLON Labs CBC & Chem 7: 10/26/21 05:39 10/26/21 05:39 Labs: Laboratory Results - last 24 hr 10/26/21 10/27/21 10/27/21 05:39 05:41 17:25 IgA 182 AMANDO Screen NEGATIVE AMANDO Titer TNP AMANDO Titer 2 TNP AMANDO Titer 3 TNP AMANDO Pattern TNP AMANDO Pattern 2 TNP AMANDO Pattern 3 TNP Tiss Transglutamin IgA <1.0 Assessment and Plan (1) Enteritis: Status: Acute Plan 31-year-old female with a past medical history of gastritis, recent meniscal tear surgery, history of pulmonary nodule, asthma, gallbladder polyps presented to the hospital today with a chief complaint of abdominal pain/nausea/vomiting/diarrhea.? CT scan showed enteritis.? Admitted for further management.? Enteritis: CT scan showed long segment of ileum/right side of the colon inflammation; concerning for enteritis. Question IBS ?AMANDO panel, ESR, CRP, Celiac serology pending. Continue IV abx s/p egd and colonoscopy:?A 3-4 mm sessile polyp in mid AC removed with a cold bx. terminal Ilium biopsy also obtained. egd:Mild gastric erythema. Biopsies were obtained. Grade 2 flap valve on retroflexed examination of the cardia. possible body soarness post anethesia/procedure -continue to moniter ,pain managemnt with morphine. History of mild intermittent asthma: Stable. DVT prophylaxis:? Lovenox Need for inaptient: Acute enteritis needing IV Abx Quality Stroke Does the patient have a stroke diagnosis?: No VTE Prior VTE?: No VTE Risk Level:: Medical - moderate - high VTE Device Contraindication: Treatment Not Indicated VTE Drug Contraindication: N/A - Med Ordered
[2021-10-30] MEDS: Omeprazole 20 MG CAPSULE.DR PO (14:28)
[2021-10-30 14:52] LABS: Hematocrit 35.9 % (37.0-47.0); Hemoglobin 12.2 g/dl (12.0-16.0); Mean Corpuscular Hemoglobin 30.4 pg (27.0-33.0); Mean Corpuscular Volume 89.5 fL (80.0-98.0); Mean Platelet Volume 10.2 fL (9.4-12.3); Platelet Count 226 X10*3/uL (160-400); Red Blood Count 4.01 X10*6/uL (4.20-5.50); White Blood Count 6.6 X10*3/uL (4.8-10.8)
[2021-10-30 15:49] LABS: Anion Gap 11 (12-20); Blood Urea Nitrogen 8 mg/dL (9-16); C Reactive Protein 0.55 mg/dL (< or = 0.50); Calcium 9.2 mg/dL (8.4-10.2); Carbon Dioxide 24 mmol/L (22-29); Chloride 108 mmol/L (96-108); Estimated Glomerular Filt Rate > 60; Glucose Random 115 mg/dL (60-115); Potassium 4.1 mmol/L (3.3-5.1); Sodium 139 mmol/L (135-145)
[2021-10-30] MEDS: Enoxaparin Sodium 40 MG/0.4 ML SYRINGE SUBCUT (19:43)
[2021-10-30] MEDS: cefTRIAXone sodium 1 GM in 0.9 % Sodium Chloride 50 ML IV (22:06)
[2021-10-31] MEDS: HYDROmorphone HCl 1 MG/ML SYRINGE 0.5 MG IVPUSH ×3 (02:16→11:36)
[2021-10-31 03:49] VITALS: BP 121/70; PULSE 61; RESP 16; TEMP 36.6; O2SAT 96
[2021-10-31] MEDS: Omeprazole 20 MG CAPSULE.DR PO (05:34)
[2021-10-31] MEDS: metroNIDAZOLE/NS 500 MG/100 ML PIGGYBACK 100 MG IV (05:34)
[2021-10-31 08:00] VITALS: BP 120/79; PULSE 62; RESP 18; TEMP 36.4; O2SAT 98
[2021-10-31] MEDS: Lactated Ringers 1,000 ML 80 ML IVCONT (08:47)
[2021-10-31] MEDS: Lidocaine 4 % Patch ADH..PATCH 1 PATCH TRANSDERMA (08:47)
[2021-10-31] MEDS: 0.9 % Sodium Chloride Flush 3 ML SYRINGE IVFLUSH (08:48)
[2021-10-31] MEDS: ondansetron HCL 4 MG/2 ML VIAL IVPUSH (09:43)
--- NOTE | 2021-10-31 11:39 | P.DS_ITS ---
DS: Providers Provider Date of Service: 10/31/21 Date of admission: 10/25/21 19:38 Primary care physician: Rudi Charles MD Consults: 10/25/21 19:37 Consult to Gastroenterology Routine Consulting Provider: Gerald Seymour Reason for consultation: Enetritis; ?ileitis; ?IBS DS: Diagnosis Discharge Diagnosis (1) Enteritis: Status: Acute DS: Summary Hospital Course Hospital Course: 31-year-old female with the no significant past medical history except for gastritis, history of gallbladder polyps in the past presented to the hospital today with a chief complaint of abdominal pain.? Patient reported that for the past 1 day she noted to have abdominal cramping worse on the right side; and today she had multiple episodes of nausea vomiting and diarrhea.? Patient reports she has chronic diarrhea but for today she has increased episodes of diarrhea.? Denies any blood in the stool.? Denies any food poisoning or eating seafood.? Patient denies any blood in the stool.? Denies any change in her abdominal pain with bowel habits.? Review of all other systems is negative except mentioned above ER course: Per ER team patient noted right-sided abdominal pain; CT scan showed enteritis.? Admitted to the hospital for further management.? Patient was given empiric antibiotics. Hospital course: patient was admitted for abdominal pain - abdominal CT showed enteritis- started on IV antibiotics, workup including ESR and CRP was slightly elevated, had leukocytosis: subsequently patient was seen by GI as well as had EGD and colonoscopy: which the only showed polyp, some gastric erythema, in addition to that patient had multiple biopsies taken. immunological testing including IgA, AMANDO seems fine, celiac disease test pending. patient is to follow-up with PCP and GI out patiently for above testing as well as further management. patient seems to be improved with supportive care including hydration and antibiotics Tolerating diet, abdominal pain improved. Above management discussed with the patient in detail length she understand and in agreement with the above plan, time spent 50 minutes and 50% time spent on counseling. Significant findings: As above. Procedures performed: None. Treatment and response: As above. Complications: None. Time Spent with Patient Time attestation: Total time spent providing and/or coordinating discharge services: Discharge coordination time: Greater than 30 minutes Quality: Safe Use of Opioids Does Pt have an Active Cancer Diagnosis on the Problem List?: No Quality: Stroke Does the patient have a stroke diagnosis?: No Physical Exam Vital Signs: Vital Signs: Last Vital Signs Temp 97.5 F 10/31/21 08:00 Pulse 62 10/31/21 08:00 Resp 18 10/31/21 08:00 BP 120/79 10/31/21 08:00 Pulse Ox 98 10/31/21 08:00 O2 Del Method 10/31/21 08:00 O2 Flow Rate 4 10/29/21 16:18 BMI result Body Mass Index 46.8 Gen: Appears be in no acute distress HEENT:? NCAT,? Moist mucosa. Pulmonary:? Vesicular breath sounds, fair air entry CVS:? Normal S1-S2 Abdomen: BS+, Soft, nd,nt, no guarding no rigidity. Extremities:? Warm well perfused Neuro:? Alert and awake. DS: Data Data Completed and Pending Pending studies at discharge: Pending at discharge 10/29/21 14:40 Surgical [PTH] Routine Labs on day of discharge: Laboratory Results - last 24 hr 10/27/21 10/30/21 10/30/21 17:25 14:42 14:42 WBC 6.6 RBC 4.01 L Hgb 12.2 Hct 35.9 L MCV 89.5 MCH 30.4 MCHC 34.0 RDW 12.0 Plt Count 226 MPV 10.2 Absolute Nucleated RBC 0.000 Nucleated RBC % (auto) 0.0 Sodium 139 Potassium 4.1 Chloride 108 Carbon Dioxide 24 Anion Gap 11 L BUN 8 L Creatinine 0.86 Estim Creat Clear Calc 106.0 Estimated GFR > 60 Random Glucose 115 Calcium 9.2 D C-Reactive Protein 0.55 H Tiss Transglutamin IgA <1.0 Additional Comments Additional comments: CT/CT abdomen pelvis wo con IMPRESSION: 1. Long segment of distal/terminal ileum with abnormal mural thickening and surrounding infiltrative changes consistent with an infectious/inflammatory enteritis. No associated obstruction. No other significant abnormality. ? Discharge Plan Discharge Patient Disposition: Home, Self-Care Discharge Diagnosis: Enteritis -possible bacterial vs IBS- post colonoscopy a nd biopsies pending. Referrals: Rudi Charles MD [Primary Care Provider] - 1 Week Discharge Medications: New acetaminophen 325 mg Tablet 650 mg PO Q6H PRN (Reason: Pain, Mild (Pain Scale 1-3)) Qty: 14 0RF omeprazole 20 mg Capsule,Delayed Release(Dr/Ec) 20 mg PO DAILY@0630 Qty: 30 0RF amoxicillin-pot clavulanate 875-125 mg tablet 1 tab PO BID Qty: 8 0RF Continued albuterol sulfate [Ventolin HFA] 90 mcg/actuation HFA aerosol inhaler 2 puff inhalation Q4-6H PRN (Reason: shortness of breath or wheezing) Qty: 8 0RF Discharge Orders: Discharge Order (Routine); Ordered 10/31/21 Ordered By: Rosalinda Norwood Diet: Advance to usual diet Activity on Discharge: As tolerated Stand Alone Forms: Patient Portal Discharge page Care Plan Goals: patient was admitted for abdominal pain - abdominal CT showed enteritis- started on IV antibiotics, workup including ESR and CRP was slightly elevated, had leukocytosis: subsequently patient was seen by GI as well as had EGD and colonoscopy: which the only showed polyp, some gastric erythema, in addition to that patient had multiple biopsies taken. immunological testing including IgA, AMANDO seems fine, celiac disease test pending. patient is to follow-up with PCP and GI out patiently for above testing as well as further management. patient seems to be improved with supportive care including hydration and antibiotics Tolerating diet, abdominal pain improved. Health Concerns: as above. Plan of Treatment: As above. Assessment: As above.
[2021-10-31 11:46] VITALS: BP 108/62; PULSE 85; RESP 18; TEMP 36.3; O2SAT 95
[2021-10-31 12:22] LABS: Transglutaminase Ab IgG <1.0 U/mL
[2021-10-31] MEDS: Amoxicillin/Potassium Clav 875 MG TABLET PO (13:39)
[2021-11-03 14:07] LABS: Lactoferrin, Fecal, Quant. <30.0 mcg/mL
== END 2021-10-31 15:43 | disposition home or self-care (01) | DRG 244 ==
LOC: HO.ED 19:46 → HO.EDOVER 19:46 → HO.S3 10-26 18:21
PROVIDERS: Internal Medicine Gastroenterology; Nurse Practitioner Family; Admitting Provider Hospitalist; Emergency Provider Emergency Medicine Emergency Medical Services; PCP Internal Medicine; Visit Provider Internal Medicine
PROC: 0DJD8ZZ Inspection of Lower Intestinal Tract, Via Natural or Artificial Opening Endoscopic (ICD-10-PCS; CPT 45378; principal; 2021-10-29 14:40)
DX: K57.30 Diverticulosis of large intestine without perforation or abscess without bleeding (principal); K22.10 Ulcer of esophagus without bleeding; K25.9 Gastric ulcer, unspecified as acute or chronic, without hemorrhage or perforation; K63.5 Polyp of colon; K64.8 Other hemorrhoids; E66.01 Morbid (severe) obesity due to excess calories; Z68.42 Body mass index [BMI] 45.0-49.9, adult; Z71.3 Dietary counseling and surveillance; Z20.822 Contact with and (suspected) exposure to COVID-19; Z87.891 Personal history of nicotine dependence; Z88.5 Allergy status to narcotic agent; Z79.899 Other long term (current) drug therapy
CPT/HCPCS: 36415; 74018; 74176; 80048; 80053; 81001; 82077; 82784; 83605; 83631; 83690; 84443; 84702; 85025; 85027; 85652; 86038; 86039; 86140; 86364; 87040; 87507; 87635; 88305; 88342; 96361; 96365; 96375; 99285; J0330; J0696; J1170; J1650; J1885; J1956; J2250; J2270; J2405; J2550; J3010

== ENCOUNTER 2022-09-03 14:21 | Outpatient (REF) | payer OTHER, SELFPAY ==
[2022-09-03 18:38] LABS: CT PCR NOT DETECTED (Not Detect.); NG PCR NOT DETECTED (Not Detect.)
[2022-09-04 12:38] LABS: BV Int Neg Control Negative (Negative); BV Int Pos Control Positive (Positive)
[2022-09-05 22:54] LABS: HPV mRNA E6/E7 rflx Not Detected (Not Detected)
== END 2022-09-03 14:22 | disposition home or self-care (01) ==
LOC: HO.LNP 14:21
PROVIDERS: PCP Internal Medicine; Visit Provider Advanced Practice Midwife
DX: Z12.4 Encounter for screening for malignant neoplasm of cervix (principal); Z11.51 Encounter for screening for human papillomavirus (HPV); Z20.2 Contact with and (suspected) exposure to infections with a predominantly sexual mode of transmission; K52.9 Noninfective gastroenteritis and colitis, unspecified
CPT/HCPCS: 0353U; 87480; 87510; 87624; 87660; 88142; 99202

== ENCOUNTER 2022-10-29 16:29 | Emergency (ER) | payer OTHER, SELFPAY ==
--- NOTE | ~2022-10-29 | US_ITS ---
EXAMINATION: US ABDOMEN LIMITED CLINICAL INFORMATION: Right upper quadrant tenderness in the area of gallbladder. COMPARISON: None available. TECHNIQUE: Real-time imaging of the right upper quadrant abdominal viscera. FINDINGS: GALLBLADDER: The gallbladder is distended with nonmobile echogenic lesion with shadowing in neck of the gallbladder measuring 0.7 x 0.5 x 0.6 cm. Question polyp versus nonmobile stone. No wall thickening seen. COMMON BILE DUCT: Normal in caliber measuring 0.3/0.4 cm in diameter. US/US abdomen limited IMPRESSION: 1. Nonmobile echogenic lesion in the neck of the gallbladder likely a gallstone or echogenic polyp. No wall thickening. Mild tenderness in the right upper quadrant by ultrasound probe. Correlate with clinical exam. 2. CBD is normal.
[2022-10-29 16:40] VITALS: BP 113/76; PULSE 95; RESP 18; TEMP 36; O2SAT 99; BMI 43.0
--- NOTE | 2022-10-29 16:41 | ED.GENADULT ---
HPI - General Adult General Chief complaint: Nausea/Vomiting/Diarrhea Stated complaint: Chromes pain Related Data Previous Rx's Medication Instructions Recorded ibuprofen 800 mg tablet 800 mg PO Q8H PRN pain #30 tabs 11/02/22 Allergies Allergy/AdvReac Type Severity Reaction Status Date / Time oxycodone [OXYCODONE] Allergy Unknown ITCHING, Verified 10/31/22 14:39 NAUSEA, HOT PMFSH Past Medical History Medical History Asthma Bronchitis Pulmonary nodule, right Surgical History History of esophagogastroduodenoscopy (EGD) History of tonsillectomy Hx of adenoidectomy Hx of arthroscopy of knee Hx of section Hx of colonoscopy Family History Family History Maternal Grandfather Pancreas cancer Social History Social History Household Members: Family Housing: Apartment Do you presently have visiting nurse or other home services: No Alcohol intake: current Alcohol intake frequency: does not drink Patient Tobacco Use Status: Former Tobacco user Quit Date: 3 years ago e-Cigarette/Vaping Use: Former Use Second Hand Smoke Exposure: No Substance Use Type: Marijuana service: No Current occupational status: employed 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 handed Physical Exam ED Vital Signs: BMI result Body Mass Index 43.0 Course Course Course Narrative: RME- 32 year old female presents for evaluation of abdominal pain and vomiting. Pain is mostly right upper quadrant. She reports a history of Crohn's. Plan for labs, UA, ultrasound. Patient given Zofran ODT in the waiting room Medications Administered Discontinued Medications Generic Name Dose Route Start Last Admin Trade Name Freq PRN Reason Stop Dose Admin Ondansetron HCl 4 mg 10/29/22 16:40 10/29/22 16:45 Ondansetron Odt 4 Mg Tab.Maribel TRANSLINGU 10/29/22 16:41 4 mg ONCE ONE Administration Medical Decision Making Lab Data 10/29/22 17:00 10/29/22 17:00 Labs: Lab Results 10/29/22 Range/Units 17:00 WBC 8.6 (4.8-10.8) X10*3/uL RBC 4.16 L (4.20-5.50) X10*6/uL Hgb 12.6 (12.0-16.0) g/dl Hct 38.3 (37.0-47.0) % MCV 92.1 (80.0-98.0) fL MCH 30.3 (27.0-33.0) pg MCHC 32.9 (31.0-35.0) g/dl RDW 12.1 (11.0-16.0) % Plt Count 264 (160-400) X10*3/uL MPV 10.4 (9.4-12.3) fL Immature Gran % (Auto) 0.3 (0.0-0.4) % Neut % (Auto) 66.2 (45-73) % Lymph % (Auto) 25.4 (20-40) % [place] % (Auto) 5.5 (2-11) % Eos % (Auto) 2.1 (0-4) % Baso % (Auto) 0.5 (0-2) % Lymph # (Auto) 2.2 (1.2-4.9) X10*3/uL [place] # (Auto) 0.5 (0.1-1.2) X10*3/uL Eos # (Auto) 0.2 (0.0-0.4) X10*3/uL Baso # (Auto) 0.0 (0.0-0.2) X10*3/uL Abs Immat Gran (auto) 0.03 (0.00-0.03) X10*3/uL Absolute Neuts (auto) 5.7 (2.0-8.3) x10*3/uL Absolute Nucleated RBC 0.000 (0.0-0.012) X10*3/uL Nucleated RBC % (auto) 0.0 (0.0-0.2) /100WBC ESR 28 H (0-20) MM/HR Sodium 140 (135-145) mmol/L Potassium 3.8 (3.3-5.1) mmol/L Chloride 109 H (96-108) mmol/L Carbon Dioxide 23 (22-29) mmol/L Anion Gap 12 (12-20) BUN 10 (9-16) mg/dL Creatinine 0.88 (0.5-1.4) mg/dL Estim Creat Clear Calc 97.3 Estimated GFR > 60 Random Glucose 90 (60-115) mg/dL Calcium 9.0 (8.4-10.2) mg/dL Total Bilirubin 0.4 (0.0-1.0) mg/dL AST 14 (5-31) U/L ALT 18 (0-31) U/L Alkaline Phosphatase 65 (39-117) U/L C-Reactive Protein 0.27 (< or = 0.50) mg/dL Total Protein 7.1 (6.5-8.0) g/dL Albumin 4.0 (3.5-5.0) g/dL Lipase 36 (8-78) U/L Discharge Plan Discharge Clinical Impression: Abdominal pain in female Patient Disposition: Elopement Prescriptions: No Action ibuprofen 800 mg tablet 800 mg PO Q8H PRN (Reason: pain) Qty: 30 0RF Discharge Date/Time: 10/29/22 19:32
[2022-10-29] MEDS: Ondansetron ODT 4 MG TAB.RAPDIS TRANSLINGU (16:45)
--- NOTE | 2022-10-29 16:46 | PC.NURSE ---
pt medicated per MAR.
[2022-10-29 17:08] LABS: MANUAL DIFF FLAG NO
[2022-10-29 17:14] LABS: Basophils Percent Auto 0.5 % (0-2); Eosinophils Absolute Auto 0.2 X10*3/uL (0.0-0.4); Eosinophils Percent Auto 2.1 % (0-4); Hematocrit 38.3 % (37.0-47.0); Hemoglobin 12.6 g/dl (12.0-16.0); Imm Gran Abs Auto 0.03 X10*3/uL (0.00-0.03); Imm Gran Pct Auto 0.3 % (0.0-0.4); Lymphocytes Absolute Auto 2.2 X10*3/uL (1.2-4.9); Lymphocytes Percent Auto 25.4 % (20-40); Mean Corpuscular HGB Conc 32.9 g/dl (31.0-35.0); Mean Corpuscular Hemoglobin 30.3 pg (27.0-33.0); Mean Corpuscular Volume 92.1 fL (80.0-98.0); Mean Platelet Volume 10.4 fL (9.4-12.3); Monocytes Absolute Auto 0.5 X10*3/uL (0.1-1.2); Monocytes Percent Auto 5.5 % (2-11); Neutrophils Absolute Auto 5.7 x10*3/uL (2.0-8.3); Neutrophils Percent Auto 66.2 % (45-73); Platelet Count 264 X10*3/uL (160-400); Red Blood Count 4.16 X10*6/uL (4.20-5.50); Red Cell Distribution Width 12.1 % (11.0-16.0); White Blood Count 8.6 X10*3/uL (4.8-10.8)
[2022-10-29 17:35] LABS: Alanine Aminotransferase 18 U/L (0-31); Alkaline Phosphatase 65 U/L (39-117); Anion Gap 12 (12-20); Aspartate Amino Transferase 14 U/L (5-31); Bilirubin Total 0.4 mg/dL (0.0-1.0); Blood Urea Nitrogen 10 mg/dL (9-16); C Reactive Protein 0.27 mg/dL (< or = 0.50); Carbon Dioxide 23 mmol/L (22-29); Chloride 109 mmol/L (96-108); Creatinine Clr Calc Pharmacy 97.3; Estimated Glomerular Filt Rate > 60; Glucose Random 90 mg/dL (60-115); Lipase 36 U/L (8-78); Potassium 3.8 mmol/L (3.3-5.1); Sodium 140 mmol/L (135-145); Total Protein 7.1 g/dL (6.5-8.0)
[2022-10-29 18:15] LABS: Erythrocyte Sedimentation Rate 28 MM/HR (0-20)
== END 2022-10-29 19:32 | disposition left against medical advice (07) ==
PROVIDERS: Physician Assistant; Emergency Provider Emergency Medicine
DX: K82.9 Disease of gallbladder, unspecified (principal); R10.11 Right upper quadrant pain; R11.10 Vomiting, unspecified; Z87.891 Personal history of nicotine dependence; F12.90 Cannabis use, unspecified, uncomplicated
CPT/HCPCS: 36415; 76705; 80053; 83690; 85025; 85652; 86140; 99281; 99284

== ENCOUNTER 2022-10-31 14:27 | Outpatient (AMB) | payer OTHER, SELFPAY ==
--- NOTE | 2022-10-31 14:31 | MHC.OFFVIS ---
Intake Vital Signs 10/31/22 14:40 Height 5 ft Weight 220 lb 0.341 oz BMI 43.0 BP 122/82 Blood Pressure Location Lt brachial Position Sitting Intake Visit Reasons: gallstones Intake Note: Patient is seen in office for ER follow up visit, following gallstones. Patient c/o: onset for a year, admits to nausea, vomit, diarrhea, unable to void properly, pain radiates to the back, bloating, increase pain for the past 3 days, had imaging done at ED Hall Director Required: No Accompanied by: Other Relationship Allergies oxycodone [OXYCODONE] Allergy (Unknown, Verified 10/31/22 14:39) ITCHING, NAUSEA, HOT Medication List - Last Reconciled 10/31/22 by Delbert Blanca MD doxycycline hyclate 100 mg PO BID Ventolin HFA 90 mcg/actuation (albuterol sulfate) 2 puffs inhalation Q4-6H PRN NS HPI HPI Comments History of Present Illness Details 32-year-old female patient presenting with complaints of diffuse abdominal pain of 3 day duration. She reports a long history of abdominal pain radiating to the back bilaterally. The pain is now associated with nausea, vomiting, diarrhea. She was previously felt to have Crohn's disease although endoscopy with biopsy were negative. She was evaluated in the emergency department and a CT abdomen and pelvis did reveal an area of enteritis involving the terminal ileum. She was known to have a gall bladder polyp and this was again identified by ultrasound. Tenderness was noted with palpation of the gallbladder therefore it was suggested that her pain may be related to the gallbladder. The pain is also increased with ambulation. REPLACED BY [facility] Medical History Asthma Bronchitis Pulmonary nodule, right Surgical History History of tonsillectomy Hx of adenoidectomy Hx of section Family History Maternal Grandfather Pancreas cancer Social History Household Members: Children Housing: Apartment Do you presently have visiting nurse or other home services: No Alcohol intake: current Alcohol intake frequency: does not drink Patient Tobacco Use Status: Former Tobacco user Quit Date: 3 years ago Substance Use Type: Marijuana service: No Current occupational status: employed 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 handed Female Reproductive History Menstrual Age of Menarche: 12 Review of Systems Const All systems reviewed & are unremarkable except as noted in HPI and below GI Reports abdominal pain, Reports diarrhea, Reports nausea and Reports vomiting Physical Exam Vital Signs: Last Vital Signs BP 122/82 10/31/22 14:40 BMI result Body Mass Index 43.0 Const Other: Patient is crying due to pain General: ill appearing Nutritional Appearance: well nourished Orientation/consciousness: patient oriented x3 Resp Effort & Inspection: normal respiratory effort, no audible wheezes, no cough and no respiratory distress GI Other: Abdomen is soft, distended, diffusely tender in all 4 quadrants without rebound or guarding. No tympany to percussion. Skin Other: Warm, dry, no rashes Neuro General: patient oriented x3 Extrem Other: No edema. Normal range of motion Assessment & Plan Assessment & Plan (1) Enteritis: Code(s): K52.9 - Noninfective gastroenteritis and colitis, unspecified (2) Gallbladder polyp: Code(s): K82.4 - Cholesterolosis of gallbladder Plan 32-year-old female patient presenting with acute abdominal pain diffusely throughout the abdomen. She has a known history of gallbladder polyp which occasionally can cause biliary colic but would not normally cause diffuse abdominal pain as the patient is currently experiencing. Review of her recent CT scan does reveal terminal ileitis which is more likely the cause of her ongoing symptoms. I recommended she be evaluated in the emergency department and will certainly be a candidate for admission for pain control and GI workup. Cholecystectomy is unlikely to improve her symptoms. She expressed understanding and agrees with the plan. Coding Level of Care Code New Pt Level 4 (19166) Diagnoses Enteritis K52.9 Gallbladder polyp K82.4
[2022-10-31 14:40] VITALS: BP 122/82; BMI 43.0
== END 2022-10-31 15:16 | disposition home or self-care (01) ==
PROVIDERS: Visit Provider Surgery
DX: K52.9 Noninfective gastroenteritis and colitis, unspecified (principal); K82.4 Cholesterolosis of gallbladder
CPT/HCPCS: 99204

== ENCOUNTER → 2022-10-31 14:27 | Outpatient (BNVA) | payer OTHER, SELFPAY | PROVIDERS: Visit Provider Surgery ==

== ENCOUNTER 2022-10-31 14:50 | Inpatient (IN) | payer OTHER, SELFPAY ==
--- NOTE | ~2022-10-31 | NM_ITS ---
EXAMINATION: BILIARY TRACT IMAGING STUDY CLINICAL INDICATION: Right upper quadrant abdominal pain. COMPARISON: Abdominal ultrasound done on 10/31/[address] of the abdomen and pelvis also done on 11/01/2019 TECHNIQUE: Scintillation camera images were obtained over the abdomen for an observation of 94 minutes following the intravenous administration of 5 millicuries technetium 99m mebrofenin. FINDINGS: There is good concentration of activity in the liver by 5 minutes post injection. Biliary activity is well visualized by 8 minutes, and there is good visualization of small bowel activity by 82 minutes. The gallbladder is well visualized by 25 minutes. NM/NM hepatobiliary wo pharm IMPRESSION: Normal biliary scan. Visualization of the gallbladder is evidence of a patent cystic duct and strong evidence against the diagnosis of acute cholecystitis. The common bile duct is patent. Liver function appears normal.
--- NOTE | ~2022-10-31 | CT_ITS ---
EXAMINATION: CT ABDOMEN AND PELVIS WITH CONTRAST CLINICAL INFORMATION: Abnormal gallbladder on ultrasound. COMPARISON: Abdominal ultrasound dated 10/31/2022, CT scan of the abdomen and pelvis dated 10/30/2021. TECHNIQUE: Multidetector volumetric images were obtained from the superior aspect of the liver through the pubic symphysis following administration 85 mL of Omnipaque 350 intravenous contrast. Sagittal and coronal reformatted images were obtained on the technologist's workstation. Oral contrast: No This CT examination was performed using dose optimization techniques as appropriate, variously including the following: *Automated exposure control *Adjustment of mA and/or kV according to patient size (this includes techniques or standardized protocols for targeted exams where dose is matched to indication/reason for exam; i.e. extremities or head) *Use of iterative reconstruction technique DLP: 702 mGy-cm FINDINGS: LUNG BASES: The visualized lung bases are unremarkable. LIVER, GALLBLADDER, AND BILIARY TREE: Unremarkable. PANCREAS: Unremarkable. SPLEEN: Unremarkable. ADRENAL GLANDS: Unremarkable. KIDNEYS AND URETERS: The kidneys are normal in size, shape, and attenuation. No hydronephrosis, hydroureter, or calculi seen. No perinephric stranding. BLADDER: Unremarkable. GASTROINTESTINAL TRACT: The stomach, small bowel and appendix are unremarkable. The colon and rectum are unremarkable. ABDOMINAL WALL: No significant hernia is appreciated. LYMPH NODES: No lymphadenopathy. VASCULAR: Unremarkable. PELVIC VISCERA: Unremarkable. OSSEOUS STRUCTURES: Unremarkable. CT/CT abdomen pelvis w IV con IMPRESSION: No acute intra-abdominal/pelvic abnormality. No significant abnormality in the gallbladder fossa. Please refer to the right upper quadrant ultrasound study for more detailed findings. If symptoms persist or worsen, short-term repeat right upper quadrant abdominal ultrasound is recommended.
--- NOTE | ~2022-10-31 | US_ITS ---
EXAMINATION: US ABDOMEN LIMITED CLINICAL INFORMATION: Right upper quadrant pain. COMPARISON: None available. TECHNIQUE: Real-time imaging of the right upper quadrant abdominal viscera. FINDINGS: PANCREAS: The visualized portion of the pancreas head and body are normal, portion of the pancreatic body and tail, not visualized are obscured by bowel gas. LIVER: Increased echogenicity of the liver parenchyma, this can be seen in the setting of hepatic steatosis or liver parenchymal disease. The liver is normal in size. The liver contour is normal. No focal hepatic lesion. There is no intrahepatic biliary duct dilatation seen. GALLBLADDER: There are stones impacted in the gallbladder neck. There is tenderness reported pressing on the gallbladder, there is borderline thickening of the gallbladder wall measuring up to 3 mm, no other signs to suggest cholecystitis, no pericholecystic fluid collection or dilatation of the common bile duct. COMMON BILE DUCT: Normal in caliber measuring 0.4 cm in diameter. RIGHT KIDNEY: Normal. No hydronephrosis. No renal calculi or focal parenchymal lesions. The kidney measures 10.2 cm in maximum dimension. FREE FLUID: None. US/US abdomen limited IMPRESSION: * There are gallstones impacted in the gallbladder neck, there is mild thickening of the gallbladder wall measuring up to 3 mm, there is tenderness reported pressing on the gallbladder, these findings raise suspicion for POSSIBLE ACUTE CHOLECYSTITIS. Surgical evaluation and/or further assessment with HIDA scan is warranted. * Increased echogenicity of the liver parenchyma, this can be seen in the setting of hepatic steatosis or liver parenchymal disease. * Common bile duct nondilated 4 mm.
[2022-10-31 16:13] VITALS: BP 119/70; PULSE 81; RESP 22; TEMP 36; O2SAT 100; BMI 42.1
--- NOTE | 2022-10-31 16:14 | ED_ITS ---
HPI - General Adult General Chief complaint: Abdominal Pain Stated complaint: abd pain tender very Time Seen by Provider: 10/31/22 19:46 Source: patient Mode of arrival: ambulatory Limitations: no limitations History of Present Illness HPI narrative: patient with frequent right upper abdominal pain off and on for last 1 year told that she has a gallbladder polyp and Crohn's disease not on any medication, but for last 4 days pain is getting worse with nausea and vomiting unable to hold any liquids down was seen here on 10/29 had ultrasound which showed polyp/ stone in the gallbladder neck without gallbladder wall thickness or fluid, patient comes back as pain is worse now repeat ultrasound showed impacted stones in gallbladder neck with mild thickening of gallbladder wall up to 3 mm no fluid collection around the gallbladder patient is in severe pain now CBD is not dilated 4 mm, patient does have chronic diarrhea for years Related Data Home Medications Medication Instructions Recorded Confirmed ibuprofen 200 mg tablet 400 mg PO Q6H PRN Pain 10/31/22 10/31/22 Allergies Allergy/AdvReac Type Severity Reaction Status Date / Time oxycodone [OXYCODONE] Allergy Unknown ITCHING, Verified 10/31/22 14:39 NAUSEA, HOT Review of Systems Review of Systems: Yes all other systems are reviewed and are negative [facility] Past Medical History Medical History Asthma Bronchitis Pulmonary nodule, right Surgical History History of tonsillectomy Hx of adenoidectomy Hx of section Family History Family History Maternal Grandfather Pancreas cancer Social History Social History Household Members: Children Housing: Apartment Do you presently have visiting nurse or other home services: No Alcohol intake: current Alcohol intake frequency: does not drink Patient Tobacco Use Status: Former Tobacco user Quit Date: 3 years ago Substance Use Type: Marijuana Advance Directives: No Advance Directives Information Provided: No service: No Current occupational status: employed 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 handed Physical Exam ED Vital Signs: Vital Signs - 24 hr 10/31/22 16:13 10/31/22 19:38 Temperature 96.8 F 98.1 F Pulse Rate 81 68 Respiratory Rate 22 H 18 Blood Pressure 119/70 117/73 Pulse Oximetry 100 100 Oxygen Delivery Method Room Air Room Air BMI result Body Mass Index 42.1 Appearance: Alert. Oriented X3. moderate distress Eyes: no pallor/icterus ENT: Pharynx normal. Oral Mucosa moist Neck: Normal inspection. Neck supple. CVS: Normal heart rate and rhythm. Pulses normal. Respiratory: No respiratory distress. Equal air entry bilateral, no wheezing/rales/rhonchi Abdomen: Soft , tenderness right upper quadrant with guardingMurphy sign positive, no rebound tenderness Bowel sounds are present, no mass palpable, no CVA tenderness Skin: Skin warm and dry. Normal skin color. Normal skin turgor. Extremities: No lower extremity edema. No calf tenderness Neuro: Oriented X 3. Course Course Course Narrative: This is an RME: Additional HPI, ROS, PE not included below will be deferred to primary provider. This is a 32-year-old female, hx of crohn's, presenting to the ER with complaints of abdominal pain x 4 days. +nausea, vomiting, diarrhea. Patient visibly uncomfortable, vomiting in triage. Was seen in the emergency department several days ago however eloped. Plan: Labs, UA, US abd Medications Administered Generic Name Dose Route Start Last Admin Trade Name Freq PRN Reason Stop Dose Admin Sodium Chloride 1,000 mls @ 999 mls/hr 10/31/22 19:51 10/31/22 20:01 Ns IV 10/31/22 20:51 999 mls/hr .Q1H1M ONE Administration Discontinued Medications Generic Name Dose Route Start Last Admin Trade Name Freq PRN Reason Stop Dose Admin Iohexol 100 ml 10/31/22 20:38 10/31/22 20:38 Iohexol 350 Mg/Ml 100 Ml Infus..Btl IV 10/31/22 20:39 85 ml ONCE ONE Administration Morphine Sulfate 4 mg 10/31/22 19:51 10/31/22 20:01 Morphine Sulfate 4 Mg/Ml Cartridge IVPUSH 10/31/22 19:52 4 mg ONCE ONE Administration Protocol Ondansetron HCl 4 mg 10/31/22 19:51 10/31/22 20:01 Ondansetron Hcl 4 Mg/2 Ml Vial IVPUSH 10/31/22 19:52 4 mg ONCE ONE Administration Medical Decision Making Medical Decision Making [facility] Narrative: patient with severe right upper quadrant pain with Johnson sign positive workup showed impacted gallstones in gallbladder neck case discussed with Dr. Cristobal is will admit patient for possible surgery in a.m. requested CT scan of the abdomen Differential Diagnosis Differential Diagnoses: The differential diagnosis associated with the presentation includes biliary colic /UTI/ colitis Lab Data [facility] Lab Attestation statement: I reviewed the patient's lab results. 10/31/22 16:29 10/31/22 16:29 Labs: Lab Results 10/31/22 10/31/22 10/31/22 Range/Units 16:29 16:29 16:38 WBC 9.0 (4.8-10.8) X10*3/uL RBC 4.48 (4.20-5.50) X10*6/uL Hgb 13.6 (12.0-16.0) g/dl Hct 40.7 (37.0-47.0) % MCV 90.8 (80.0-98.0) fL MCH 30.4 (27.0-33.0) pg MCHC 33.4 (31.0-35.0) g/dl RDW 12.1 (11.0-16.0) % Plt Count 264 (160-400) X10*3/uL MPV 10.4 (9.4-12.3) fL Immature Gran % (Auto) 0.3 (0.0-0.4) % Neut % (Auto) 59.4 (45-73) % Lymph % (Auto) 30.5 (20-40) % [place] % (Auto) 7.0 (2-11) % Eos % (Auto) 2.5 (0-4) % Baso % (Auto) 0.3 (0-2) % Lymph # (Auto) 2.8 (1.2-4.9) X10*3/uL [place] # (Auto) 0.6 (0.1-1.2) X10*3/uL Eos # (Auto) 0.2 (0.0-0.4) X10*3/uL Baso # (Auto) 0.0 (0.0-0.2) X10*3/uL Abs Immat Gran (auto) 0.03 (0.00-0.03) X10*3/uL Absolute Neuts (auto) 5.4 (2.0-8.3) x10*3/uL Absolute Nucleated RBC 0.000 (0.0-0.012) X10*3/uL Nucleated RBC % (auto) 0.0 (0.0-0.2) /100WBC Sodium 139 (135-145) mmol/L Potassium 3.5 (3.3-5.1) mmol/L Chloride 108 (96-108) mmol/L Carbon Dioxide 21 L (22-29) mmol/L Anion Gap 14 (12-20) BUN 11 (9-16) mg/dL Creatinine 0.83 (0.5-1.4) mg/dL Estim Creat Clear Calc 101.9 Estimated GFR > 60 Random Glucose 81 (60-115) mg/dL Lactic Acid (0.5-2.0) mmol/L Calcium 9.6 D (8.4-10.2) mg/dL Total Bilirubin 0.3 (0.0-1.0) mg/dL Direct Bilirubin 0.1 (0.0-0.5) mg/dL AST 13 (5-31) U/L ALT 17 (0-31) U/L Alkaline Phosphatase 69 (39-117) U/L Total Protein 7.5 (6.5-8.0) g/dL Albumin 4.2 (3.5-5.0) g/dL Lipase 41 (8-78) U/L Urine Color Yellow Urine Appearance Cloudy Urine pH 5.5 (5.0-9.0) Ur Specific [place] >= 1.030 H (1.005-1.025) Urine Protein Negative (Neg-Trace) mg/dL Urine Glucose (UA) Negative (Negative) mg/dL Urine Ketones Trace (Negative) mg/dL Urine Blood Negative (Negative) Urine Nitrite Negative (Negative) Ur Leukocyte Esterase Negative (Negative) Urine RBC 3-5 H (0-2) /HPF Urine WBC 0-5 (0-5) /HPF Ur Squamous Epith Cells 11-20 (0-2) /HPF Urine Bacteria 3+ (None Seen) Hyaline Casts 0-2 (0-2) /LPF Urine Test (NEGATIVE) 10/31/22 10/31/22 Range/Units 16:38 20:06 WBC (4.8-10.8) X10*3/uL RBC (4.20-5.50) X10*6/uL Hgb (12.0-16.0) g/dl Hct (37.0-47.0) % MCV (80.0-98.0) fL MCH (27.0-33.0) pg MCHC (31.0-35.0) g/dl RDW (11.0-16.0) % Plt Count (160-400) X10*3/uL MPV (9.4-12.3) fL Immature Gran % (Auto) (0.0-0.4) % Neut % (Auto) (45-73) % Lymph % (Auto) (20-40) % [place] % (Auto) (2-11) % Eos % (Auto) (0-4) % Baso % (Auto) (0-2) % Lymph # (Auto) (1.2-4.9) X10*3/uL [place] # (Auto) (0.1-1.2) X10*3/uL Eos # (Auto) (0.0-0.4) X10*3/uL Baso # (Auto) (0.0-0.2) X10*3/uL Abs Immat Gran (auto) (0.00-0.03) X10*3/uL Absolute Neuts (auto) (2.0-8.3) x10*3/uL Absolute Nucleated RBC (0.0-0.012) X10*3/uL Nucleated RBC % (auto) (0.0-0.2) /100WBC Sodium (135-145) mmol/L Potassium (3.3-5.1) mmol/L Chloride (96-108) mmol/L Carbon Dioxide (22-29) mmol/L Anion Gap (12-20) BUN (9-16) mg/dL Creatinine (0.5-1.4) mg/dL Estim Creat Clear Calc Estimated GFR Random Glucose (60-115) mg/dL Lactic Acid 1.0 (0.5-2.0) mmol/L Calcium (8.4-10.2) mg/dL Total Bilirubin (0.0-1.0) mg/dL Direct Bilirubin (0.0-0.5) mg/dL AST (5-31) U/L ALT (0-31) U/L Alkaline Phosphatase (39-117) U/L Total Protein (6.5-8.0) g/dL Albumin (3.5-5.0) g/dL Lipase (8-78) U/L Urine Color Urine Appearance Urine pH (5.0-9.0) Ur Specific [place] (1.005-1.025) Urine Protein (Neg-Trace) mg/dL Urine Glucose (UA) (Negative) mg/dL Urine Ketones (Negative) mg/dL Urine Blood (Negative) Urine Nitrite (Negative) Ur Leukocyte Esterase (Negative) Urine RBC (0-2) /HPF Urine WBC (0-5) /HPF Ur Squamous Epith Cells (0-2) /HPF Urine Bacteria (None Seen) Hyaline Casts (0-2) /LPF Urine Test NEGATIVE (NEGATIVE) Radiology Impression Discussion of test interpretation with radiology: I have reviewed the radiologist's reading. Radiologist Impression: [place] [id number] Ultrasound Report Signed Patient: Lissa Moreno MR#: [id number] : 1990 Acct:[id number] Age/Sex: 32 / F ADM Date: 10/31/22 Loc: HO.ED Attending Dr: Ordering Physician: Tamela Thompson Date of Service: 10/31/22 Procedure(s): US abdomen limited Accession Number(s): [id number] cc: Tamela Thompson~ EXAMINATION: US ABDOMEN LIMITED CLINICAL INFORMATION: Right upper quadrant pain. COMPARISON: None available. TECHNIQUE: Real-time imaging of the right upper quadrant abdominal viscera. FINDINGS: PANCREAS: The visualized portion of the pancreas head and body are normal, portion of the pancreatic body and tail, not visualized are obscured by bowel gas. LIVER: Increased echogenicity of the liver parenchyma, this can be seen in the setting of hepatic steatosis or liver parenchymal disease. The liver is normal in size. The liver contour is normal. No focal hepatic lesion. There is no intrahepatic biliary duct dilatation seen. GALLBLADDER: There are stones impacted in the gallbladder neck. There is tenderness reported pressing on the gallbladder, there is borderline thickening of the gallbladder wall measuring up to 3 mm, no other signs to suggest cholecystitis, no pericholecystic fluid collection or dilatation of the common bile duct. COMMON BILE DUCT: Normal in caliber measuring 0.4 cm in diameter. RIGHT KIDNEY: Normal. No hydronephrosis. No renal calculi or focal parenchymal lesions. The kidney measures 10.2 cm in maximum dimension. FREE FLUID: None. US/US abdomen limited IMPRESSION: ? *? There are gallstones impacted in the gallbladder neck, there is mild thickening of the gallbladder wall measuring up to 3 mm, there is tenderness reported pressing on the gallbladder, these findings raise suspicion for POSSIBLE ACUTE CHOLECYSTITIS. Surgical evaluation and/or further assessment with HIDA scan is warranted. ? *? Increased echogenicity of the liver parenchyma, this can be seen in the setting of hepatic steatosis or liver parenchymal disease. ? *? Common bile duct nondilated 4 mm. ? Dictated By: Soren Gallegos MD Signed By: <Electronically signed by Soren Gallegos MD in [place]> 10/31/22 9067 Discharge Plan Discharge Clinical Impression: Biliary colic Patient Disposition: Admitted As Inpatient
[2022-10-31 16:37] LABS: MANUAL DIFF FLAG NO
[2022-10-31 16:41] LABS: Basophils Percent Auto 0.3 % (0-2); Eosinophils Absolute Auto 0.2 X10*3/uL (0.0-0.4); Eosinophils Percent Auto 2.5 % (0-4); Hematocrit 40.7 % (37.0-47.0); Hemoglobin 13.6 g/dl (12.0-16.0); Imm Gran Abs Auto 0.03 X10*3/uL (0.00-0.03); Imm Gran Pct Auto 0.3 % (0.0-0.4); Lymphocytes Absolute Auto 2.8 X10*3/uL (1.2-4.9); Lymphocytes Percent Auto 30.5 % (20-40); Mean Corpuscular HGB Conc 33.4 g/dl (31.0-35.0); Mean Corpuscular Hemoglobin 30.4 pg (27.0-33.0); Mean Corpuscular Volume 90.8 fL (80.0-98.0); Mean Platelet Volume 10.4 fL (9.4-12.3); Monocytes Absolute Auto 0.6 X10*3/uL (0.1-1.2); Neutrophils Absolute Auto 5.4 x10*3/uL (2.0-8.3); Neutrophils Percent Auto 59.4 % (45-73); Platelet Count 264 X10*3/uL (160-400); Red Blood Count 4.48 X10*6/uL (4.20-5.50); Red Cell Distribution Width 12.1 % (11.0-16.0)
[2022-10-31 16:52] LABS: Appearance Urine Cloudy; Color Urine Yellow; Glucose Urine UA Negative (Negative); Leukocyte Esterase Urine Negative (Negative); Nitrite Urine Negative (Negative); PH 5.5 (5.0-9.0); Specific Gravity - Urine >= 1.030 (1.005-1.025); Urine Blood Negative (Negative); Urine Ketones Trace mg/dL (Negative); Urine Protein Negative (Neg-Trace)
[2022-10-31 16:54] LABS: Bacteria Urine 3+ (None Seen); Hyaline Casts Urine 0-2 /LPF (0-2); WBC Urine 0-5 /HPF (0-5)
[2022-10-31 17:06] LABS: Alanine Aminotransferase 17 U/L (0-31); Albumin Level 4.2 g/dL (3.5-5.0); Alkaline Phosphatase 69 U/L (39-117); Anion Gap 14 (12-20); Aspartate Amino Transferase 13 U/L (5-31); Bilirubin Direct 0.1 mg/dL (0.0-0.5); Bilirubin Total 0.3 mg/dL (0.0-1.0); Blood Urea Nitrogen 11 mg/dL (9-16); Calcium 9.6 mg/dL (8.4-10.2); Carbon Dioxide 21 mmol/L (22-29); Chloride 108 mmol/L (96-108); Creatinine Clr Calc Pharmacy 101.9; Estimated Glomerular Filt Rate > 60; Glucose Random 81 mg/dL (60-115); Lipase 41 U/L (8-78); Potassium 3.5 mmol/L (3.3-5.1); Sodium 139 mmol/L (135-145); Total Protein 7.5 g/dL (6.5-8.0)
[2022-10-31 19:38] VITALS: BP 117/73; PULSE 68; RESP 18; TEMP 36.7; O2SAT 100
[2022-10-31] MEDS: 0.9 % Sodium Chloride 1,000 ML 999 ML IV (20:01)
[2022-10-31] MEDS: ondansetron HCL 4 MG/2 ML VIAL IVPUSH ×2 (20:01→22:50)
[2022-10-31] MEDS: Morphine Sulfate 4 MG/ML CARTRIDGE IVPUSH (20:01)
--- NOTE | 2022-10-31 20:16 | PHA.MEDREC ---
Pharmacy Consult ? Medication Reconciliation Pharmacy has completed the medication reconciliation. Patient reports no medication at home. Starr Malloy, [employer]
[2022-10-31 20:24] LABS: UPreg QC Valid YES; Urine Pregnancy NEGATIVE (NEGATIVE)
[2022-10-31] MEDS: iohexoL 350 MG/ML 100 ML INFUS..BTL IV (20:38)
[2022-10-31 22:32] VITALS: BP 104/60; PULSE 77; RESP 18; TEMP 36.7; O2SAT 100
[2022-10-31] MEDS: Morphine Sulfate 2 MG/ML CARTRIDGE 3 MG IVPUSH (22:50)
[2022-11-01] VITALS (9 sets, daily range): BP systolic 113–134; BP diastolic 60–85; PULSE 65–86; RESP 15–20; TEMP 36–36.9; O2SAT 94–99; BMI 42.2; BMI 43.0
[2022-11-01] MEDS: 0.9 % Sodium Chloride 1,000 ML 100 ML IVCONT ×2 (00:03→20:49)
--- NOTE | 2022-11-01 00:15 | PC.NURSE ---
pt resting comfortably on stretcher in no apparent distress - reports relief of pain s/p morphine administration. pt also has not vomited since she received zofran. iv fluids running at 100ml/hr. report called to emergency medicine physician assistant. pt to be transported up to bed [id number].
[2022-11-01] MEDS: Morphine Sulfate 2 MG/ML CARTRIDGE 3 MG IVPUSH ×3 (03:24→12:30)
[2022-11-01 06:33] LABS: MANUAL DIFF FLAG NO
[2022-11-01 06:42] LABS: Basophils Percent Auto 0.5 % (0-2); Eosinophils Absolute Auto 0.2 X10*3/uL (0.0-0.4); Eosinophils Percent Auto 3.1 % (0-4); Hematocrit 37.3 % (37.0-47.0); Hemoglobin 12.3 g/dl (12.0-16.0); Imm Gran Abs Auto 0.03 X10*3/uL (0.00-0.03); Imm Gran Pct Auto 0.4 % (0.0-0.4); Lymphocytes Absolute Auto 2.4 X10*3/uL (1.2-4.9); Lymphocytes Percent Auto 32.1 % (20-40); Mean Corpuscular Hemoglobin 30.3 pg (27.0-33.0); Mean Corpuscular Volume 91.9 fL (80.0-98.0); Mean Platelet Volume 10.6 fL (9.4-12.3); Monocytes Absolute Auto 0.5 X10*3/uL (0.1-1.2); Monocytes Percent Auto 6.6 % (2-11); Neutrophils Absolute Auto 4.2 x10*3/uL (2.0-8.3); Neutrophils Percent Auto 57.3 % (45-73); Platelet Count 227 X10*3/uL (160-400); Red Blood Count 4.06 X10*6/uL (4.20-5.50); White Blood Count 7.3 X10*3/uL (4.8-10.8)
[2022-11-01 06:52] LABS: Alanine Aminotransferase 15 U/L (0-31); Albumin Level 3.5 g/dL (3.5-5.0); Alkaline Phosphatase 59 U/L (39-117); Anion Gap 14 (12-20); Aspartate Amino Transferase 10 U/L (5-31); Bilirubin Direct 0.2 mg/dL (0.0-0.5); Bilirubin Total 0.5 mg/dL (0.0-1.0); Blood Urea Nitrogen 8 mg/dL (9-16); Calcium 8.7 mg/dL (8.4-10.2); Carbon Dioxide 19 mmol/L (22-29); Chloride 109 mmol/L (96-108); Creatinine Clr Calc Pharmacy 110.1; Estimated Glomerular Filt Rate > 60; Glucose Random 92 mg/dL (60-115); Potassium 3.8 mmol/L (3.3-5.1); Sodium 138 mmol/L (135-145); Total Protein 6.3 g/dL (6.5-8.0)
--- NOTE | 2022-11-01 08:46 | PM.HPGS ---
History of Present Illness History of Present Illness Date of Service: 11/01/22 Chief complaint: right sided abdominal pain Narrative: Patient was previously evaluated in the office on 10/31/2022 and subsequently was referred to the emergency department for further evaluation due to increased abdominal pain. As previously noted, she is a 32-year-old female patient presenting with complaints of diffuse abdominal pain of 3 day duration.? She reports a long history of abdominal pain radiating to the back bilaterally.? The pain is now associated with nausea, vomiting, diarrhea.? She was previously felt to have Crohn's disease although endoscopy with biopsy were negative.? She was evaluated in the emergency department and a CT abdomen and pelvis did reveal an area of enteritis involving the terminal ileum.? She was known to have a gall bladder polyp and this was again identified by ultrasound.? Tenderness was noted with palpation of the gallbladder therefore it was suggested that her pain may be related to the gallbladder.? The pain is also increased with ambulation. A repeat CT and ultrasound again revealed gallstones and she was therefore admitted for management of the gallstones. A HIDA scan is requested and pending at this time. Review of Systems Review of Systems: Yes all other systems are reviewed and are negative Gastrointestinal: Gastrointestinal: Reports abdominal pain, Reports diarrhea, Reports nausea and Reports vomiting PMFSH Past Medical History Medical History Asthma Bronchitis Pulmonary nodule, right Family History Family History Maternal Grandfather Pancreas cancer Surgical History Surgical History History of tonsillectomy Hx of adenoidectomy Hx of section Social History Social History Household Members: Family Housing: Apartment Do you presently have visiting nurse or other home services: No Alcohol intake: current Alcohol intake frequency: does not drink Patient Tobacco Use Status: Former Tobacco user Quit Date: 3 years ago Smoked in Last 30 Days: No e-Cigarette/Vaping Use: Former Use Patient Interested in Nicotine Replacement: No Patient Given Instructions on How to Stop Smoking: No Second Hand Smoke Exposure: No Substance Use Type: Marijuana Substance Use Frequency: Monthly Last Used Substance: Unknown Currently Displaying Signs/Symptoms of Drug Intoxication Withdrawal: No Any prior treatment program specific to substance use: No Have you been hit, kicked, punched, or otherwise hurt by someone within the past year? If so, by whom?: No Do you feel safe in your current relationship?: Yes Is there a partner from a previous relationship who is making you feel unsafe now?: No Are you made to feel afraid or neglected: No Advance Directives: No Advance Directives Information Provided: No Do you have thoughts of harming others: None Do you have a plan to hurt others: No Plan Recently lost weight without trying: No Eating poorly because of decreased appetite: No Nutrition Risks: No Nutritional Risk Patient : No : No Poor oral hygiene: No service: No Current occupational status: employed 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 handed [employer] Allergies Allergy/AdvReac Type Severity Reaction Status Date / Time oxycodone [OXYCODONE] Allergy Unknown ITCHING, Verified 10/31/22 14:39 NAUSEA, HOT Active Medications: Current Medications Sodium Chloride (Ns) 1,000 mls @ 100 mls/hr IVCONT .Q10H [facility] Last Admin: 11/01/22 00:03 Dose: 100 mls/hr Morphine Sulfate (Morphine Sulfate 2 Mg/Ml Cartridge) 3 mg IVPUSH Q3H PRN; Protocol PRN Reason: pain, severe Last Admin: 11/01/22 07:29 Dose: 3 mg Ondansetron HCl (Ondansetron Hcl 4 Mg/2 Ml Vial) 4 mg IVPUSH Q6H PRN PRN Reason: nausea Last Admin: 10/31/22 22:50 Dose: 4 mg Sodium Chloride (0.9 % Sodium Chloride Flush 3 Ml Syringe) [facility] Last Admin: 11/01/22 07:35 Dose: Not Given Home Medications Medication Instructions Recorded Confirmed Last Taken Type ibuprofen 200 mg tablet 400 mg PO Q6H PRN Pain 10/31/22 10/31/22 Unknown History Physical Exam Vital Signs: Vital Signs: Last Vital Signs Temp 98.0 F 11/01/22 07:32 Pulse 80 11/01/22 07:32 Resp 20 11/01/22 07:32 BP 127/80 11/01/22 07:32 Pulse Ox 99 11/01/22 07:32 O2 Del Method Room Air 11/01/22 07:32 BMI result Body Mass Index 42.2 Const: General: cooperative and no acute distress Nutritional Appearance: well nourished Orientation/consciousness: patient oriented x3 Limitations: no limitations HEENT: Head: Yes normocephalic and Yes atraumatic Ears: hearing grossly normal bilaterally Resp: Effort & Inspection: normal respiratory effort, no audible wheezes, no cough and no respiratory distress Cardio: Jugular venous distension: no JVD GI: Other: Diffusely tender in all 4 quadrants without rebound, guarding or rigidity. No scars or hernias identified. Tympany to percussion. Inspection: Yes normal to inspection Skin: Other: Warm, dry, no rash Neuro: General: patient oriented x3 Extrem: General: Yes no clubbing, cyanosis or edema Results Results Labs: Short CBC 10/31/22 11/01/22 Range/Units 16:29 06:04 WBC 9.0 7.3 (4.8-10.8) X10*3/uL Hgb 13.6 12.3 (12.0-16.0) g/dl Hct 40.7 37.3 (37.0-47.0) % Plt Count 264 227 (160-400) X10*3/uL BMP 10/31/22 11/01/22 16:29 06:04 Sodium 139 138 Potassium 3.5 3.8 Chloride 108 109 H Carbon Dioxide 21 L 19 L BUN 11 8 L Creatinine 0.83 0.77 Calcium 9.6 D 8.7 D Liver Function 10/31/22 11/01/22 11/01/22 Range/Units 16:29 06:04 06:04 Total Bilirubin 0.3 0.5 Cancelled (0.0-1.0) mg/dL Direct Bilirubin 0.1 0.2 Cancelled (0.0-0.5) mg/dL AST 13 10 Cancelled (5-31) U/L ALT 17 15 Cancelled (0-31) U/L Alkaline Phosphatase 69 59 Cancelled (39-117) U/L Albumin 4.2 3.5 Cancelled (3.5-5.0) g/dL Urine 10/31/22 10/31/22 Range/Units 16:38 16:38 Urine Color Yellow Urine Appearance Cloudy Urine pH 5.5 (5.0-9.0) Ur Specific [place] >= 1.030 H (1.005-1.025) Urine Protein Negative (Neg-Trace) mg/dL Urine Glucose (UA) Negative (Negative) mg/dL Urine Test NEGATIVE (NEGATIVE) Assessment and Plan (1) Biliary colic: Status: Acute (2) Gallbladder polyp: Status: Acute (3) Enteritis: Status: Acute Plan 32-year-old female patient with diffuse abdominal pain found to have gallbladder polyp and gallstones at the neck of the gallbladder. Patient admitted for pain control and further management of gallstones and abdominal pain. She is awaiting a HIDA scan. If this is positive arrangements will be made for laparoscopic or possible open cholecystectomy. If the HIDA scan is negative however GI consultation will be requested. Time Spent With Patient Time: Total time managing care of this patient today ____ minutes. Quality Stroke Does the patient have a stroke diagnosis?: No VTE Prior VTE?: No VTE Risk Level:: Medical - low VTE Device Contraindication: N/A - Device Ordered VTE Drug Contraindication: Treatment Not Indicated Procedures Date of Service Date of Service: 11/01/22
--- NOTE | 2022-11-01 11:05 | MHC.CM.PN ---
CM MET WITH PT AT BEDSIDE. PT LIVES WITH 2 SMALL CHILDREN. INDEPENDENT AT BASELINE. EMPLOYED F/T. +COVID VAX X1 NO HCP PCP AT [facility]. DP: HOME, NO SERVICES ANTICIPATED. FAMILY WILL TRANSPORT. CM WILL CONTINUE TO FOLLOW FOR CHANGE IN DC NEEDS/PLAN
[2022-11-01] MEDS: 0.9 % Sodium Chloride Flush 3 ML SYRINGE IVFLUSH (12:30)
--- NOTE | 2022-11-01 14:33 | HO.ANESPROP2 ---
HPI - Anesthesia Eval Consult details Narrative: 32 yo F admitted for lap neetu. HCG negative. PMFSH Active Problems Active Problems: All Active Problems (Updated 10/31/22 @ 20:40 by Aram Tabor MD) Asthma (Acute) Encounter for IUD removal (Acute) Tear of medial meniscus of left knee (Acute) Tears of meniscus and ACL of left knee (Acute) S/P medial meniscal repair (Acute) Enteritis (Acute) Chronic diarrhea (Acute) STD exposure (Acute) Chlamydia contact (Acute) Cervical cancer screening (Acute) Gallbladder polyp (Acute) Biliary colic (Acute) Pulmonary nodule, right (Acute) Bronchitis (Acute) Past Medical History Medical History Asthma Bronchitis Pulmonary nodule, right Family History Family History Maternal Grandfather Pancreas cancer Family history of problems with anesthesia: No Surgical History Surgical History History of esophagogastroduodenoscopy (EGD) History of tonsillectomy Hx of adenoidectomy Hx of arthroscopy of knee Hx of section Hx of colonoscopy History of Problems with Anesthesia: No Social History Social History Household Members: Family Housing: Apartment Do you presently have visiting nurse or other home services: No Alcohol intake: current Alcohol intake frequency: does not drink Patient Tobacco Use Status: Former Tobacco user Quit Date: 3 years ago Smoked in Last 30 Days: No e-Cigarette/Vaping Use: Former Use Patient Interested in Nicotine Replacement: No Patient Given Instructions on How to Stop Smoking: No Second Hand Smoke Exposure: No Substance Use Type: Marijuana Substance Use Frequency: Monthly Last Used Substance: Unknown Currently Displaying Signs/Symptoms of Drug Intoxication Withdrawal: No Any prior treatment program specific to substance use: No Have you been hit, kicked, punched, or otherwise hurt by someone within the past year? If so, by whom?: No Do you feel safe in your current relationship?: Yes Is there a partner from a previous relationship who is making you feel unsafe now?: No Are you made to feel afraid or neglected: No Are you DNR?: No Advance Directives: No Advance Directives Information Provided: No Do you have thoughts of harming others: None Do you have a plan to hurt others: No Plan Recently lost weight without trying: No Eating poorly because of decreased appetite: No Nutrition Risks: No Nutritional Risk Patient : No : No Poor oral hygiene: No service: No Current occupational status: employed 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 handed Meds Allergies Allergy/AdvReac Type Severity Reaction Status Date / Time oxycodone [OXYCODONE] Allergy Unknown ITCHING, Verified 10/31/22 14:39 NAUSEA, HOT Active Medications: Current Medications Sodium Chloride (Ns) 1,000 mls @ 100 mls/hr IVCONT .Q10H [facility] Last Infusion: 11/01/22 12:31 Dose: Infused Morphine Sulfate (Morphine Sulfate 2 Mg/Ml Cartridge) 3 mg IVPUSH Q3H PRN; Protocol PRN Reason: pain, severe Last Admin: 11/01/22 12:30 Dose: 3 mg Ondansetron HCl (Ondansetron Hcl 4 Mg/2 Ml Vial) 4 mg IVPUSH Q6H PRN PRN Reason: nausea Last Admin: 10/31/22 22:50 Dose: 4 mg Sodium Chloride (0.9 % Sodium Chloride Flush 3 Ml Syringe) 3 ml IVFLUSH QSHIFT [facility] Last Admin: 11/01/22 12:30 Dose: 3 ml Home Medications Medication Instructions Recorded Confirmed Last Taken Type ibuprofen 200 mg tablet 400 mg PO Q6H PRN Pain 10/31/22 11/01/22 10/28/22 History Exam Exam Date and Time: November 01, 2022 1433 Height,Weight and Vital Signs: Height 5 ft Weight 99.79 kg Last Vital Signs Temp 97 F 11/01/22 14:15 Pulse 70 11/01/22 14:15 Resp 18 11/01/22 14:15 BP 130/85 11/01/22 14:15 Pulse Ox 98 11/01/22 14:15 O2 Del Method Room Air 11/01/22 14:15 Pertinent Lab Results Pertinent Lab Results: Laboratory Tests 10/31/22 10/31/22 10/31/22 16:29 16:29 16:38 WBC 9.0 RBC 4.48 Hgb 13.6 Hct 40.7 MCV 90.8 MCH 30.4 MCHC 33.4 RDW 12.1 Plt Count 264 MPV 10.4 Immature Gran % (Auto) 0.3 Neut % (Auto) 59.4 Lymph % (Auto) 30.5 [place] % (Auto) 7.0 Eos % (Auto) 2.5 Baso % (Auto) 0.3 Lymph # (Auto) 2.8 [place] # (Auto) 0.6 Eos # (Auto) 0.2 Baso # (Auto) 0.0 Abs Immat Gran (auto) 0.03 Absolute Neuts (auto) 5.4 Absolute Nucleated RBC 0.000 Nucleated RBC % (auto) 0.0 Sodium 139 Potassium 3.5 Chloride 108 Carbon Dioxide 21 L Anion Gap 14 BUN 11 Creatinine 0.83 Estim Creat Clear Calc 101.9 Estimated GFR > 60 Random Glucose 81 Lactic Acid Calcium 9.6 D Total Bilirubin 0.3 Direct Bilirubin 0.1 AST 13 ALT 17 Alkaline Phosphatase 69 Total Protein 7.5 Albumin 4.2 Lipase 41 Urine Color Yellow Urine Appearance Cloudy Urine pH 5.5 Ur Specific [place] >= 1.030 H Urine Protein Negative Urine Glucose (UA) Negative Urine Ketones Trace Urine Blood Negative Urine Nitrite Negative Ur Leukocyte Esterase Negative Urine RBC 3-5 H Urine WBC 0-5 Ur Squamous Epith Cells 11-20 Urine Bacteria 3+ Hyaline Casts 0-2 Urine Test 10/31/22 10/31/22 11/01/22 16:38 20:06 06:04 WBC 7.3 RBC 4.06 L Hgb 12.3 Hct 37.3 MCV 91.9 MCH 30.3 MCHC 33.0 RDW 12.0 Plt Count 227 MPV 10.6 Immature Gran % (Auto) 0.4 Neut % (Auto) 57.3 Lymph % (Auto) 32.1 [place] % (Auto) 6.6 Eos % (Auto) 3.1 Baso % (Auto) 0.5 Lymph # (Auto) 2.4 [place] # (Auto) 0.5 Eos # (Auto) 0.2 Baso # (Auto) 0.0 Abs Immat Gran (auto) 0.03 Absolute Neuts (auto) 4.2 Absolute Nucleated RBC 0.000 Nucleated RBC % (auto) 0.0 Sodium Potassium Chloride Carbon Dioxide Anion Gap BUN Creatinine Estim Creat Clear Calc Estimated GFR Random Glucose Lactic Acid 1.0 Calcium Total Bilirubin Direct Bilirubin AST ALT Alkaline Phosphatase Total Protein Albumin Lipase Urine Color Urine Appearance Urine pH Ur Specific [place] Urine Protein Urine Glucose (UA) Urine Ketones Urine Blood Urine Nitrite Ur Leukocyte Esterase Urine RBC Urine WBC Ur Squamous Epith Cells Urine Bacteria Hyaline Casts Urine Test NEGATIVE 11/01/22 11/01/22 06:04 06:04 WBC RBC Hgb Hct MCV MCH MCHC RDW Plt Count MPV Immature Gran % (Auto) Neut % (Auto) Lymph % (Auto) [place] % (Auto) Eos % (Auto) Baso % (Auto) Lymph # (Auto) [place] # (Auto) Eos # (Auto) Baso # (Auto) Abs Immat Gran (auto) Absolute Neuts (auto) Absolute Nucleated RBC Nucleated RBC % (auto) Sodium 138 Potassium 3.8 Chloride 109 H Carbon Dioxide 19 L Anion Gap 14 BUN 8 L Creatinine 0.77 Estim Creat Clear Calc 110.1 Estimated GFR > 60 Random Glucose 92 Lactic Acid Calcium 8.7 D Total Bilirubin 0.5 Cancelled Direct Bilirubin 0.2 Cancelled AST 10 Cancelled ALT 15 Cancelled Alkaline Phosphatase 59 Cancelled Total Protein 6.3 L Cancelled Albumin 3.5 Cancelled Lipase Urine Color Urine Appearance Urine pH Ur Specific [place] Urine Protein Urine Glucose (UA) Urine Ketones Urine Blood Urine Nitrite Ur Leukocyte Esterase Urine RBC Urine WBC Ur Squamous Epith Cells Urine Bacteria Hyaline Casts Urine Test Airway Mallampati Class: II TM Dist: >3cm Neck ROM: Full Loose/Missing/Broken Teeth: No Heart: S1S2 Lungs: CTAB Other: + Nose piercings x2 Assessment and Plan Final Anesthetic Review Family History of Problems with Anesthesia: No History of Problems with Anesthesia: No ASA Class: III Final Preanesthetic Review: No Changes in Pt Med Stat, Meds/Allgs Chart Reviewed, Consent Obtained/Reviewed and Anes Risks/Benef Reviewed Patient Risk: Low Procedure Risk: Low Anesthetic Plan Anesthetic Plan: GA and Agree w/ Assess. and Plan Disposition: Standard PACU
--- NOTE | 2022-11-01 18:00 | W.PM.OPN ---
Operative Note Operative Note Date of Service: 11/01/22 Narrative: Preoperative diagnosis: acute cholecystitis, cholelithiasis, gallbladder polyp Postoperative diagnosis: Same Procedure: Laparoscopic cholecystectomy Surgeon: Delbert Blanca MD Peer Financial Counselor: Jesus Valenzuela MD Anesthesia: General endotracheal Indications for procedure: 32-year-old female patient with diffuse abdominal pain found to have gallstones in the gallbladder. On examination patient is tender in the right upper quadrant with a positive Johnson sign. Findings are suggestive of acute cholecystitis due to cholelithiasis. Operative findings: Edematous gallbladder with gallstones. No evidence of chronic cholecystitis. Specimen: gallbladder Estimated blood loss: Less than 2 mL Complications: none Procedure details: Patient was brought to the OR and placed in a supine position. After administering general anesthesia the patient's abdomen was prepped with ChloraPrep and draped in a sterile fashion. Local anesthesia consisting of 0.5% Sensorcaine without epinephrine was infiltrated in a periumbilical region. A 5 mm incision was made above the umbilicus in a transverse fashion. The Veress needle was then inserted while elevating abdominal cavity with towel clips. After positive drop test the abdomen was insufflated to a pressure of 15 mm of mercury. The Veress needle was then removed and a 5 mm trocar inserted. The camera was inserted in the abdomen explored. A 12 mm trocar was then placed in the epigastrium. Two 5 mm trocars placed in the right upper quadrant by the technical administrative assistant. The patient was placed in reverse Trendelenburg positioning and rotated to the left. The gallbladder was grasped with the fundus and retracted cephalad by the technical administrative assistant. The infundibulum was then grasped and retracted away from the liver bed, also by the technical administrative assistant. The Dolphin dissected was then used by the surgeon to dissect the peritoneum off the infundibulum to reveal the junction with the cystic duct. Cystic artery was noted slightly medial and posterior to the cystic duct. After obtaining a critical view the cystic duct was doubly clipped and divided. The cystic artery was then doubly clipped and divided. The gallbladder was then dissected off the liver bed using electrocautery with an L hook. Hemostasis was assured all times using the electrocautery. When the gallbladder is completely dissected off the liver bed was placed in an Endo-Catch bag and brought out through the epigastric incision. The gallbladder was sent to pathology for further examination. The abdomen was then re-examined. The liver bed was irrigated and suctioned dry. No bleeding or bile leak could be identified. CO2 was then evacuated and all trocars removed. Fascia was closed at the epigastric incision using a [id number] 0 Polysorb suture. Skin was closed in all incisions using a subcuticular 4 0 Polysorb suture by both the surgeon and technical administrative assistant. Sterile dressings consisting of Steri-Strips, 2 x 2 gauze, and Tegaderm were then applied. The patient tolerated the procedure well. Sponge instrument and needle counts reported as correct. The patient was transferred to PACU in stable condition.
[2022-11-01] MEDS: Acetaminophen 1,000 MG/100 ML PIGGYBACK 400 MG IV ×2 (18:14→23:18)
[2022-11-01] MEDS: ondansetron HCL 4 MG/2 ML VIAL IVPUSH (21:48)
[2022-11-01] MEDS: HYDROmorphone HCl 0.5 MG/0.5 ML SYRINGE IVPUSH (21:49)
--- NOTE | 2022-11-01 21:54 | MHC.PIE ---
p; pt c/o pain 01/14 n/v. note; zofran given in pacu at 1740 i; dr cruz notified; new order give early dose zofran now e; will cont to monitor
[2022-11-02] MEDS: HYDROmorphone HCl 0.5 MG/0.5 ML SYRINGE IVPUSH ×3 (00:50→07:34)
[2022-11-02 03:15] VITALS: BP 108/56; PULSE 78; RESP 16; TEMP 36.1; O2SAT 100
[2022-11-02] MEDS: 0.9 % Sodium Chloride 1,000 ML 100 ML IVCONT (05:47)
[2022-11-02] MEDS: Acetaminophen 1,000 MG/100 ML PIGGYBACK 400 MG IV (05:47)
[2022-11-02 07:32] VITALS: BP 99/54; PULSE 73; RESP 20; TEMP 36.2; O2SAT 100
[2022-11-02] MEDS: 0.9 % Sodium Chloride Flush 3 ML SYRINGE IVFLUSH (07:39)
[2022-11-02 08:11] VITALS: BP 129/70
[2022-11-02] MEDS: HYDROmorphone HCl 2 MG TABLET PO (12:09)
--- NOTE | 2022-11-02 12:46 | HO.POSTANES ---
Post Anesthesia Evaluation Post Anesthesia Evaluation Date of Service: 11/02/22 Vital Signs: Vital Signs Temp Pulse Resp BP Pulse Ox O2 Del Method O2 Flow Rate 11/02/22 08:11 129/70 11/02/22 07:32 97.2 F 73 20 99/54 L 100 Room Air 11/02/22 03:15 97.0 F 78 16 108/56 L 100 Nasal Cannula 2 Anesthesia: General Endotracheal-GETA Mental Status: Awake Pain Control: Satisfactory Nausea/Vomiting: None Hydration: Adequate Anesthesia-Related Issues: No Anes. Related Issues
--- NOTE | 2022-11-02 14:28 | P.PNGS_ITS ---
Subjective Subjective Date of Service: 11/02/22 Interval history: Aside from incisional discomfort, patient is doing well patient has time diet. She is out of bed ambulating. Patient wishes to be discharged home. Physical Exam Vital Signs: Vital Signs: Last Vital Signs Temp 97.2 F 11/02/22 07:32 Pulse 73 11/02/22 07:32 Resp 20 11/02/22 07:32 BP 129/70 11/02/22 08:11 Pulse Ox 100 11/02/22 07:32 O2 Del Method Room Air 11/02/22 07:32 O2 Flow Rate 2 11/02/22 03:15 BMI result Body Mass Index 43.0 Eyes: Other: Anicteric GI: Other: abdomen soft. Wound dressings clean dry and intact. Objective Data Active Medications Hydromorphone HCl (Hydromorphone Hcl 2 Mg Tablet) 2 mg PO Q6H PRN PRN Reason: Pain, Moderate(Pain Scale 4-6) Last Admin: 11/02/22 12:09 Dose: 2 mg Documented By: DANIEL Hydromorphone HCl (Hydromorphone Hcl 0.5 Mg/0.5 Ml Syringe) 0.5 mg IVPUSH Q3H PRN; Protocol PRN Reason: Pain, Severe (Pain Scale 7-10) Last Admin: 11/02/22 07:34 Dose: 0.5 mg Documented By: DANIEL Acetaminophen (Ofirmev) 1,000 mg in 100 mls @ 400 mls/hr IV Q6H [facility] Stop: 11/02/22 18:14 Last Admin: 11/02/22 12:10 Dose: Not Given Documented By: DANIEL Non-Admin Reason: exceeding dose by Corinne, made aware Ondansetron HCl (Ondansetron Hcl 4 Mg/2 Ml Vial) 4 mg IVPUSH Q6H PRN PRN Reason: nausea Last Admin: 11/01/22 21:48 Dose: 4 mg Documented By: MORENITA Comments: early dose per Sodium Chloride (0.9 % Sodium Chloride Flush 3 Ml Syringe) 3 ml IVFLUSH [facility] Last Admin: 11/02/22 07:39 Dose: 3 ml Documented By: DANIEL Zolpidem Tartrate (Zolpidem Tartrate 5 Mg Tablet) 5 mg PO BEDTIME PRN PRN Reason: Insomnia Labs 11/01/22 06:04 11/01/22 06:04 Microbiology Microbiology Results: Microbiology 10/31/22 20:06 Blood Culture - Preliminary Blood - Venous No growth after 24 hours. 10/31/22 20:07 Blood Culture - Preliminary Blood - Venous No growth after 24 hours. Procedures Date of Service Date of Service: 11/02/22 Progress Note: A&P Assessment and plan (1) Biliary colic: Status: Acute Plan Current plan is discharge patient home with follow-up with Dr. Blanca And approximately 1 week's time. She will be given analgesics and local instructions. Time Spent With Patient Time: Total time managing care of this patient today ____ minutes. Quality Stroke Does the patient have a stroke diagnosis?: No VTE Prior VTE?: No VTE Risk Level:: Medical - low VTE Device Contraindication: N/A - Device Ordered VTE Drug Contraindication: Treatment Not Indicated
--- NOTE | 2022-11-02 15:50 | MHC.CM.PN ---
PT WILL DC HOME TODAY WITH NO SERVICES VIA FAMILY TRANSPORT
--- NOTE | 2022-11-06 10:45 | PM.DS ---
DS: Providers Provider Date of Service: 11/02/22 Date of admission: 10/31/22 22:29 Primary care physician: Carleen Gloria MD Attending physician on admission: Delbert Blanca Attending physician on discharge: Corona Valenzuela DS: Diagnosis Discharge Diagnosis (1) Biliary colic: Status: Acute DS: Summary Hospital Course Hospital Course: HPI AT ADMISSION: Patient was previously evaluated in the office on 10/31/2022 and subsequently was referred to the emergency department for further evaluation due to increased abdominal pain. As previously noted, she is a 32-year-old female patient presenting with complaints of diffuse abdominal pain of 3 day duration. She reports a long history of abdominal pain radiating to the back bilaterally. The pain is now associated with nausea, vomiting, diarrhea. She was previously felt to have Crohn's disease although endoscopy with biopsy were negative. She was evaluated in the emergency department and a CT abdomen and pelvis did reveal an area of enteritis involving the terminal ileum. She was known to have a gall bladder polyp and this was again identified by ultrasound. Tenderness was noted with palpation of the gallbladder therefore it was suggested that her pain may be related to the gallbladder. The pain is also increased with ambulation. A repeat CT and ultrasound again revealed gallstones and she was therefore admitted for management of the gallstones. A HIDA scan is requested and pending at this time. HOSPITAL COURSE: She was admitted to the surgical service for further work up and management of the RUQ abd pain. The patient was reevaluated and had persistent pain in the RUQ now radiating to the back.? HIDA scan does show visualization of the gallbladder and small bowel which goes against acute cholecystitis however she was diffusely tender but more increased in the right upper quadrant.? The only abnormal finding is the gallstone at the neck of the gallbladder however her symptoms were suggestive of acute cholecystitis.? It was therefore recommended to proceed with a laparoscopic or possible open cholecystectomy.? She understood that the cholecystectomy may not improve her pain.? She was therefore added on to the operative schedule for that day.? On 11/01/22, a laparoscopic cholecystectomy was performed by Dr. Blanca without complication. She was found to have an edematous gallbladder with gallstones.?The patient tolerated the procedure well. She had an uncomplicated recovery course. On POD #1, she felt well with adequate pain control. She was tolerating a solid diet. She was OOB and ambulating without difficulty. She had a benign abdominal exam with clean and intact dressings. She felt ready for discharge. She was discharged to home on 11/02/22 in stable condition. She is to follow up with Dr. Blanca in 1 week in the office. Status at Discharge Functional status at discharge: independent ambulation Overall status at discharge: patient is progressing back to baseline Time Spent with Patient Time attestation: Total time managing care of this patient today ____ minutes. Discharge coordination time: Less than 30 minutes Quality: Safe Use of Opioids Does Pt have an Active Cancer Diagnosis on the Problem List?: No Quality: Stroke Does the patient have a stroke diagnosis?: No Physical Exam Vital Signs: Vital Signs: Last Vital Signs Temp 97.2 F 11/02/22 07:32 Pulse 73 11/02/22 07:32 Resp 20 11/02/22 07:32 BP 129/70 11/02/22 08:11 Pulse Ox 100 11/02/22 07:32 O2 Del Method Room Air 11/02/22 07:32 O2 Flow Rate 2 11/02/22 03:15 BMI result Body Mass Index 43.0 Const: General: comfortable, no acute distress and alert Orientation/consciousness: patient oriented x3 Resp: Effort & Inspection: normal respiratory effort GI: Inspection: No distended and Yes incision (dressings c/d/i) Palpation (GI): Soft to palpation, no guarding and not rigid Skin: General skin exam: no rashes or lesions noted Neuro: General: patient oriented x3 DS: Data Data Completed and Pending Completed studies during hospitalization [Text1]: 11/01/22 17:37 Surgical [PTH] Routine Gallbladder, cholecystectomy:? Chronic cholecystitis; cholesterolosis. Procedures Excision of Ascending Colon, Via Natural or Artificial Opening Endoscopic, Diagnostic (10/25/21) Excision of Ileum, Via Natural or Artificial Opening Endoscopic, Diagnostic (10/25/21) Excision of Sigmoid Colon, Via Natural or Artificial Opening Endoscopic, Diagnostic (10/25/21) Excision of Stomach, Pylorus, Via Natural or Artificial Opening Endoscopic, Diagnostic (10/25/21) Resection of Gallbladder, Percutaneous Endoscopic Approach (10/31/22) Discharge Plan Discharge Anticipated Discharge Date/Time: 11/02/22 16:30 Patient Disposition: Home, Self-Care Discharge Diagnosis: Acute cholecystitis Referrals: Physician,Unknown J [Physician] - 1 Week Discharge Medications: New ibuprofen 800 mg tablet 800 mg PO Q8H PRN (Reason: pain) Qty: 30 0RF Discontinued ibuprofen 200 mg Tablet 400 mg PO Q6H PRN (Reason: Pain) Discharge Orders: Discharge Order (Routine); Ordered 11/02/22 Ordered By: Corona Valenzuela Diet: Advance to usual diet Activity on Discharge: No heavy lifting Stand Alone Forms: Patient Portal Discharge page Activity Restrictions/Additional Instructions: Ice to wound 20 minutes several times today and tomorrow. May shower in 2 days. Remove outside dressing only. Leave Steri-Strips intact. No strenuous activities Care Plan Goals: return to normal activity and diet Health Concerns: diffuse abdominal pain Plan of Treatment: laparoscopic cholecystectomy Assessment: acute cholecystitis, cholelithiasis, gallbladder polyp Discharge Date/Time: 11/02/22 16:02
== END 2022-11-02 16:02 | disposition home or self-care (01) | DRG 263 ==
LOC: HO.ED 20:40 → HO.EDOVER 22:36 → HO.S3 11-01 00:24
PROVIDERS: Physician Assistant Medical; Surgery; Admitting Provider Surgery; Emergency Provider Internal Medicine; PCP Internal Medicine; Visit Provider Surgery
PROC: 0FT44ZZ Resection of Gallbladder, Percutaneous Endoscopic Approach (ICD-10-PCS; CPT 47562; principal; 2022-11-01 14:10)
DX: K80.00 Calculus of gallbladder with acute cholecystitis without obstruction (principal)
CPT/HCPCS: 47562; 36415; 74177; 76705; 78226; 80048; 80076; 81001; 81025; 83605; 83690; 85025; 87040; 88304; 99202; 99285; A9537; J0131; J1170; J1885; J2250; J2270; J2405; J2795; J3010; Q9967

== ENCOUNTER → 2022-10-31 22:29 | Outpatient (BNV) | payer OTHER, SELFPAY | PROVIDERS: Admitting Provider Surgery; Emergency Provider Internal Medicine; Visit Provider Surgery | DX: K80.50 Calculus of bile duct without cholangitis or cholecystitis without obstruction (principal) | CPT/HCPCS: 47562; 99024; 99222 ==

== ENCOUNTER 2023-06-28 23:11 | Emergency (ER) | payer OTHER, SELFPAY ==
--- NOTE | ~2023-06-28 | CT_ITS ---
EXAMINATION: CT ABDOMEN AND PELVIS WITHOUT CONTRAST CLINICAL INFORMATION: Flank pain. COMPARISON: 10/31/2022. TECHNIQUE: Multidetector volumetric imaging was performed from the superior aspect of the liver through the pubic symphysis. Sagittal and coronal reformatted images were obtained on the technologist's workstation. This CT examination was performed using dose optimization techniques as appropriate, variously including the following: *Automated exposure control *Adjustment of mA and/or kV according to patient size (this includes techniques or standardized protocols for targeted exams where dose is matched to indication/reason for exam; i.e. extremities or head) *Use of iterative reconstruction technique DLP: 705 mGy-cm FINDINGS: LUNG BASES: The visualized lung bases are unremarkable. LIVER, GALLBLADDER, AND BILIARY TREE: The liver is normal in size, shape, and attenuation. No focal hepatic lesion or biliary ductal dilatation is present. There has been a prior cholecystectomy. PANCREAS: Unremarkable. SPLEEN: Unremarkable. ADRENAL GLANDS: Unremarkable. KIDNEYS AND URETERS: The kidneys are normal in size, shape, and attenuation. No hydronephrosis, hydroureter, or calculi seen. No perinephric stranding. BLADDER: Unremarkable. GASTROINTESTINAL TRACT: There are prominent fluid-filled small bowel loops. The appendix is unremarkable. ABDOMINAL WALL: No significant hernia is appreciated. LYMPH NODES: Normal. VASCULAR: Unremarkable. PELVIC VISCERA: Unremarkable. OSSEOUS STRUCTURES: Unremarkable. CT/CT abdomen pelvis wo IV con IMPRESSION: Prominent fluid-filled small bowel loops of uncertain significance. This may be seen with a mild enteritis. No renal calculi or renal collecting system obstructive change. Fleischner guidelines were followed.
[2023-06-28 23:26] VITALS: BP 124/88; PULSE 88; RESP 16; TEMP 36.7; O2SAT 98; BMI 42.9
--- NOTE | 2023-06-28 23:52 | MHC.EDTECH ---
Patient brought into triage area,labs,and urine obtained and sent to lab.
[2023-06-29 00:17] LABS: Hematocrit 39.6 % (37.0-47.0); Hemoglobin 13.5 g/dl (12.0-16.0); Mean Corpuscular HGB Conc 34.1 g/dl (31.0-35.0); Mean Corpuscular Hemoglobin 30.5 pg (27.0-33.0); Mean Corpuscular Volume 89.4 fL (80.0-98.0); Mean Platelet Volume 9.9 fL (9.4-12.3); Platelet Count 305 X10*3/uL (160-400); Red Blood Count 4.43 X10*6/uL (4.20-5.50); Red Cell Distribution Width 12.5 % (11.0-16.0); White Blood Count 9.5 X10*3/uL (4.8-10.8)
[2023-06-29 00:19] LABS: Appearance Urine Cloudy; Color Urine Yellow; Glucose Urine UA Negative (Negative); Leukocyte Esterase Urine Negative (Negative); Nitrite Urine Negative (Negative); Specific Gravity - Urine 1.025 (1.005-1.025); UMIC TRIGGER UACC YES; Urine Blood Trace (Negative); Urine Ketones Negative (Negative); Urine Protein Negative (Neg-Trace)
[2023-06-29 00:21] LABS: UPreg QC Valid YES; Urine Pregnancy NEGATIVE (NEGATIVE)
[2023-06-29 00:24] LABS: Bacteria Urine 3+ (None Seen); Hyaline Casts Urine 0-2 /LPF (0-2); WBC Urine 0-5 /HPF (0-5)
[2023-06-29 00:29] LABS: Alanine Aminotransferase 23 U/L (0-31); Albumin Level 4.1 g/dL (3.5-5.0); Alkaline Phosphatase 77 U/L (39-117); Anion Gap 14 (12-20); Aspartate Amino Transferase 17 U/L (5-31); Bilirubin Total 0.6 mg/dL (0.0-1.0); Blood Urea Nitrogen 9 mg/dL (9-16); Calcium 9.2 mg/dL (8.4-10.2); Carbon Dioxide 23 mmol/L (22-29); Chloride 110 mmol/L (96-108); Creatinine Clr Calc Pharmacy 105.7; Estimated Glomerular Filt Rate > 60; Glucose Random 91 mg/dL (60-115); Potassium 3.8 mmol/L (3.3-5.1); Sodium 143 mmol/L (135-145); Total Protein 7.3 g/dL (6.5-8.0)
[2023-06-29 00:43] VITALS: BP 137/95; PULSE 78; RESP 14; TEMP 36.8
--- NOTE | 2023-06-29 00:47 | ED.GENADULT ---
HPI - General Adult General Chief complaint: General Medical Stated complaint: kidney infection? Time Seen by Provider: 06/29/23 00:45 Source: patient and RN notes reviewed Mode of arrival: ambulatory Limitations: no limitations History of Present Illness HPI narrative: This is a 32-year-old female, with a past medical history of asthma, bronchitis, pulmonary right nodule, who presents emergency department complaints of bilateral flank pain and nausea x2 days. Patient denies any recent trauma or injury to her back. No heavy lifting or falls. Patient reports that her pain is gradual however no reports making, spasm, sharp pain that is constant and worsens with positional changes. Denies similar symptoms the past. She states that she has a history of urinary tract infections however denies any fevers, chills, dysuria, hematuria, urinary frequency, urgency. Denies any abdominal pain. No other complaints or concerns at this time. MD complaint: Back pain Onset (ago): day(s) Radiation: non-radiation Severity: moderate Quality: stabbing Pain Consistency: constant Relieving factors: immobilization Exacerbating factors: none Associated symptoms: nausea/vomiting Treatments prior to arrival: none Related Data Previous Rx's Medication Instructions Recorded ibuprofen 800 mg tablet 800 mg PO Q8H PRN pain #30 tabs 11/02/22 Allergies Allergy/AdvReac Type Severity Reaction Status Date / Time oxycodone [OXYCODONE] Allergy Unknown ITCHING, Verified 06/28/23 23:41 NAUSEA, HOT Review of Systems Review of Systems: Yes all other systems are reviewed and are negative Constitutional: Constitutional: Reports as per [facility] Past Medical History Attestation statement: The following information was validated with the patient. Medical History Pulmonary nodule, right Bronchitis Asthma Surgical History Hx of arthroscopy of knee History of esophagogastroduodenoscopy (EGD) Hx of colonoscopy Hx of adenoidectomy History of tonsillectomy Hx of section Family History Family History Maternal Grandfather Pancreas cancer Social History Social History Household Members: Family Housing: Apartment Do you presently have visiting nurse or other home services: No Alcohol intake: current Alcohol intake frequency: holidays/special occasions only Patient Tobacco Use Status: Former Tobacco user Quit Date: 3 years ago Smoked in Last 30 Days: No e-Cigarette/Vaping Use: Former Use Second Hand Smoke Exposure: No Use of substances other than those prescribed or required for medical reasons: No Substance Use Type: Marijuana Advance Directives: No Advance Directives Information Provided: No Patient : No service: No Current occupational status: employed 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 handed Physical Exam ED Vital Signs: Vital Signs - 24 hr 06/28/23 23:26 06/29/23 00:43 06/29/23 03:16 Temperature 98.0 F 98.3 F 97.5 F Pulse Rate 88 78 68 Respiratory Rate 16 14 14 Blood Pressure 124/88 137/95 H 132/78 Pulse Oximetry 98 95 Oxygen Delivery Method Room Air Room Air Room Air BMI result Body Mass Index 42.9 Const General: cooperative, comfortable and no acute distress Orientation/consciousness: patient oriented x3 Limitations: no limitations HENMT Head: Yes normal to inspection, Yes normocephalic and Yes atraumatic Ears: hearing grossly normal bilaterally General nose exam: Normal external nose present Face and sinus: Yes normal facial exam Mouth: Normal oral and palatal mucosa present, oropharynx normal and moist mucous membranes Throat: Yes posterior oropharynx normal Eyes General: appearance normal, both eyes and all related structures Eyelids: Yes eyelids normal Conjunctivae: conjunctivae normal Sclerae: sclerae normal Pupils: Equal, round and reactive pupils present EOM: EOMs intact bilaterally Neck Neck: Yes normal visual inspection, Yes full ROM and Yes no lymphadenopathy Lymphatic: no lymphadenopathy noted Chest Chest palpation & inspection: normal inspection of the chest Resp Effort & Inspection: normal respiratory effort and able to speak in complete sentences Auscultation: clear to auscultation bilaterally, no crackles, no rales, no rhonchi and no wheezes Cardio Rate: regular rate Rhythm: regular rhythm Heart sounds: S1 normal heart sound present and S2 normal heart sound present GI Other: Abdomen is soft and nontender. Inspection: Yes normal to inspection Back/Spine/Pelvis Other: Tenderness palpation along the bilateral lumbar paraspinous muscles with spasm noted, positive CVA tenderness bilaterally. Skin General skin exam: no rashes or lesions noted Trauma: no lacerations or abrasions Wounds: no wounds Neuro General: patient oriented x3 and moves all extremities Cranial nerves: Yes Equal, round and reactive pupils present Extrem General: Yes normal to inspection Right upper extremity: normal to inspection Left upper extremity: normal to inspection Right lower extremity: normal to inspection Left lower extremity: normal to inspection Course Reevaluation(s) Reevaluation #1: Patient re-evaluated, not feeling any better after receiving IV fluids, and IV Toradol. CT abdomen and pelvis still pending at this time. I reviewed the CT scan pending the radiologist's interpretation, no obvious stone found. Patient will be medicated with lidocaine patch as well as Valium as this may be musculoskeletal related. Time: 02:27 Reevaluation #2: Sign-out given to my colleague, Dr. Coats pending CT abdomen Time: 03:04 Reevaluation #3: The patient was signed out to me pending the results of a CT scan of the abdomen and pelvis looking for a possible kidney stone. The CT scan does not show a kidney stone or any other definite acute explanation for the patient's back pain. I examined the patient. She was feeling much better and was comfortable being discharged. She will follow up with her PCP at [facility] in [place]. Time: 04:30 Medications Administered Discontinued Medications Generic Name Dose Route Start Last Admin Trade Name Lizy PRN Reason Stop Dose Admin Diazepam 2 mg 06/29/23 02:22 06/29/23 02:39 Diazepam 2 Mg Tablet PO 06/29/23 02:23 2 mg ONCE ONE Administration Sodium Chloride 1,000 mls @ 999 mls/hr 06/29/23 00:55 06/29/23 02:42 Ns IV 06/29/23 01:55 Infused .Q1H1M ONE Infusion Ketorolac Tromethamine 30 mg 06/29/23 00:55 06/29/23 01:31 Ketorolac Tromethamine 30 Mg/Ml Vial IVPUSH 06/29/23 00:56 30 mg ONCE ONE Administration Lidocaine 1 patch 06/29/23 02:28 06/29/23 02:39 Lidocaine 4 % Patch Adh..Patch TRANSDERMA 06/29/23 02:29 1 patch ONCE ONE Administration Protocol Ondansetron HCl 4 mg 06/29/23 00:55 06/29/23 01:32 Ondansetron Hcl 4 Mg/2 Ml Vial IVPUSH 06/29/23 00:56 4 mg ONCE ONE Administration Medical Decision Making Medical Decision Making [facility] Narrative: This is a 32-year-old female presenting to the emergency department with complaints of bilateral flank pain since yesterday. Patient denies any recent trauma or injury. On arrival, vital signs within normal limits. Patient with tenderness palpation in the bilateral paraspinous muscles as well as positive CVA tenderness. Given positive CVA tenderness as well as trace blood and rbc's found in the urine, concerning for nephrolithiasis. Differential diagnoses include obstructive uropathy, nephrolithiasis, acute cystitis, muscle spasm. No back pain red flags on history or physical. Presentation not consistent with malignancy (lack of history of malignancy, lack of B symptoms), fracture (no trauma, no bony tenderness to palpation), cauda equina (no bowel or urinary incontinence/retention, no saddle anesthesia, no distal weakness). Given presentation, will obtain labs, UA, CT abdomen and pelvis. Differential Diagnosis Differential Diagnoses: The differential diagnosis associated with the presentation includes See above Admission/Observation Consideration of admission/observation: Escalation of care including admission/observation considered Escalation of care including admission/observation considered however given workup today not warranted at this time. Lab Data [facility] Lab Attestation statement: I reviewed the patient's lab results. No leukocytosis, stable H&H, chemistry within normal limits. Trace blood, and rbc's, urine does appear to be contaminated. 06/28/23 23:57 06/28/23 23:57 Labs: Lab Results 06/28/23 Range/Units 23:57 WBC 9.5 (4.8-10.8) X10*3/uL RBC 4.43 (4.20-5.50) X10*6/uL Hgb 13.5 (12.0-16.0) g/dl Hct 39.6 (37.0-47.0) % MCV 89.4 (80.0-98.0) fL MCH 30.5 (27.0-33.0) pg MCHC 34.1 (31.0-35.0) g/dl RDW 12.5 (11.0-16.0) % Plt Count 305 D (160-400) X10*3/uL MPV 9.9 (9.4-12.3) fL Absolute Nucleated RBC 0.000 (0.0-0.012) X10*3/uL Nucleated RBC % (auto) 0.0 (0.0-0.2) /100WBC Sodium 143 (135-145) mmol/L Potassium 3.8 (3.3-5.1) mmol/L Chloride 110 H (96-108) mmol/L Carbon Dioxide 23 (22-29) mmol/L Anion Gap 14 (12-20) BUN 9 (9-16) mg/dL Creatinine 0.81 (0.5-1.4) mg/dL Estim Creat Clear Calc 105.7 Estimated GFR > 60 Random Glucose 91 (60-115) mg/dL Calcium 9.2 (8.4-10.2) mg/dL Total Bilirubin 0.6 (0.0-1.0) mg/dL AST 17 (5-31) U/L ALT 23 (0-31) U/L Alkaline Phosphatase 77 (39-117) U/L Total Protein 7.3 (6.5-8.0) g/dL Albumin 4.1 (3.5-5.0) g/dL Urine Color Yellow Urine Appearance Cloudy Urine pH 6.0 (5.0-9.0) Ur Specific [place] 1.025 (1.005-1.025) Urine Protein Negative (Neg-Trace) mg/dL Urine Glucose (UA) Negative (Negative) mg/dL Urine Ketones Negative (Negative) mg/dL Urine Blood Trace H (Negative) Urine Nitrite Negative (Negative) Ur Leukocyte Esterase Negative (Negative) Urine RBC 6-10 H (0-2) /HPF Urine WBC 0-5 (0-5) /HPF Ur Squamous Epith Cells 11-20 (0-2) /HPF Urine Bacteria 3+ (None Seen) Hyaline Casts 0-2 (0-2) /LPF Urine Test NEGATIVE (NEGATIVE) Radiology Impression Discussion of test interpretation with radiology: I have reviewed the radiologist's reading. Discharge Plan Discharge Clinical Impression: Back pain Patient Disposition: Still a Patient Instructions: Acute Low Back Pain (ED), Back Pain (ED) Additional Instructions: You were seen in the emergency department due to back pain. Your blood work today was reassuring. We are sending your urine for further testing, we will call you with any abnormal results. Please drink plenty of fluids and get plenty of rest. Gentle stretching, massage can also help with your symptoms. Follow-up with your primary care physician regarding this visit. If any new or worsening symptoms occur including but not limited to worsening pain, fevers, chills, chest pain, shortness of breath, please return for re-evaluation. Prescriptions: No Action ibuprofen 800 mg tablet 800 mg PO Q8H PRN (Reason: pain) Qty: 30 0RF Referrals: Polina Marmolejo. Lisa Gonzalez [Provider Group] (back pain)
[2023-06-29] MEDS: Ketorolac Tromethamine 30 MG/ML VIAL IVPUSH (01:31)
[2023-06-29] MEDS: 0.9 % Sodium Chloride 1,000 ML 999 ML IV (01:32)
[2023-06-29] MEDS: ondansetron HCL 4 MG/2 ML VIAL IVPUSH (01:32)
[2023-06-29] MEDS: diazePAM 2 MG TABLET PO (02:39)
[2023-06-29] MEDS: Lidocaine 4 % Patch ADH..PATCH 1 PATCH TRANSDERMA (02:39)
[2023-06-29 03:16] VITALS: BP 132/78; PULSE 68; RESP 14; TEMP 36.4; O2SAT 95
[2023-06-29 05:08] VITALS: BP 136/76; PULSE 72; RESP 16; TEMP 36.7; O2SAT 96
== END 2023-06-29 05:08 | disposition home or self-care (01) ==
PROVIDERS: Emergency Medicine; Emergency Provider Emergency Medicine
DX: M54.50 Low back pain, unspecified (principal); R10.9 Unspecified abdominal pain; R11.2 Nausea with vomiting, unspecified; Z79.899 Other long term (current) drug therapy
CPT/HCPCS: 36415; 74176; 80053; 81001; 81025; 85027; 96361; 96374; 96375; 99284; 99285; J1885; J2405

== ENCOUNTER 2024-01-11 15:35 | Emergency (ER) | payer OTHER, SELFPAY ==
--- NOTE | ~2024-01-11 | US_ITS ---
EXAMINATION: US OBSTETRICAL ULTRASOUND CLINICAL INFORMATION: . Vaginal bleeding. Pain. COMPARISON: None available. LMP: October 23, 2023. Gestational age by maternal dates is 11 weeks 3 days. Estimated date of delivery by maternal dates is July 29, 2024. TECHNIQUE: Transabdominal pelvic ultrasound was performed. Images were supplemented by color Doppler. FINDINGS: There is a single intrauterine gestational sac with visible yolk sac, embryo/fetus, and cardiac activity. No significant subchorionic hemorrhage or hematoma is appreciated. HR: 163 beats per minute. CRL (crown rump length): 4.56 cm (11 weeks 3 days +/- 4 days). JOSE (estimated date of delivery): July 29, 2024 +/- 4 days. MATERNAL ADNEXA: The right maternal ovary could not be visualized by the technologist. The left maternal ovary measures 1.9 x 1.3 x 1.6 cm. No maternal adnexal mass is appreciated. No maternal pelvic ascites is seen. US/US OB <= 14 weeks fetus IMPRESSION: 1. Single intrauterine gestation with ultrasound gestational age of 11 weeks 3 days +/- 4 days. 2. Estimated date of delivery is July 29, 2024 +/- 4 days. 3. No maternal adnexal mass or pelvic ascites identified. Electronically signed by: Davidson Burnham MD 01/11/2024 04:25 PM EDT
[2024-01-11 15:46] VITALS: BP 120/74; PULSE 99; RESP 19; TEMP 36.6; O2SAT 98; BMI 42.6
--- NOTE | 2024-01-11 15:46 | ED.GENADULT ---
HPI - General Adult General Chief complaint: Vaginal Bleeding Stated complaint: spotting, 11 wks Source: patient Mode of arrival: ambulatory Limitations: no limitations History of Present Illness ED Provider: Nelly Thomason PA-C HPI narrative: Patient is a 33 year old assigned female at with a history of high risk pregnancies and asthma presenting to the emergency department today with spotting. Patient states that she is currently approximately 11 weeks and has been having spotting. Patient states that she has had multiple miscarriages and is concerned about this . Patient denies any dizziness, lightheadedness, abdominal pain, nausea, vomiting, fever, chills, blurry vision, double vision, loss of vision, chest pain, difficulty breathing, shortness of breath, back pain, night sweats, pain with urination, increased urinary frequency, increased urinary urgency, blood in her stool, syncope or a near syncopal episode, recent trauma or falls, bowel incontinence, bladder incontinence, or any other complaints at this time. Relieving factors: none Exacerbating factors: none Associated symptoms: denies other symptoms Treatments prior to arrival: none Related Data Previous Rx's ?Medication ?Instructions ?Recorded ibuprofen 800 mg tablet 800 mg PO Q8H PRN pain #30 tabs 11/02/22 Allergies Allergy/AdvReac Type Severity Reaction Status Date / Time oxycodone [OXYCODONE] Allergy Unknown ITCHING, Verified 01/11/24 15:47 NAUSEA, HOT Review of Systems Constitutional: Constitutional: Reports no additional constitutional complaints, Denies chills, Denies fever(s) and Denies night sweats Eyes: Eyes: Reports no additional eye complaints, Denies blurry vision, Denies change in vision, Denies diplopia, Denies eye discharge, Denies loss of vision and Denies eye pain ENT: Denies dizziness Cardiovascular: Cardiovascular: Reports no additional cardiovascular complaints, Denies chest pain, Denies lightheadedness, Denies Loss of Consciousness and Denies dyspnea Respiratory: Respiratory: Reports no additional respiratory complaints and Denies dyspnea Gastrointestinal: Gastrointestinal: Reports no additional gastrointestinal complaints, Denies abdominal pain, Denies melena, Denies hematochezia, Denies change in bowel habits and Denies change in stool character Genitourinary: Genitourinary: Denies urinary frequency, Denies dysuria, Denies urinary incontinence, Denies urinary hesitancy and Denies urinary urgency Comments: vaginal spotting Musculoskeletal: Musculoskeletal: Reports no additional musculoskeletal complaints, Denies numbness and Denies tingling Neurologic: Denies dizziness, Denies loss of vision, Denies numbness and Denies tingling Psychiatric: Psychiatric: Reports no additional psychiatric complaints Endocrine: Endocrine: Reports no additional endocrine complaints Hematologic/Lymphatic: Hematologic/Lymphatic: Reports no additional hematologic/lymphatic complaints Allergic/Immunologic: Allergic/Immunologic: Reports no additional allergic/immunologic complaints PMFSH Past Medical History Attestation statement: The following information was validated with the patient. Source: old records reviewed and nursing notes reviewed Medical History Pulmonary nodule, right Bronchitis Asthma Surgical History Hx of arthroscopy of knee History of esophagogastroduodenoscopy (EGD) Hx of colonoscopy Hx of adenoidectomy History of tonsillectomy Hx of section Family History Family History Maternal Grandfather Pancreas cancer Social History Social History Household Members: Family Housing: Apartment Do you presently have visiting nurse or other home services: No Alcohol intake: current Alcohol intake frequency: holidays/special occasions only Patient Tobacco Use Status: Former Tobacco user e-Cigarette/Vaping Use: Former Use Second Hand Smoke Exposure: No Substance Use Type: Marijuana Advance Directives: No Advance Directives Information Provided: No Do you have a plan to hurt others: No Plan service: No Current occupational status: employed 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 handed Physical Exam ED Vital Signs: BMI result Body Mass Index 42.6 Const General: cooperative, no acute distress, alert and awake Nutritional Appearance: well nourished Orientation/consciousness: patient oriented x3 Limitations: no limitations HENMT Head: Yes normal to inspection and Yes atraumatic Ears: hearing grossly normal bilaterally and external ears normal General nose exam: Normal external nose present, no nasal discharge noted and no epistaxis Face and sinus: Yes normal facial exam, No abrasion and No laceration Mouth: Normal oral and palatal mucosa present, no drooling and no muffled voice Eyes General: appearance normal, both eyes and all related structures Periorbital: periorbital findings normal Eyelids: Yes eyelids normal Conjunctivae: conjunctivae normal Pupils: Equal, round and reactive pupils present EOM: EOMs intact bilaterally Neck Neck: Yes normal visual inspection, Yes full ROM and Yes no lymphadenopathy Chest Chest palpation & inspection: normal inspection of the chest Resp Effort & Inspection: normal respiratory effort and able to speak in complete sentences GI Inspection: Yes normal to inspection Neuro General: patient oriented x3 and moves all extremities Cranial nerves: Yes Equal, round and reactive pupils present Cognition (Neuro): normal cognition Extrem General: Yes normal to inspection, Yes full ROM and Yes capillary refill normal Psych Appearance: grossly normal Mental Status: mental status grossly normal Affect: normal affect Attitude: cooperative Thought process: Normal thought process present Thought content: Normal thought content present Insight: Good insight present (Psych) Course Course Course Narrative: RME performed by Nelly Thomason PA-C. Patient is a 33 year old assigned female at presenting to the emergency department with current and vaginal spotting. Patient states that she has had multiple miscarriages before and they usually happen before 11 weeks. Patient states that she is currently 11 weeks and last night she began cramping with some light spotting. Patient states that she is concerned that she is miscarrying again. Detailed physical exam and review of systems are deferred to the barrer and tacker. Labs, imaging, and swabs ordered. Patient placed back in the waiting room pending room availability and results. Medical Decision Making Medical Decision Making MDM Narrative: Patient is a 33 year old assigned female at with a history of asthma and high risk pregnancies presenting to the emergency department today with vaginal spotting. Patient's limited physical exam performed in triage was unremarkable. Patient's blood work showed an HCG of 23,118 which is consistent with her current status. Patient's US showed a single intrauterine gestation with an ultrasound age of 11 weeks and 3 days. Patient left the department without completing treatment. Patient left the department before myself or any of the other emergency department clinicians could explain to or review with the patient; physical exam findings, test results, need or lack there of for additional testing, need or lack there of for a procedure to be performed, need or lack there of for hospital admission / transfer, need or lack there of for prescription medication, treatment options, or a treatment plan. Differential Diagnosis Differential Diagnoses: The differential diagnosis associated with the presentation includes Implantation bleeding Threatened miscarriage Admission/Observation Consideration of admission/observation: Escalation of care including admission/observation considered Patient would have been admitted to the hospital had she completed her work up and it had any findings where hospital admission was appropriate, her clinical presentation warranted hospital admission, had myself or any other emergency distilling department supervisor had the ability to discuss need or lack there of for hospital admission, and the patient hadn't left the department without completing treatment. Lab Data [facility] Lab Attestation statement: I reviewed the patient's lab results. My interpretation of these results are in the [facility] Rationale portion of this note. 01/11/24 16:16 01/11/24 16:16 Labs: Lab Results 01/11/24 Range/Units 16:16 WBC 9.7 (4.8-10.8) X10*3/uL RBC 3.90 L (4.20-5.50) X10*6/uL Hgb 12.3 (12.0-16.0) g/dl Hct 34.9 L (37.0-47.0) % MCV 89.5 (80.0-98.0) fL MCH 31.5 (27.0-33.0) pg MCHC 35.2 H (31.0-35.0) g/dl RDW 12.1 (11.0-16.0) % Plt Count 220 D (160-400) X10*3/uL MPV 10.5 (9.4-12.3) fL Immature Gran % (Auto) 0.2 (0.0-0.4) % Neut % (Auto) 68.2 (45-73) % Lymph % (Auto) 22.1 (20-40) % [place] % (Auto) 7.5 (2-11) % Eos % (Auto) 1.7 (0-4) % Baso % (Auto) 0.3 (0-2) % Lymph # (Auto) 2.2 (1.2-4.9) X10*3/uL [place] # (Auto) 0.7 (0.1-1.2) X10*3/uL Eos # (Auto) 0.2 (0.0-0.4) X10*3/uL Baso # (Auto) 0.0 (0.0-0.2) X10*3/uL Abs Immat Gran (auto) 0.02 (0.00-0.03) X10*3/uL Absolute Neuts (auto) 6.6 (2.0-8.3) x10*3/uL Absolute Nucleated RBC 0.000 (0.0-0.012) X10*3/uL Nucleated RBC % (auto) 0.0 (0.0-0.2) /100WBC Sodium 139 (135-145) mmol/L Potassium 4.1 (3.3-5.1) mmol/L Chloride 107 (96-108) mmol/L Carbon Dioxide 22 (22-29) mmol/L Anion Gap 14 (12-20) BUN 9 (9-16) mg/dL Creatinine 0.75 (0.5-1.4) mg/dL Estim Creat Clear Calc 112.6 Estimated GFR > 60 Random Glucose 96 (60-115) mg/dL Calcium 9.9 D (8.4-10.2) mg/dL Magnesium 1.8 (1.6-2.6) mg/dL Total Bilirubin 0.2 (0.0-1.0) mg/dL AST 21 (5-31) U/L ALT 33 H (0-31) U/L Alkaline Phosphatase 49 (39-117) U/L Total Protein 7.4 (6.5-8.0) g/dL Albumin 4.0 (3.5-5.0) g/dL Beta HCG, Quant 96641 mIU/mL Independent Interpretation I performed an independent interpretation of an: Ultrasound Interpretation: My interpretation is in agreement with the radiologist's impression of this imaging study. EXAMINATION: US OBSTETRICAL ULTRASOUND CLINICAL INFORMATION: . Vaginal bleeding. Pain. COMPARISON: None available. LMP: October 23, 2023. Gestational age by maternal dates is 11 weeks 3 days. Estimated date of delivery by maternal dates is July 29, 2024. TECHNIQUE: Transabdominal pelvic ultrasound was performed. Images were supplemented by color Doppler. FINDINGS: There is a single intrauterine gestational sac with visible yolk sac, embryo/fetus, and cardiac activity. No significant subchorionic hemorrhage or hematoma is appreciated. HR: 163 beats per minute. CRL (crown rump length): 4.56 cm (11 weeks 3 days +/- 4 days). JOSE (estimated date of delivery): July 29, 2024 +/- 4 days. MATERNAL ADNEXA: The right maternal ovary could not be visualized by the technologist. The left maternal ovary measures 1.9 x 1.3 x 1.6 cm. No maternal adnexal mass is appreciated. No maternal pelvic ascites is seen. US/US OB <= 14 weeks fetus IMPRESSION: 1. Single intrauterine gestation with ultrasound gestational age of 11 weeks 3 days +/- 4 days. 2. Estimated date of delivery is July 29, 2024 +/- 4 days. 3. No maternal adnexal mass or pelvic ascites identified. Electronically signed by: Davidson Burnham MD 01/11/2024 04:25 PM EDT RP Dictated By: Davidson Burnham Signed By: Electronically signed by Davidson Burnham 01/11/24 [id number] Radiology Impression Discussion of test interpretation with radiology: I have reviewed the radiologist's reading. Discharge Plan Discharge Clinical Impression: , Vaginal bleeding Patient Disposition: Left W/O Completing Treatment Prescriptions: No Action ibuprofen 800 mg tablet 800 mg PO Q8H PRN (Reason: pain) Qty: 30 0RF Discharge Date/Time: 01/11/24 18:29
[2024-01-11 16:19] LABS: MANUAL DIFF FLAG NO
[2024-01-11 16:20] LABS: Basophils Percent Auto 0.3 % (0-2); Eosinophils Absolute Auto 0.2 X10*3/uL (0.0-0.4); Eosinophils Percent Auto 1.7 % (0-4); Hematocrit 34.9 % (37.0-47.0); Hemoglobin 12.3 g/dl (12.0-16.0); Imm Gran Abs Auto 0.02 X10*3/uL (0.00-0.03); Imm Gran Pct Auto 0.2 % (0.0-0.4); Lymphocytes Absolute Auto 2.2 X10*3/uL (1.2-4.9); Lymphocytes Percent Auto 22.1 % (20-40); Mean Corpuscular HGB Conc 35.2 g/dl (31.0-35.0); Mean Corpuscular Hemoglobin 31.5 pg (27.0-33.0); Mean Corpuscular Volume 89.5 fL (80.0-98.0); Mean Platelet Volume 10.5 fL (9.4-12.3); Monocytes Absolute Auto 0.7 X10*3/uL (0.1-1.2); Monocytes Percent Auto 7.5 % (2-11); Neutrophils Absolute Auto 6.6 x10*3/uL (2.0-8.3); Neutrophils Percent Auto 68.2 % (45-73); Platelet Count 220 X10*3/uL (160-400); Red Cell Distribution Width 12.1 % (11.0-16.0); White Blood Count 9.7 X10*3/uL (4.8-10.8)
[2024-01-11 16:43] LABS: Alanine Aminotransferase 33 U/L (0-31); Alkaline Phosphatase 49 U/L (39-117); Anion Gap 14 (12-20); Aspartate Amino Transferase 21 U/L (5-31); Bilirubin Total 0.2 mg/dL (0.0-1.0); Blood Urea Nitrogen 9 mg/dL (9-16); Calcium 9.9 mg/dL (8.4-10.2); Carbon Dioxide 22 mmol/L (22-29); Chloride 107 mmol/L (96-108); Creatinine Clr Calc Pharmacy 112.6; Estimated Glomerular Filt Rate > 60; Glucose Random 96 mg/dL (60-115); Magnesium 1.8 mg/dL (1.6-2.6); Potassium 4.1 mmol/L (3.3-5.1); Sodium 139 mmol/L (135-145); Total Protein 7.4 g/dL (6.5-8.0)
[2024-01-11 17:04] LABS: HCG Quantitative 23118 mIU/mL
== END 2024-01-11 18:29 | disposition left against medical advice (07) ==
PROVIDERS: Physician Assistant Medical; Emergency Provider Emergency Medicine
DX: O20.9 Hemorrhage in early pregnancy, unspecified (principal); O26.91 Pregnancy related conditions, unspecified, first trimester; Z3A.11 11 weeks gestation of pregnancy; Z79.899 Other long term (current) drug therapy
CPT/HCPCS: 36415; 76801; 80053; 83735; 84702; 85025; 99281; 99284